=== PATIENT | male | born 1955 | race Caucasian/White ===

== ENCOUNTER 2019-10-15 12:07 | Outpatient (CLI) | payer MEDICARE, SELFPAY ==
--- NOTE | 2019-10-15 12:59 | ECG_ITS ---
Measurements Intervals [place] Rate: 64 P: -3 [place]: 177 QRS: -20 QRSD: 90 T: -11 QT: 385 QTc: 400 Interpretive Statements SINUS RHYTHM BORDERLINE T WAVE ABNORMALITY- INFERIOR LEADS BASELINE ARTIFACT- I, III, AVR, AVL, AVF, V6 BORDERLINE ECG Electronically Signed On 10-15-2019 13:17:00 WOOD REPATCHER by Lizandro Jenkins D.O.
[2019-10-15 13:29] LABS: Urine Cotinine NEGATIVE
[2019-10-15 13:31] LABS: Albumin Level 4.6 g/dL (3.5-5.1); Estimated Glomerular Filt Rate > 60; Glucose 112 mg/dL (75-110)
[2019-10-15 14:27] LABS: Basophils Absolute Auto 0.1 K/mm3 (0.0-0.1); Basophils Percent Auto 1.2 % (0.2-1.2); Eosinophils Absolute Auto 0.1 K/mm3 (0-0.3); Eosinophils Percent Auto 1.3 % (0-4.4); Hematocrit 46.2 % (42.0-52.0); Hemoglobin 15.3 g/dL (14.0-18.0); Immature Granulocyte Absolute 0.04 K/mm3 (0.00-0.031); Immature Granulocyte Percent A 0.6 % (0-0.5); Lymphocytes Absolute Auto 1.71 K/mm3 (0.9-3.2); Lymphocytes Percent Auto 25.6 % (18.3-44.2); Mean Corpuscular HGB Conc 33.1 g/dl (32-36); Mean Corpuscular Hemoglobin 32.8 pg (26-34); Mean Corpuscular Volume 98.9 fl (80-100); Monocytes Absolute Auto 0.7 K/mm3 (0.1-0.6); Monocytes Percent Auto 10.5 % (2.6-8.5); Neutrophils Absolute Auto 4.1 K/mm3 (1.3-6.7); Neutrophils Percent Auto 60.8 % (45.5-73.1); Platelet Count Result 281 k/mm3 (150-375); Red Blood Count 4.67 M/mm3 (4.6-6.20); Red Cell Distribution Width 12.2 % (11.5-14.5); White Blood Count 6.7 K/mm3 (4.5-10.0)
== END 2019-10-15 12:08 | disposition home or self-care (01) ==
LOC: ANHSURGERY 12:14
PROVIDERS: PCP Chiropractor; Visit Provider Orthopaedic Surgery
DX: Z01.818 Encounter for other preprocedural examination (principal); M17.0 Bilateral primary osteoarthritis of knee; Z41.9 Encounter for procedure for purposes other than remedying health state, unspecified
CPT/HCPCS: 36415; 80307; 82040; 82565; 82947; 83036; 85025; 87081; 93005

== ENCOUNTER 2019-12-28 08:01 | Outpatient (CLI) | payer MEDICARE, SELFPAY ==
[2019-12-28 09:23] LABS: Basophils Absolute Auto 0.1 K/mm3 (0.0-0.1); Eosinophils Absolute Auto 0.1 K/mm3 (0-0.3); Eosinophils Percent Auto 2.2 % (0-4.4); Hematocrit 45.9 % (42.0-52.0); Hemoglobin 15.4 g/dL (14.0-18.0); Immature Granulocyte Absolute 0.02 K/mm3 (0.00-0.031); Immature Granulocyte Percent A 0.3 % (0-0.5); Lymphocytes Absolute Auto 1.64 K/mm3 (0.9-3.2); Lymphocytes Percent Auto 27.7 % (18.3-44.2); Mean Corpuscular HGB Conc 33.6 g/dl (32-36); Mean Corpuscular Hemoglobin 33.2 pg (26-34); Mean Corpuscular Volume 98.9 fl (80-100); Monocytes Absolute Auto 0.7 K/mm3 (0.1-0.6); Neutrophils Absolute Auto 3.4 K/mm3 (1.3-6.7); Neutrophils Percent Auto 57.8 % (45.5-73.1); Platelet Count Result 259 k/mm3 (150-375); Red Blood Count 4.64 M/mm3 (4.6-6.20); Red Cell Distribution Width 12.3 % (11.5-14.5); White Blood Count 5.9 K/mm3 (4.5-10.0)
[2019-12-28 09:33] LABS: Hemoglobin A1C 5.3 % (<5.7); Urine Cotinine NEGATIVE
[2019-12-28 09:35] LABS: Albumin Level 4.6 g/dL (3.5-5.1); Estimated Glomerular Filt Rate > 60; Glucose 101 mg/dL (75-110)
== END 2019-12-28 08:02 | disposition home or self-care (01) ==
PROVIDERS: PCP Family Medicine; Visit Provider Orthopaedic Surgery
DX: Z01.818 Encounter for other preprocedural examination (principal); M17.0 Bilateral primary osteoarthritis of knee
CPT/HCPCS: 36415; 80307; 82040; 82565; 82947; 83036; 85025; 87081

== ENCOUNTER 2020-01-12 | Outpatient (CLI) | payer MEDICARE, SELFPAY ==
[2020-01-12 17:31] LABS: SARS-CoV-2 RNA PCR Negative
== END 2020-01-12 00:01 | disposition home or self-care (01) ==
LOC: ANHCOVIDDT
PROVIDERS: PCP Family Medicine; Visit Provider Orthopaedic Surgery
DX: Z01.818 Encounter for other preprocedural examination (principal); M17.0 Bilateral primary osteoarthritis of knee; Z11.59 Encounter for screening for other viral diseases
CPT/HCPCS: 87635; C9803; U0003

== ENCOUNTER 2020-01-14 00:51 | Day surgery (SDC) | payer MEDICARE, SELFPAY ==
[2019-10-15 12:23] VITALS: BP 182/100; PULSE 80; RESP 20; TEMP 36.8; O2SAT 99; BMI 26.7
[2019-12-28 08:21] VITALS: BMI 26.9
[2019-12-28 08:46] VITALS: BP 164/90; PULSE 80; RESP 20; TEMP 37; O2SAT 98
[2020-01-14] VITALS (14 sets, daily range): BP systolic 128–162; BP diastolic 72–95; PULSE 79–90; RESP 10–19; TEMP 36.4–37.2; O2SAT 96–100; BMI 26.9; BMI 28.5
--- NOTE | ~2020-01-14 | XR_ITS ---
EXAMINATION: XR knee LT 2V DATE: 01/14/2020 10:33 INDICATION: Left knee arthroplasty. Postop. TECHNIQUE: 2 views of left knee were obtained. COMPARISON: Left knee radiographs 08/20/2019 FINDINGS: There is a total left knee arthroplasty with patellar resurfacing in near-anatomic alignmen t. No fracture. There is gas in the knee joint and soft tissues, consistent with recent surgery. IMPRESSION: 1. Total left knee arthroplasty in near-anatomic alignment. Reviewed, dictated and finalized at location A.
--- NOTE | 2020-01-14 07:14 | WPDHPUPDATE1 ---
History and Physical Update Update Date/Time: 01/14/20 07:14 History and Physical has been reviewed, including an updated exam of the patient. There are NO changes in the patient's condition. Risks, benefits, and alternatives have been discussed and questions answered. Patient agrees to proceed with procedure.
[2020-01-14] MEDS: LACTATED RINGERS 1,000 ML 30 ML IV CONT ×2 (07:15→10:22)
[2020-01-14] MEDS: TRANEXAMIC ACID 1,000MG/ISO100 1,000 MG/100 ML BAG 200 MG IVPB (07:17)
--- NOTE | 2020-01-14 07:20 | WPDANESEPPF ---
Anes - Initial Pre Proc Eval Procedure: Operation Date: 01/14/20 07:30 Proposed Procedures p Left Total Knee Arthroplasty - Eris Jacobs MD Date/Time: 01/14/20 07:20 Surgeon: Eris Jacobs MD Pre Op Diagnosis: Left Knee OA Patient Data Age: 64 Gender: M Height: 1.88 m Weight: 95.3 kg Last Vital Signs Temp 36.8 C 01/14/20 06:30 Pulse 80 01/14/20 06:30 Resp 19 01/14/20 06:30 BP 133/72 01/14/20 06:30 Pulse Ox 100 01/14/20 06:30 Allergies Allergy/AdvReac Type Severity Reaction Status Date / Time No Known Allergies Allergy Unverified 12/28/19 08:15 Home Medications Medication Instructions Recorded Confirmed Type acetaminophen [Tylenol Extra 1,000 mg PO BID PRN 10/15/19 01/08/20 History Strength] acetaminophen-codeine 1 tablet PO DAILY 10/15/19 01/08/20 History [Tylenol-Codeine #3] multivitamin 1 tablet PO DAILY 10/15/19 01/08/20 History carvedilol [Coreg] 3.125 mg PO BID 12/28/19 01/08/20 History meloxicam [Mobic] 15 mg PO DAILY 12/28/19 01/08/20 History ECG: Date of Service: 10/15/19 Procedure(s): CA 12 lead EKG Accession Number(s): [id number] cc: ~ Measurements Intervals [place] Rate: 64 P: -3 [place]: 177 QRS: -20 QRSD: 90 T: -11 QT: 385 QTc: 400 Interpretive Statements SINUS RHYTHM BORDERLINE T WAVE ABNORMALITY- INFERIOR LEADS BASELINE ARTIFACT- I, III, AVR, AVL, AVF, V6 BORDERLINE ECG Electronically Signed On 10-15-2019 13:17:00 PERINATAL SPECIALIST by Lizandro Jenkins D.O. Dictated By: Lizandro Jenkins DO 10/15/19 1325 Patient hx anesthesia problems: none Family hx anesthesia problems: none PMFSH Past Medical History Medical History (Updated 01/14/20 @ 07:22 by Doe Del Valle MD) Colon cancer COLON RESECTION 2008 HTN (hypertension) Osteoarthritis of both knees Anes - Eval Final PreProcedure Day of Procedure 01/14/20 07:20 Patient weight: overweight Heart: regular rate and rhythm Lungs: clear to auscultation and normal air movement Airway: Mallampati scale class II Neurological: alert and oriented Last oral intake: >/= 8 hours ASA classification: III Emergent: no Anesthetic plan: proceed Anesthesia type and monitoring: general LMA Informed Consent: The patient's anesthetic plan and its attendant risks and benefits were discussed with the patient/family/POA. Questions were solicited and answers provided to the satisfaction of the patient/family/POA.
--- NOTE | 2020-01-14 07:22 | WPDANESPNB ---
Anes - Peripheral Nerve Block Date/Time: 01/14/20 07:22 I have discussed with the patient/family/POA the placement of a peripheral nerve block for post-operative pain management, including associated risks, benefits, complications, and side effects. Alternative methods of post-operative analgesia were detailed. Questions were solicited and answers provided to the satisfaction of the patient/family/POA. Time-Out: A pre-procedural Time-Out was completed immediately before starting the procedure and confirmed: Patient Identification, Site, Procedure, Patient Position and the Availability of Requisite Equipment. Clinical Indications: Acute post-operative pain management requested by the operative surgeon. Nerve Block Insertion Note Anes-nerve block: adductor canal left Patient position: supine Skin prep: chlorhexidine Needle: 22 gauge, stimulating, insulated echogenic needle. Needle length: 80 mm Technique: ultrasound Technique comment: in plane Injectate: bupivacaine 0.5% with epi 5 mcg/ml (30cc) Observations: tolerated well Complications: none Procedure start time:: 730 Procedure end time:: 735
[2020-01-14] MEDS: ceFAZolin 2 GM/D5W 50 ML 2 GM/50 ML BAG IVPB ×2 (07:41→15:50)
[2020-01-14] MEDS: GENTAMICIN BONE CEMENT REFOBACIN 1 EACH TOPICAL (08:28)
--- NOTE | 2020-01-14 10:59 | SUR.PHASEI ---
1100 UPDATED SPOUSE ON PT CONDITION
--- NOTE | 2020-01-14 11:13 | SUR.PHASEI ---
111 sbar faxed floor notified
--- NOTE | 2020-01-14 11:50 | PC.NURSE ---
This patient, Robert Naylor, was admitted to 2 Medical Room 259-01. Patient/family oriented to hospital policies and general routines including ID bracelet, bed and alarms, visiting hours, pain management, procedures, bathroom and other care routines, personal items, smoking policy, room service/diet, and visiting hours. Valuables list has been completed. Information on how to activate the Rapid Response Team has been discussed. Patient/Family are encouraged to report perceived risks to care and to ask questions if they do not understand what they are told or what they should do.
[2020-01-14] MEDS: SODIUM CHLORIDE 0.9% IV 1,000 ML 125 ML IV CONT (12:39)
[2020-01-14] MEDS: DOCUSATE SODIUM 100 MG CAPSULE PO (17:36)
[2020-01-14] MEDS: ASPIRIN 81 MG ENTERIC TABLET PO (17:36)
[2020-01-14] MEDS: carvediloL 3.125 MG TABLET PO (17:37)
[2020-01-14] MEDS: FAMOTIDINE 20 MG TABLET PO (20:31)
[2020-01-15] MEDS: ceFAZolin 2 GM/D5W 50 ML 2 GM/50 ML BAG IVPB ×2 (00:07→08:18)
[2020-01-15 01:29] VITALS: BP 139/79; PULSE 95; RESP 20; TEMP 36.2; O2SAT 99
[2020-01-15 05:01] LABS: Basophils Percent Auto 0.1 % (0.2-1.2); Eosinophils Percent Auto 0.1 % (0-4.4); Hemoglobin 12.5 g/dL (14.0-18.0); Immature Granulocyte Percent A 0.7 % (0-0.5); Lymphocytes Absolute Auto 1.59 K/mm3 (0.9-3.2); Lymphocytes Percent Auto 10.7 % (18.3-44.2); Mean Corpuscular HGB Conc 33.8 g/dl (32-36); Mean Corpuscular Hemoglobin 33.1 pg (26-34); Mean Corpuscular Volume 97.9 fl (80-100); Mean Platelet Volume 8.8 fl (7.4-10.4); Monocytes Absolute Auto 1.1 K/mm3 (0.1-0.6); Monocytes Percent Auto 7.3 % (2.6-8.5); Neutrophils Absolute Auto 12.1 K/mm3 (1.3-6.7); Neutrophils Percent Auto 81.1 % (45.5-73.1); Platelet Count Result 224 k/mm3 (150-375); Red Blood Count 3.78 M/mm3 (4.6-6.20); Red Cell Distribution Width 12.4 % (11.5-14.5); White Blood Count 14.9 K/mm3 (4.5-10.0)
[2020-01-15 05:12] LABS: Blood Urea Nitrogen 10 mg/dL (9-20); Calcium 8.6 mg/dL (8.4-10.2); Carbon Dioxide 26 mmol/L (22-30); Chloride 99 mmol/L (98-107); Estimated CRCL calculation 133 ml/min; Estimated Glomerular Filt Rate > 60; Glucose 113 mg/dL (75-110); Potassium 4.1 mmol/L (3.4-5.0); Sodium 131 mmol/L (137-145)
[2020-01-15 05:29] VITALS: BP 126/72; PULSE 78; RESP 18; TEMP 35.9; O2SAT 98
[2020-01-15] MEDS: MELOXICAM 7.5 MG TABLET 15 MG PO (08:16)
[2020-01-15] MEDS: FAMOTIDINE 20 MG TABLET PO (08:16)
[2020-01-15] MEDS: DOCUSATE SODIUM 100 MG CAPSULE PO (08:16)
[2020-01-15 08:17] VITALS: PULSE 82
[2020-01-15] MEDS: MULTIVITAMINS THERAPEUTIC TAB (*BKC) 1 TABLET PO (08:17)
[2020-01-15] MEDS: ASPIRIN 81 MG ENTERIC TABLET PO (08:17)
[2020-01-15] MEDS: carvediloL 3.125 MG TABLET PO (08:17)
[2020-01-15 14:00] VITALS: BP 121/67; PULSE 78; RESP 19; TEMP 36.4; O2SAT 100
--- NOTE | 2020-01-15 16:13 | PM.PROC ---
Procedure Note - Detailed Date of procedure: 01/14/20 Pre-op diagnosis: Left Knee OA Post-op diagnosis: same Procedure performed: Total knee arthroplasty Description of procedure: Complex knee arthroplasty. Preoperative posterior cruciate insufficiency. Severe varus thrust, with global laxity. Hyperextension gait preoperatively. Required posterior stabilized knee and polyethylene tibial buildup, despite modest bony resection. Moderate medial release only due to medial pseudolaxity. Bone quality was excellent. Short tibial stem was used due to concern about the patient's gait disturbance and additional stress on the tibial component due to preoperative bone loss and ligament dysfunction. Implants: [employer] knee system, [employer] base plate cemented tibia size 6, Posterior cruciate stabilized cemented femoral component size 5 ,and an 19 mm posterior stabilized polyethylene insert. 38mm polyethylene patella component. Anesthesia: GETA and regional (subsartorial nerve block) Surgeon: Eris Jacobs MD Estimated blood loss (mL): 200 Tourniquet time (min): 90 Drains: No Complications: None Condition: stable Findings: OPERATIVE DETAILS: The patient was given a nerve block preoperatively, and then brought to the operating room. A general anesthetic was administered. The leg was prepped and draped in the usual sterile fashion. The limb was elevated and the tourniquet inflated to 300 mmHg during the procedure. A longitudinal incision was created along the medial border of the patella and patellar tendon, and a high mid-vastus approach to the knee was performed. A moderate medial release was taken. The knee was then flexed. The osteophytes were carefully removed. The intramedullary guide was placed in the femoral canal. The distal femoral resection was then taken with the oscillating saw, at 8mm. The collateral ligaments were carefully protected. The tibia was carefully exposed. The jig was applied, and the proximal tibia was resected according to the preoperative plan, with 2mm medial resection. The knee was balanced in extension, with slight increased medial release needed. Extension gap measured a 16 mm medially and 19 mm laterally. Later after assessment of the posterior gap it was clear that the 19 mm polyethylene would be appropriate for the flexion gap and lateral gap. Thus, slight increased medial release was taken to accommodate the 19 mm polyethylene. The anterior cruciate ligament and meniscal remnants were removed. The posterior cruciate ligament was sacrificed. The patella was measured. Patellar resection was carried out with the oscillating saw. The 38 mm asymmetric button fit essentially lines aligned. Less than 1 mm overhang proximally was observed after final cementation. The femur was sized and rotation assessed using a combination of gap balancing, posterior referencing, and the AP axis. External rotation was increased to 4?. The 4 in 1 cutting block, and the box cut guide were used to finish the femoral cuts after equal gaps were assured. The osteophytes were carefully removed from the back of the knee. The knee was copiously irrigated with antibiotic solution periodically throughout the procedure. The meniscal remnants were removed. The spacer block was used to confirm equal flexion and extension gaps. The tibia was sized and broached. Central drilling for the short stem was performed. The bony surfaces were prepared for cementing with pulsatile lavage. The real tibia,femur, and patella were cemented. Excess cement was carefully removed. Patellar tracking was carefully assessed. No additional releases were required. The real polyethylene insert was finally placed. Range of motion was from 0-135 degrees easily easily. Excellent overall balance. 1 mm medial gap in extension and 2 mm extension lateral gap. Flexion was 2 mm and 3 mm. It was observed that the hyperextension moment could be reproduced with the 16 mm polyethyl
--- NOTE | 2020-01-15 16:25 | P.DS_ITS ---
DS: Admitting Diagnosis Admitting Diagnosis Admitting Diagnosis: Degenerative arthritis, knee. DS: Discharge Diagnosis Discharge Diagnosis (1) History of arthroplasty of left knee: Code(s): Z96.652 - Presence of left artificial knee joint Status: Acute DS: Summary Hospital Course Reason for hospitalization: Total knee arthroplasty. Hospital Course: Tolerated surgery well. Progressed appropriately with therapy. Status at Discharge Functional status at discharge: uses cane/walker Time Spent with Patient Time attestation: Total time spent providing and/or coordinating discharge services: Exam Const: General: no acute distress Resp: Effort & Inspection: normal respiratory effort Skin: Other: Wound healing well. Mepilex dressing intact. No hematoma or drainage. Neuro: Motor exam (neuro): 5/5 motor strength present throughout Sensory Exam: normal sensation Psych: Mental Status: mental status grossly normal Speech and movement: Normal speech and movement present DS: Data Data Completed and Pending Labs on day of discharge: Labs from last 24 hours 01/15/20 01/15/20 04:47 04:47 WBC 14.9 H RBC 3.78 L Hgb 12.5 L Hct 37.0 L MCV 97.9 MCH 33.1 MCHC 33.8 RDW 12.4 Plt Count 224 MPV 8.8 Immature Gran % (Auto) 0.7 H Neut % (Auto) 81.1 H Lymph % (Auto) 10.7 L [place] % (Auto) 7.3 Eos % (Auto) 0.1 Baso % (Auto) 0.1 L Lymph # (Auto) 1.59 [place] # (Auto) 1.1 H Eos # (Auto) 0.0 Baso # (Auto) 0.0 Abs Immat Gran (auto) 0.10 H Absolute Neuts (auto) 12.1 H Absolute Nucleated RBC 0.0 Nucleated RBC % 0.0 Sodium 131 L Potassium 4.1 Chloride 99 Carbon Dioxide 26 BUN 10 Creatinine 0.50 L Estim Creat Clear Calc 133 Estimated GFR > 60 Glucose 113 H Calcium 8.6 Discharge Plan Discharge Patient Disposition: Home, Self-Care Discharge Instructions: See instruction sheet. Patient Instructions: Antibiotic Form, Pain Management (DC), Fall Prevention (DC), Knee Replacement (DC), Knee Arthroscopy (DC) Follow-up/Referrals: Eris Jacobs MD [Physician] - Discharge Medications: New oxycodone-acetaminophen 5-325 mg tablet 1 - 2 tablet PO Q4-6H MDD 6 tablets PRN (Reason: pain (scale score 7-10)) Qty: 40 RF: 0 Continued multivitamin Tablet 1 tablet PO DAILY RF: 0 acetaminophen [Tylenol Extra Strength] 500 mg Tablet 1,000 mg PO BID PRN (Reason: PAIN) RF: 0 meloxicam [Mobic] 15 mg Tablet 15 mg PO DAILY RF: 0 carvedilol [Coreg] 3.125 mg Tablet 3.125 mg PO BID RF: 0 lisinopril 20 mg tablet 20 mg PO DAILY RF: 0 No Action acetaminophen-codeine [Tylenol-Codeine #3] 300-30 mg Tablet 1 tablet PO DAILY RF: 0 Discharge Date/Time: 01/15/20 15:52 Quality VTE Prophylaxis VTE prophylaxis: mechanical ordered (CHINYERE guardado and Agustin)
== END 2020-01-15 15:52 | disposition home or self-care (01) ==
LOC: ANHSURGERY 06:19 → ANH2MED 11:46
PROVIDERS: PCP Chiropractor; Visit Provider Orthopaedic Surgery
PROC: (CPT 27447; principal; 2020-01-14 07:30)
DX: M17.12 Unilateral primary osteoarthritis, left knee (principal); G89.18 Other acute postprocedural pain; I10 Essential (primary) hypertension; Z85.038 Personal history of other malignant neoplasm of large intestine; Z90.49 Acquired absence of other specified parts of digestive tract
CPT/HCPCS: 27447; 64447; 36415; 73560; 80048; 85025; 86850; 86900; 86901; 97110; 97116; 97161; 97165; A9270; C1713; C1776; J0131; J0171; J0690; J1100; J1170; J1885; J2250; J2270; J2405; J2704; J2795; J3010; J7030; J7120

== ENCOUNTER 2020-10-28 13:46 | Outpatient (CLI) | payer MEDICARE, SELFPAY ==
[2020-10-28 14:31] LABS: Hematocrit 48.3 % (42.0-52.0); Hemoglobin 16.7 g/dL (14.0-18.0)
--- NOTE | 2020-10-28 14:31 | ECG_ITS ---
Measurements Intervals [place] Rate: 62 P: [place]: 0 QRS: -18 QRSD: 93 T: 0 QT: 400 QTc: 406 Interpretive Statements SINUS OR ECTOPIC ATRIAL RHYTHM DELAYED PRECORDIAL R/S TRANSITION BORDERLINE T WAVE ABNORMALITY- INFERIOR LEADS BASELINE ARTIFACT- I, II, III, AVR, AVL, AVF, V4-V6 BORDERLINE ECG Electronically Signed On 10-28-2020 15:09:55 PORTFOLIO CONSULTANT by Lizandro Jenkins D.O.
[2020-10-28 14:42] LABS: Albumin Level 4.9 g/dL (3.5-5.1); Estimated Glomerular Filt Rate > 60; Glucose 109 mg/dL (75-110)
[2020-10-28 14:51] LABS: Urine Cotinine NEGATIVE
[2020-10-28 23:17] LABS: Hemoglobin A1C 5.1 % (<5.7)
== END 2020-10-28 13:47 | disposition home or self-care (01) ==
PROVIDERS: PCP Chiropractor; Visit Provider Orthopaedic Surgery
DX: M17.11 Unilateral primary osteoarthritis, right knee (principal); Z01.818 Encounter for other preprocedural examination; R94.31 Abnormal electrocardiogram [ECG] [EKG]
CPT/HCPCS: 80307; 82040; 82565; 82947; 83036; 85014; 85018; 93005

== ENCOUNTER 2020-12-05 13:57 | Outpatient (CLI) | payer MEDICARE, SELFPAY ==
[2020-12-05 15:42] LABS: Basophils Percent Auto 0.6 % (0.2-1.2); Eosinophils Absolute Auto 0.1 K/mm3 (0-0.3); Eosinophils Percent Auto 1.1 % (0-4.4); Hematocrit 46.9 % (42.0-52.0); Hemoglobin 15.6 g/dL (14.0-18.0); Immature Granulocyte Absolute 0.02 K/mm3 (0.00-0.031); Immature Granulocyte Percent A 0.3 % (0-0.5); Lymphocytes Absolute Auto 1.53 K/mm3 (0.9-3.2); Lymphocytes Percent Auto 23.2 % (18.3-44.2); Mean Corpuscular HGB Conc 33.3 g/dl (32-36); Mean Corpuscular Hemoglobin 33.5 pg (26-34); Mean Corpuscular Volume 100.6 fl (80-100); Mean Platelet Volume 8.6 fl (7.4-10.4); Monocytes Absolute Auto 0.7 K/mm3 (0.1-0.6); Monocytes Percent Auto 11.1 % (2.6-8.5); Neutrophils Absolute Auto 4.2 K/mm3 (1.3-6.7); Neutrophils Percent Auto 63.7 % (45.5-73.1); Platelet Count Result 273 k/mm3 (150-375); Red Blood Count 4.66 M/mm3 (4.6-6.20); Red Cell Distribution Width 12.3 % (11.5-14.5); White Blood Count 6.6 K/mm3 (4.5-10.0)
== END 2020-12-05 13:58 | disposition home or self-care (01) ==
LOC: ANHSURGERY 14:00
PROVIDERS: PCP Chiropractor; Visit Provider Orthopaedic Surgery
DX: M17.11 Unilateral primary osteoarthritis, right knee (principal); Z01.818 Encounter for other preprocedural examination
CPT/HCPCS: 36415; 85025; 86850; 86900; 86901; 87081

== ENCOUNTER → 2020-12-12 04:09 | Outpatient (CLI) | payer MEDICARE, SELFPAY ==
[2020-12-12 19:58] LABS: SARS-CoV-2 RNA PCR Negative
== END ==
PROVIDERS: PCP Chiropractor; Visit Provider Orthopaedic Surgery
DX: Z01.812 Encounter for preprocedural laboratory examination (principal); Z20.822 Contact with and (suspected) exposure to COVID-19
CPT/HCPCS: C9803; U0003; U0005

== ENCOUNTER 2020-12-15 01:04 | Day surgery (SDC) | payer MEDICARE, SELFPAY ==
[2020-12-05 14:29] VITALS: BP 182/97; PULSE 58; RESP 18; TEMP 36.9; O2SAT 97; BMI 28.8
--- NOTE | 2020-12-14 09:58 | WPDANESEPPF ---
Anes - Initial Pre Proc Eval Procedure: Operation Date: 12/15/20 07:30 Proposed Procedures p Right Total Knee Arthroplasty - Eris Jacobs MD Date/Time: 12/14/20 09:58 Surgeon: Eris Jacobs MD Pre Op Diagnosis: primary OA right knee Patient Data Age: 65 Gender: M Height: 1.83 m Weight: 96.2 kg Last Vital Signs Temp 36.9 C 12/05/20 14:29 Pulse 58 L 12/05/20 14:29 Resp 18 12/05/20 14:29 BP 182/97 H 12/05/20 14:29 Pulse Ox 97 12/05/20 14:29 Allergies Allergy/AdvReac Type Severity Reaction Status Date / Time No Known Allergies Allergy Verified 12/15/20 06:10 Home Medications Medication Instructions Recorded Confirmed Type acetaminophen-codeine 1 tablet PO BID PRN 10/15/19 12/15/20 History [Tylenol-Codeine #3] multivitamin 1 tablet PO DAILY 10/15/19 12/15/20 History meloxicam [Mobic] 15 mg PO DAILY 12/28/19 12/15/20 History lisinopril 20 mg PO DAILY 01/14/20 12/15/20 History acetaminophen [Tylenol Extra 1,000 mg PO QID PRN 12/05/20 12/15/20 History Strength] carvedilol 12.5 mg PO BID 12/05/20 12/15/20 History Patient hx anesthesia problems: none Family hx anesthesia problems: none PMFSH Past Medical History Medical History (Updated 12/14/20 @ 09:59 by Doe Del Valle MD) Anxiety Colon cancer COLON RESECTION 2008 HTN (hypertension) Osteoarthritis of both knees Surgical History Surgical History History of arthroplasty of left knee (~01/11/20) Family History Family History Other Colon cancer Mother Hypertension Social History Social History Smoking status: Never smoker Alcohol intake: current Drinks per week: 84 Alcohol use details: BEER Substance use: never Substance use type: prescription drug Other substance usage details: Tylenol 3 Last use: 01/13/2020 Living arrangements: with family Additional living arrangements comments: Gender identity (if verbalized by the patient): Male Spiritual care concerns: No Anes - Eval Final PreProcedure Day of Procedure 12/14/20 09:58 Patient weight: overweight Heart: regular rate and rhythm Lungs: clear to auscultation and normal air movement Airway: Mallampati scale class II Neurological: alert and oriented Last oral intake: >/= 8 hours ASA classification: II Emergent: no Anesthetic plan: proceed Anesthesia type and monitoring: general LMA Informed Consent: The patient's anesthetic plan and its attendant risks and benefits were discussed with the patient/family/POA. Questions were solicited and answers provided to the satisfaction of the patient/family/POA.
--- NOTE | 2020-12-14 10:00 | WPDANESPNB ---
Anes - Peripheral Nerve Block Date/Time: 12/14/20 10:00 I have discussed with the patient/family/POA the placement of a peripheral nerve block for post-operative pain management, including associated risks, benefits, complications, and side effects. Alternative methods of post-operative analgesia were detailed. Questions were solicited and answers provided to the satisfaction of the patient/family/POA. Time-Out: A pre-procedural Time-Out was completed immediately before starting the procedure and confirmed: Patient Identification, Site, Procedure, Patient Position and the Availability of Requisite Equipment. Clinical Indications: Acute post-operative pain management requested by the operative surgeon. Nerve Block Insertion Note Anes-nerve block: adductor canal right Patient position: supine Skin prep: chlorhexidine Needle: 22 gauge, stimulating, insulated echogenic needle. Needle length: 80 mm Technique: ultrasound Technique comment: in plane Injectate: bupivacaine 0.5% with epi 5 mcg/ml (30cc) Observations: tolerated well Complications: none Procedure start time:: 720 Procedure end time:: 725
[2020-12-15] VITALS (14 sets, daily range): BP systolic 138–189; BP diastolic 68–113; PULSE 65–98; RESP 10–20; TEMP 35.9–37.2; O2SAT 98–100
--- NOTE | ~2020-12-15 | XR_ITS ---
EXAMINATION: XR knee RT 2V DATE: 12/15/2020 10:27 CDT INDICATION: Right total knee arthroplasty TECHNIQUE: 2 views right knee FINDINGS: There is a right total knee arthroplasty in expected position. Subcutaneous gas with fluid and air in the joint are consistent with recent surgery. No evidence of periprosthetic fracture. IMPRESSION: 1. Recent right total knee arthroplasty. Reviewed, dictated and finalized at location B.
[2020-12-15] MEDS: ACETAMINOPHEN 500 MG TABLET 1000 MG PO (06:33)
[2020-12-15] MEDS: LACTATED RINGERS 1,000 ML 30 ML IV CONT ×2 (06:40→10:11)
[2020-12-15] MEDS: TRANEXAMIC ACID 1,000MG/ISO100 1,000 MG/100 ML BAG 200 MG IVPB (06:44)
--- NOTE | 2020-12-15 07:03 | WPDHPUPDATE1 ---
History and Physical Update Update Date/Time: 12/15/20 07:03 History and Physical has been reviewed, including an updated exam of the patient. There are NO changes in the patient's condition. Risks, benefits, and alternatives have been discussed and questions answered. Patient agrees to proceed with procedure.
[2020-12-15] MEDS: ceFAZolin 2 GM/D5W 50 ML 2 GM/50 ML BAG IVPB (07:26)
--- NOTE | 2020-12-15 10:28 | P.OP_ITS ---
Procedure Note - Detailed Date of procedure: 12/15/20 Pre-op diagnosis: primary OA right knee Post-op diagnosis: same Procedure performed: Total knee arthroplasty, right. Description of procedure: Excellent bone quality. Severe medial pseudolaxity. Moderate medial release. Posterior stabilized balanced very well. Anterior patella prominence noted pre-op was unchanged post-op. Slight blend on the anterolateral femur with the size 5. The 6 appeared oversized. Implants: [employer] size 5 press-fit femur, size 6 cemented low-profile tibia, 14mm polyethylene insert (posterior stabilized), 38mm asymmetric metal backed patellar component. Anesthesia: GETA and regional (subsartorial nerve block) Surgeon: Eris Jacobs MD Estimated blood loss (mL): 200 Drains: No Complications: None Condition: stable Disposition: PACU Findings: OPERATIVE DETAILS: The patient was given a nerve block preoperatively, and then brought to the operating room. A general anesthetic was administered. The leg was prepped and draped in the usual sterile fashion. The limb was elevated and the tourniquet inflated to 300 mmHg during initial exposure, and cementation. A longitudinal incision was created along the medial border of the patella and patellar tendon, and a Trivector approach to the knee was performed. A moderate medial release was taken. The knee was then flexed. The osteophytes were carefully removed. The intramedullary guide was placed in the femoral canal. The distal femoral resection was then taken with the oscillating saw. The collateral ligaments were carefully protected. The tibia was carefully exposed. The jig was applied, and the proximal tibia was resected according to preoperative plan. The knee was balanced in extension. Appropriate releases were taken where needed. The anterior cruciate ligament and meniscal remnants were removed. The posterior cruciate ligament was preserved. The patella was measured. Patellar resection was carried out with the oscillating saw. The lug holes drilled. The femur was sized and rotation assessed using a combination of gap balancing, posterior referencing, and the AP axis. The 4 in 1 cutting block was used to finish the femoral cuts after equal gaps were assured. The box cut was taken, and the trial femur placed. The lug holes were drilled. The osteophytes were carefully removed from the back of the knee. The knee was copiously irrigated with antibiotic solution periodically throughout the procedure. The meniscal remnants were removed. The spacer block was used to con firm equal flexion and extension gaps. Slight increase medial release performed. The tibia was sized and broached. The bony surfaces were prepared for cementing with pulsatile lavage. The real tibial component was cemented into position followed by press fitting the femoral component. Excess cement was carefully removed. The patella component was press-fit. Patellar tracking was carefully assessed. No additional releases were required. The wound was closed with #1 Vycril suture, #2 Quill suture, 0-Quill suture, and 2-0 Quill suture followed by Steri-Strips. A sterile bulky dressing was applied. Meticulous hemostasis was maintained throughout the procedure. There were no complications. The patient was extubated and brought to the recovery room in stable condition after the application of sterile dressing with Azar bandage.
[2020-12-15] MEDS: fentaNYL CITRATE INJ (*CRX) 100 MCG/2 ML VIAL 25 MCG IV PUSH ×5 (10:32→11:07)
[2020-12-15] MEDS: hydrALAZINE HCL 20 MG/ML VIAL 10 MG IV PUSH (11:02)
[2020-12-15] MEDS: oxyCODONE HCL (*CRX) 5 MG TAB IR 10 MG PO ×2 (12:52→21:35)
[2020-12-15] MEDS: SODIUM CHLORIDE 0.9% IV 1,000 ML 125 ML IV CONT (12:53)
[2020-12-15] MEDS: ASPIRIN 81 MG ENTERIC TABLET PO (16:45)
[2020-12-15] MEDS: carvediloL 12.5 MG TABLET PO (16:45)
[2020-12-15] MEDS: DOCUSATE SODIUM 100 MG CAPSULE PO (16:45)
[2020-12-15] MEDS: oxyCODONE HCL (*CRX) 5 MG TAB IR PO (18:28)
[2020-12-15] MEDS: SENNOSIDES 8.6 MG TABLET 17.2 MG PO (20:01)
[2020-12-16] MEDS: oxyCODONE HCL (*CRX) 5 MG TAB IR PO ×2 (01:00→14:41)
[2020-12-16 04:20] VITALS: BP 142/81; PULSE 70; RESP 16; TEMP 36.3; O2SAT 96
[2020-12-16 05:37] LABS: Basophils Percent Auto 0.2 % (0.2-1.2); Hematocrit 39.8 % (42.0-52.0); Hemoglobin 13.3 g/dL (14.0-18.0); Immature Granulocyte Absolute 0.05 K/mm3 (0.00-0.031); Immature Granulocyte Percent A 0.4 % (0-0.5); Lymphocytes Absolute Auto 1.15 K/mm3 (0.9-3.2); Lymphocytes Percent Auto 9.6 % (18.3-44.2); Mean Corpuscular HGB Conc 33.4 g/dl (32-36); Mean Corpuscular Hemoglobin 32.9 pg (26-34); Mean Corpuscular Volume 98.5 fl (80-100); Mean Platelet Volume 8.5 fl (7.4-10.4); Monocytes Absolute Auto 1.1 K/mm3 (0.1-0.6); Monocytes Percent Auto 8.9 % (2.6-8.5); Neutrophils Absolute Auto 9.7 K/mm3 (1.3-6.7); Neutrophils Percent Auto 80.9 % (45.5-73.1); Platelet Count Result 258 k/mm3 (150-375); Red Blood Count 4.04 M/mm3 (4.6-6.20); Red Cell Distribution Width 12.1 % (11.5-14.5); White Blood Count 11.9 K/mm3 (4.5-10.0)
[2020-12-16 05:48] LABS: Anion Gap 6 mmol/L (8-16); Blood Urea Nitrogen 9 mg/dL (9-20); Calcium 8.5 mg/dL (8.4-10.2); Carbon Dioxide 25 mmol/L (22-30); Chloride 102 mmol/L (98-107); Estimated CRCL calculation 111 ml/min; Estimated Glomerular Filt Rate > 60; Glucose 122 mg/dL (75-110); Sodium 133 mmol/L (137-145)
[2020-12-16] MEDS: oxyCODONE HCL (*CRX) 5 MG TAB IR 10 MG PO ×2 (06:07→10:13)
[2020-12-16] MEDS: MULTIVITAMINS THERAPEUTIC TAB (*BKC) 1 TABLET PO (08:42)
[2020-12-16] MEDS: DOCUSATE SODIUM 100 MG CAPSULE PO (08:42)
[2020-12-16] MEDS: MELOXICAM 7.5 MG TABLET 15 MG PO (08:42)
[2020-12-16 08:43] VITALS: PULSE 70
[2020-12-16] MEDS: carvediloL 12.5 MG TABLET PO (08:43)
[2020-12-16] MEDS: ASPIRIN 81 MG ENTERIC TABLET PO (08:43)
[2020-12-16] MEDS: lisinopriL 20 MG TABLET PO (08:43)
--- NOTE | 2020-12-16 08:53 | P.PNAN_ITS ---
Anes - Prog Note Post-Op Date/Time: 12/16/20 08:53 Cardiovascular status: normal Respiratory status: normal Airway patency: baseline Mental status: baseline Post-Op hydration status: normal Vital Signs: Last Vital Signs Temp 36.3 C L 12/16/20 04:20 Pulse 70 12/16/20 08:43 Resp 16 12/16/20 04:20 BP 142/81 H 12/16/20 04:20 Pulse Ox 96 12/16/20 04:20 Pain Score (VAS): 0 I/O: Intake & Output 12/15/20 12/16/20 12/16/20 23:59 07:59 15:59 Intake Total 1250 250 Balance 1250 250 Laboratory Tests 12/16/20 05:21 12/16/20 05:21 12/16/20 12/16/20 05:21 05:21 WBC 11.9 H RBC 4.04 L Hgb 13.3 L Hct 39.8 L MCV 98.5 MCH 32.9 MCHC 33.4 RDW 12.1 Plt Count 258 MPV 8.5 Immature Gran % (Auto) 0.4 Neut % (Auto) 80.9 H Lymph % (Auto) 9.6 L [place] % (Auto) 8.9 H Eos % (Auto) 0.0 Baso % (Auto) 0.2 Lymph # (Auto) 1.15 [place] # (Auto) 1.1 H Eos # (Auto) 0.0 Baso # (Auto) 0.0 Abs Immat Gran (auto) 0.05 H Absolute Neuts (auto) 9.7 H Absolute Nucleated RBC 0.0 Nucleated RBC % 0.0 Sodium 133 L Potassium 4.0 Chloride 102 Carbon Dioxide 25 Anion Gap 6 L BUN 9 Creatinine 0.60 L Estim Creat Clear Calc 111 Estimated GFR > 60 Glucose 122 H Calcium 8.5 Post-procedural complaints: none Patient Feedback: Patient satisfied with anesthetic care.
[2020-12-16 09:35] VITALS: BP 128/71; PULSE 62; RESP 18; TEMP 35.9; O2SAT 100
[2020-12-16 13:35] VITALS: BP 149/79; PULSE 58; RESP 18; TEMP 35.9; O2SAT 100
--- NOTE | 2020-12-16 14:57 | P.DS_ITS ---
DS: Admitting Diagnosis Admitting Diagnosis Admitting Diagnosis: Djd knee, right. DS: Discharge Diagnosis Discharge Diagnosis (1) Osteoarthritis of right knee: Qualifiers: Osteoarthritis type: primary Qualified Code(s): M17.11 - Unilateral primary osteoarthritis, right knee Code(s): M17.11 - Unilateral primary osteoarthritis, right knee Status: Acute (2) Status post total knee replacement, right: Code(s): Z96.651 - Presence of right artificial knee joint Status: Acute DS: Summary Hospital Course Reason for hospitalization: Total knee arthroplasty. Hospital Course: Tolerated surgery well. Progressed appropriately with therapy. Status at Discharge Functional status at discharge: uses cane/walker Overall status at discharge: patient is progressing back to baseline Time Spent with Patient Time attestation: Total time spent providing and/or coordinating discharge services: Exam Const: General: no acute distress Resp: Effort & Inspection: normal respiratory effort Skin: Other: Wound healing well. Mepilex dressing intact. No hematoma or drainage. Neuro: Motor exam (neuro): 5/5 motor strength present throughout Sensory Exam: normal sensation Psych: Mental Status: mental status grossly normal Speech and movement: Normal speech and movement present DS: Data Data Completed and Pending Labs on day of discharge: Labs from last 24 hours 12/16/20 12/16/20 05:21 05:21 WBC 11.9 H RBC 4.04 L Hgb 13.3 L Hct 39.8 L MCV 98.5 MCH 32.9 MCHC 33.4 RDW 12.1 Plt Count 258 MPV 8.5 Immature Gran % (Auto) 0.4 Neut % (Auto) 80.9 H Lymph % (Auto) 9.[address] [place] % (Auto) 8.9 H Eos % (Auto) 0.0 Baso % (Auto) 0.2 Lymph # (Auto) 1.15 [place] # (Auto) 1.1 H Eos # (Auto) 0.0 Baso # (Auto) 0.0 Abs Immat Gran (auto) 0.05 H Absolute Neuts (auto) 9.7 H Absolute Nucleated RBC 0.0 Nucleated RBC % 0.0 Sodium 133 L Potassium 4.0 Chloride 102 Carbon Dioxide 25 Anion Gap 6 L BUN 9 Creatinine 0.60 L Estim Creat Clear Calc 111 Estimated GFR > 60 Glucose 122 H Calcium 8.5 Discharge Plan Discharge Patient Disposition: Home, Self-Care Discharge Instructions: See instruction sheet. Patient Instructions: Knee Replacement (DC) Follow-up/Referrals: Eris Jacobs MD [Physician] - Discharge Medications: New oxycodone-acetaminophen 5-325 mg tablet 1 - 2 tablet PO Q4-6H MDD 8 tablets PRN (Reason: pain) Qty: 40 RF: 0 Continued multivitamin Tablet 1 tablet PO DAILY RF: 0 meloxicam [Mobic] 15 mg Tablet 15 mg PO DAILY RF: 0 lisinopril 20 mg tablet 20 mg PO DAILY RF: 0 carvedilol 12.5 mg tablet 12.5 mg PO BID RF: 0 Discontinued acetaminophen-codeine [Tylenol-Codeine #3] 300-30 mg Tablet 1 tablet PO BID PRN (Reason: Pain) RF: 0 acetaminophen [Tylenol Extra Strength] 500 mg tablet 1,000 mg PO QID PRN (Reason: Pain) RF: 0 Quality VTE Prophylaxis VTE prophylaxis: mechanical ordered (CHINYERE guardado and Agustin)
== END 2020-12-16 16:00 | disposition home or self-care (01) ==
LOC: ANHSURGERY 05:57 → ANH2MED 12:09
PROVIDERS: PCP Chiropractor; Visit Provider Orthopaedic Surgery
PROC: (CPT 27447; principal; 2020-12-15 07:30)
DX: M17.11 Unilateral primary osteoarthritis, right knee (principal); G89.18 Other acute postprocedural pain; I10 Essential (primary) hypertension; F41.9 Anxiety disorder, unspecified; E66.3 Overweight; Z68.28 Body mass index [BMI] 28.0-28.9, adult; Z85.038 Personal history of other malignant neoplasm of large intestine; Z90.49 Acquired absence of other specified parts of digestive tract
CPT/HCPCS: 27447; 64415; 36415; 73560; 80048; 85025; 97110; 97116; 97161; 97165; 97530; 97535; A9270; C1776; J0131; J0171; J0360; J0690; J1100; J1885; J2250; J2270; J2405; J2704; J2795; J3010; J7030; J7120

== ENCOUNTER 2022-10-03 14:34 | Outpatient (CLI) | payer MEDICARE, SELFPAY ==
--- NOTE | ~2022-10-03 | XR_ITS ---
EXAM: XR lumbar spine 2-3V DATE: 10/03/2022 15:23 HISTORY: flex/ex/neutral per order, pain right hip, right leg numbnes . COMPARISON: 07/10/2021, images only. FINDINGS: 5 nonrib-bearing lumbar-type vertebral bodies. Pedicles intact. 3 mm retrolisthesis at L3- 4. 2 mm retrolisthesis at L1-2 and L2-3. There is very limited range of motion, which limits ability to detect dynamic listhesis. Vertebral body heights preserved. Multilevel disc space narrowing throug hout the lumbar spine, severe at L3-4. Severe facet hypertrophy and sclerosis in the lower lumbar spi ne. No fracture or dislocation. Incidental note of flowing osteophytosis at the thoracic spine as can be seen with DISH. Upper abdominal suture material. Calcified aortic plaques without evident aneurys m. IMPRESSION: Limited range of motion, study is nondiagnostic with respect to diagnosing dynamic listhe ses. Multilevel grade 1 listheses, detailed above. Multilevel generative disc disease, severe at L3-4 . Multilevel severe facet arthropathy. Reviewed, dictated and finalized at location K. ATIC COACH IMPRESSION: Limited range of motion, study is nondiagnostic with respect to adam gnosing dynamic listheses. Multilevel grade 1 listheses, detailed above. Multil evel generative disc disease, severe at L3-4. Multilevel severe facet arthropat hy.
== END 2022-10-03 14:35 | disposition home or self-care (01) ==
PROVIDERS: Visit Provider Physical Medicine & Rehabilitation
DX: M43.06 Spondylolysis, lumbar region (principal); M51.36 Other intervertebral disc degeneration, lumbar region
CPT/HCPCS: 72100

== ENCOUNTER 2022-10-10 09:13 | Emergency (ER) | payer MEDICARE, SELFPAY ==
[2022-10-10] VITALS (20 sets, daily range): BP systolic 136–167; BP diastolic 80–89; PULSE 94–109; RESP 17–27; TEMP 36.6–38.8; O2SAT 91–97
--- NOTE | ~2022-10-10 | XR_ITS ---
XR chest 2V 10/10/2022 10:05 Indication: Shortness of breath Procedure: AP upright view of the chest Comparison: No prior studies for comparison. Findings: There are infiltrates of the left mid and lower lung. Borderline heart size. No significant effusion. No pneumothorax. No acute osseous abnormality. Impression: 1: Infiltrates of the left mid and lower lung, suspicious for pneumonia. Reviewed, dictated and finalized at location B. PING AND RECEIVING SPECIALIST Impression: 1: Infiltrates of the left mid and lower lung, suspicious for pneumonia.
--- NOTE | ~2022-10-10 | CT_ITS ---
EXAMINATION: CTA chest PE protocol DATE: 10/10/2022 12:20 INDICATION: COVID. Dyspnea. TECHNIQUE: Computed tomography (CT) pulmonary angiogram of the chest was performed with 100 mL Omnipa que-350 intravenous contrast. Additional 3D reconstructions utilizing coronal maximum intensity proje ction (MIP) were performed. Automated exposure control and iterative reconstruction technique were em ployed. The dose-length product was 833.12 mGy-cm. COMPARISON: None FINDINGS: Good but suboptimal contrast opacification of the pulmonary arteries. There is mild streak artifact f rom dense contrast in the superior vena cava and right atrium. Mild to moderate scattered respiratory motion artifact. Together this decreases sensitivity in many of the smaller subsegmental pulmonary a rteries. No pulmonary embolism identified. Centrilobular nodules and groundglass opacities throughout the left upper lobe and lingula and to lesser degree in primarily the basilar segments of the left l ower lobe with appearance most suspicious for a community-acquired pneumonia. There are dependent lazarus undglass opacities in the bilateral lower lobes with surrounding a few small more lucent regions of a ir trapping most consistent with passive atelectasis. No significant septal line thickening to sugges t pulmonary edema. Borderline heart size. Atherosclerotic coronary artery calcification. Thoracic aor ta is normal in caliber with no dissection. No pathologically enlarged thoracic lymphadenopathy. A fe w small metallic foreign bodies likely surgical clips situated between the gallbladder, right kidney and caudal tip of the right hepatic lobe There are bridging osteophytes at multiple levels in the spi ne, consistent with diffuse idiopathic skeletal hyperostosis (DISH). IMPRESSION: 1. No pulmonary embolism. Sensitivity decreased in many of the smaller subsegmental pulmonary arterie s due primarily to mild to moderate respiratory motion artifact. 2. Airspace opacities in the left upper lobe, lingula and to lesser degree left lower lobe consistent with pneumonia. The unilateral and centrilobular distribution would favor typical community-acquired pneumonia or less likely aspiration over COVID pneumonia. 2. Borderline heart size. Reviewed, dictated and finalized at location A. MBLY LINE DRIVER IMPRESSION: 1. No pulmonary embolism. Sensitivity decreased in many of the smaller subsegme ntal pulmonary arteries due primarily to mild to moderate respiratory motion ar tifact. 2. Airspace opacities in the left upper lobe, lingula and to lesser degree left lower lobe consistent with pneumonia. The unilateral and centrilobular distrib ution would favor typical community-acquired pneumonia or less likely aspiratio n over COVID pneumonia. 2. Borderline heart size.
--- NOTE | 2022-10-10 09:21 | ECG_ITS ---
Measurements Intervals [place] Rate: 106 P: -3 WI: 188 QRS: -28 QRSD: 90 T: 10 QT: 310 QTc: 412 Interpretive Statements SINUS TACHYCARDIA BORDERLINE LEFT AXIS DEVIATION [QRS AXIS < -20] MINIMAL ST DEPRESSION [0.025+ mV ST DEPRESSION] ABNORMAL RHYTHM ECG COMPARED TO ECG 10/28/2020 14:44:09 SINUS TACHYCARDIA NOW PRESENT Electronically Signed On 10-10-2022 15:01:38 TRAIN ATTENDANT by Ranjit Maldonado M.D.
[2022-10-10 10:04] LABS: Alanine Aminotransferase 24 U/L (6-50); Albumin Level 4.6 g/dL (3.5-5.1); Alkaline Phosphatase 67 U/L (38-126); Anion Gap 7 mmol/L (8-16); Aspartate Amino Transferase 34 U/L (17-59); Bilirubin,Total 0.8 mg/dL (0.2-1.3); Blood Urea Nitrogen 3 mg/dL (9-20); Calcium 8.5 mg/dL (8.4-10.2); Carbon Dioxide 27 mmol/L (22-30); Chloride 91 mmol/L (98-107); Estimated CRCL calculation 108 ml/min; Estimated Glomerular Filt Rate > 60; Glucose 103 mg/dL (65-110); Potassium 3.9 mmol/L (3.4-5.0); Sodium 125 mmol/L (137-145)
[2022-10-10 10:07] LABS: Basophils Percent Auto 0.5 % (0.2-1.2); Eosinophils Percent Auto 0.5 % (0-4.4); Hematocrit 40.9 % (42.0-52.0); Immature Granulocyte Absolute 0.09 K/mm3 (0.00-0.031); Immature Granulocyte Percent A 1.1 % (0-0.5); Lymphocytes Absolute Auto 0.43 K/mm3 (0.9-3.2); Lymphocytes Percent Auto 5.3 % (18.3-44.2); Mean Corpuscular HGB Conc 34.2 g/dl (32-36); Mean Corpuscular Hemoglobin 33.9 pg (26-34); Mean Platelet Volume 8.7 fl (7.4-10.4); Monocytes Absolute Auto 0.3 K/mm3 (0.1-0.6); Monocytes Percent Auto 3.7 % (2.6-8.5); Neutrophils Absolute Auto 7.2 K/mm3 (1.3-6.7); Neutrophils Percent Auto 88.9 % (45.5-73.1); Platelet Count Result 191 k/mm3 (150-375); Red Blood Count 4.13 M/mm3 (4.6-6.20); Red Cell Distribution Width 12.1 % (11.5-14.5); White Blood Count 8.1 K/mm3 (4.5-10.0)
[2022-10-10 10:31] LABS: Influenza A QL RT-PCR Negative (Negative); Influenza B QL RT-PCR Negative (Negative); SARS-CoV-2 RNA PCR Positive
--- NOTE | 2022-10-10 10:48 | ED.SOB ---
HPI - SOB/Dyspnea General Chief Complaint: Shortness of Breath/Dyspnea Stated Complaint: SOB Time Seen by Provider: 10/10/22 10:44 Source: patient Mode of arrival: EMS Limitations: no limitations History of Present Illness HPI Narrative: Patient is a 67-year-old male with a history of hypertension, history of colon cancer, presenting to the emergency department for evaluation of shortness of breath. Patient states that he awakened this morning and has had increasing shortness of breath throughout the morning. Patient denies cough, he does report fever. He denies myalgias. He denies chest pain or pleuritic pain. He denies hemoptysis. He denies abdominal pain. Patient states his tested positive for COVID over the weekend. He states that he has never tested positive before. He states that in 2019 he had 2 days of loss of sense of taste and smell that quickly resolved. He has never been hospitalized for COVID. He is vaccinated. He denies leg swelling or calf pain. He denies nausea, vomiting or diarrhea. Patient reports his dyspnea improved once he was in the ambulance and received a breathing treatment. He denies any wheezing or history of asthma. He does not smoke. Related Data Home Medications Medication Instructions Recorded Confirmed multivitamin 1 tablet PO DAILY 10/15/19 03/30/22 meloxicam 15 mg tablet (Mobic) 15 mg PO DAILY 12/28/19 03/30/22 lisinopril 20 mg tablet 20 mg PO DAILY 01/14/20 03/30/22 carvedilol 12.5 mg tablet 12.5 mg PO BID 12/05/20 03/30/22 acetaminophen 300 mg-codeine 30 mg 1 tablet PO Q8H PRN 03/29/22 03/30/22 tablet Allergies Allergy/AdvReac Type Severity Reaction Status Date / Time No Known Allergies Allergy Verified 03/29/22 14:25 Review of Systems Review of Systems: CONSTITUTIONAL: Denies fever, chills, or sweats. EYES: Denies visual changes, redness, or discharge. ENT: Denies rhinorrhea, congestion, sore throat, or otalgia. CARDIOVASCULAR: Denies chest pain, palpitations, or edema. RESPIRATORY: Denies cough, reports dyspnea GASTROINTESTINAL: Denies abdominal pain, nausea, vomiting, or diarrhea. GENITOURINARY: Denies dysuria or hematuria. SKIN: Denies rash or itching. MUSCULOSKELETAL: Denies back pain, joint pain, or myalgia. NEUROLOGIC: Denies headache, numbness, or weakness. . [facility] Past Medical History Medical History Anxiety Colon cancer COLON RESECTION 2008 HTN (hypertension) Osteoarthritis of both knees Surgical History Surgical History History of arthroplasty of left knee (~01/11/20) Family History Family History Other Colon cancer Mother Hypertension Social History Social History Smoking status: Never smoker Second hand tobacco smoke exposure: Yes (father) Alcohol intake: current Drinks per week: 84 Alcohol use details: BEER Substance use: never Other substance usage details: 12-14 beers every evening. Last use: 01/13/2020 Living arrangements: with family Additional living arrangements comments: Gender identity (if verbalized by the patient): Male Sexual Orientation (if Verbalized by the Patient): Straight or Heterosexual Spiritual care concerns: No Exam Narrative: GENERAL: Awake, alert, conversant HEAD: Normocephalic, atraumatic. EYES: PERRLA and EOMI. ENT: Nares clear, no rhinorrhea or epistaxis. Mucous membranes moist. NECK: Supple. CHEST: No respiratory distress, mildly coarse breath sounds bilaterally, breathing even and non labored HEART: Tachycardic rate, sinus rhythm ABDOMEN:Non distended, non tender EXTREMITIES: Normal range of motion. No edema. SKIN: Warm, dry, no rash. NEURO:No focal deficits. Alert and oriented x3 Course Vital Signs Vital signs: Vital Signs Temperature 38.8
--- NOTE | 2022-10-10 11:08 | PC.NURSE ---
Patient's updated on patient's condition after patient's approval.
[2022-10-10] MEDS: ACETAMINOPHEN 500 MG TABLET 1000 MG PO (11:43)
[2022-10-10] MEDS: SODIUM CHLORIDE 0.9% IV 500 ML 999 ML IV CONT (11:45)
[2022-10-10] MEDS: LORazepam INJ (*CRX) 2 MG/ML VIAL 0.5 MG IV PUSH (12:05)
[2022-10-10 12:29] LABS: Lactic Acid Reflex 1.5 mmol/L (0.7-2.0)
[2022-10-10 12:40] LABS: Troponin I < 0.012 ng/mL (0.000-0.034)
--- NOTE | 2022-10-10 14:45 | PC.NURSE ---
Patient ambulated with pulse ox and oxygen saturation remained at 95% or higher. Dr. Gamboa made aware.
--- NOTE | 2022-10-10 15:17 | PC.NURSE ---
Prescriptions called into [facility] as requested. aware.
== END 2022-10-10 15:21 | disposition home or self-care (01) ==
PROVIDERS: Emergency Provider Emergency Medicine
DX: U07.1 COVID-19 (principal); J18.9 Pneumonia, unspecified organism; E87.1 Hypo-osmolality and hyponatremia; R00.0 Tachycardia, unspecified; F41.9 Anxiety disorder, unspecified; I10 Essential (primary) hypertension; M19.90 Unspecified osteoarthritis, unspecified site; Z85.038 Personal history of other malignant neoplasm of large intestine
CPT/HCPCS: 36415; 71046; 71275; 80053; 83605; 84484; 85025; 87040; 87636; 93005; 96365; 96367; 96375; 99284; A9270; J0456; J0696; J2060; J7040; Q9967

== ENCOUNTER 2024-03-19 17:35 | Inpatient (IN) | payer MEDICARE, SELFPAY ==
[2024-03-19] VITALS (7 sets, daily range): BP systolic 165–186; BP diastolic 79–103; PULSE 84–108; RESP 15–19; TEMP 36.3; O2SAT 95–100
--- NOTE | ~2024-03-19 | XR_ITS ---
EXAMINATION: XR chest 2V DATE: 03/19/2024 21:59 INDICATION: Profuse vomiting TECHNIQUE: frontal and lateral views of the chest were obtained. COMPARISON: Chest radiograph dated 10/10/22 FINDINGS: The lungs are clear with no focal airspace opacities, pulmonary edema, pleural effusion or pneumothor ax. The cardiomediastinal silhouette is within normal limits for AP technique. Atherosclerotic aorta. There are bridging osteophytes at multiple levels consistent with diffuse idiopathic skeletal hypero stosis (DISH). IMPRESSION: 1. No acute cardiopulmonary disease. Reviewed, dictated and finalized at location A.
--- NOTE | ~2024-03-19 | CT_ITS ---
EXAMINATION: CT abdomen pelvis w con DATE: 03/19/2024 20:12 INDICATION: Intractable nausea and vomiting TECHNIQUE: Computed tomography (CT) of the abdomen and pelvis was performed with 100 mL Omnipaque-350 intravenous contrast. Automated exposure control and iterative reconstruction technique were employe d. The dose-length product was 818.48 mGy-cm. COMPARISON: None FINDINGS: Bibasilar atelectasis. Heart size is normal. Atherosclerotic coronary artery calcification. No perica rdial or pleural effusion. There is fluid in the distal esophagus. Gallbladder, liver, spleen, pancre as, bilateral adrenal glands and kidneys are normal. Bladder is normal. Prostatomegaly measuring 4.3 x 3.8 cm. Postoperative change of prior right hemicolectomy with ileocolic anastomosis in the right a bdomen. No bowel obstruction. Small fat-containing right inguinal hernia. No free intraperitoneal gas or fluid. No pathologically enlarged abdominal or pelvic lymphadenopathy. There is calcified atheros clerosis of the aorta and many of the other arteries. Mild lumbar levocurvature with severe spondylos is. IMPRESSION: 1. Fluid in the distal esophagus which could be due to reflux or reported vomiting. No other acute in tra-abdominal/pelvic process. 2. Small fat-containing right inguinal hernia. Reviewed, dictated and finalized at location A. IMPRESSION: 1. Fluid in the distal esophagus which could be due to reflux or reported vomit ing. No other acute intra-abdominal/pelvic process. 2. Small fat-containing right inguinal hernia.
--- NOTE | 2024-03-19 17:52 | ED.NAVMDI ---
HPI - Nausea/Vomiting/Diarrhea General Chief complaint: Nausea/Vomiting/Diarrhea <GO Sebastian Last Filed: 03/19/24 17:52> Stated complaint: VOMITING <GO Sebastian Last Filed: 03/19/24 17:52> Time Seen by Provider: 03/19/24 18:28 <GO Sebastian Last Filed: 03/19/24 17:52> Focused HPI: 68-year-old male presents to emergency department for nausea and vomiting that started last night after eating a pork sandwich at a restaurant. States he is concerned he has proved poisoning. He has been unable to keep down food or fluids today secondary to vomiting. He denies abdominal pain, fever, dysuria or hematuria. Denies recent sick contacts. GENERAL: Well-appearing, well-nourished, and in no acute distress. HEAD: Normocephalic, atraumatic. CHEST: Clear to auscultation. ?No respiratory distress. HEART: Regular rate and rhythm.? NEURO: ?Alert and oriented x3. Patient screened in triage and initial orders placed.? ?Additional care and disposition to be based upon?diagnostic testing and treatment. <GO Sebastian Last Filed: 03/19/24 17:52> Focused HPI: 68-year-old male presents to emergency department for nausea and vomiting that started last night after eating a pork sandwich at a restaurant. States he is concerned he has proved poisoning. He has been unable to keep down food or fluids today secondary to vomiting. He denies abdominal pain, fever, dysuria or hematuria. Denies recent sick contacts. GENERAL: Well-appearing, well-nourished, and in no acute distress. HEAD: Normocephalic, atraumatic. CHEST: Clear to auscultation. ?No respiratory distress. HEART: Regular rate and rhythm.? NEURO: ?Alert and oriented x3. Patient screened in triage and initial orders placed.? ?Additional care and disposition to be based upon?diagnostic testing and treatment. <GO Mata Last Filed: 03/20/24 03:08> Source: patient <GO Mata Last Filed: 03/20/24 03:08> Mode of arrival: ambulatory <GO Maat Last Filed: 03/20/24 03:08> Limitations: no limitations <GO Mata Last Filed: 03/20/24 03:08> History of Present Illness HPI Narrative: Agree with above HPI. Vomiting began around 1:00 a.m. Does still feel nauseous. Denies abdominal pain, diarrhea, constipation, cough or cold sx's. Last bowel movement was this morning. Denies fevers. No other family members with similar symptoms. Patient does also report having a wound to his left lateral ankle. States it has been there for several months, started as a small scab. Hx colon CA. Is a daily drinker. <GO Mata Last Filed: 03/20/24 03:08> Related Data Home medications: Home Medications Medication Instructions Recorded Confirmed multivitamin 1 tablet PO DAILY 10/15/19 03/20/24 lisinopril 20 mg tablet 20 mg PO DAILY 01/14/20 03/20/24 carvedilol 12.5 mg tablet 12.5 mg PO BID 12/05/20 03/20/24 <GO Sebastian Last Filed: 03/19/24 17:52> Allergies/Adverse reactions: Allergies Allergy/AdvReac Type Severity Reaction Status Date / Time No Known Allergies Allergy Verified 03/20/24 00:49 <GO Sebastian Last Filed: 03/19/24 17:52> Review of Systems Review of Systems: CONSTITUTIONAL: Denies fever, chills, or sweats. CARDIOVASCULAR: Denies chest pain, palpitations, or edema. RESPIRATORY: Denies cough or dyspnea. GASTROINTESTINAL: See HPI. GENITOURINARY: Denies dysuria or hematuria. SKIN: See HPI <GO Mata Last Filed: 03/20/24 03:08> All systems reviewed & are unremarkable except as noted in HPI and below <GO Mata Last Filed: 03/20/24 03:08> PMFSH Past Medical History Medical History: Medical History Anxiety Colon cancer (2008) Status post chemotherapy and s
[2024-03-19 18:09] LABS: Basophils Percent Auto 0.3 % (0.2-1.2); Eosinophils Absolute Auto 0.1 K/mm3 (0-0.3); Eosinophils Percent Auto 0.8 % (0-4.4); Hematocrit 46.3 % (42.0-52.0); Hemoglobin 15.9 g/dL (14.0-18.0); Immature Granulocyte Absolute 0.05 K/mm3 (0.00-0.031); Immature Granulocyte Percent A 0.5 % (0-0.5); Lymphocytes Absolute Auto 0.98 K/mm3 (0.9-3.2); Lymphocytes Percent Auto 9.7 % (18.3-44.2); Mean Corpuscular HGB Conc 34.3 g/dl (32-36); Mean Corpuscular Hemoglobin 33.4 pg (26-34); Mean Corpuscular Volume 97.3 fl (80-100); Mean Platelet Volume 8.6 fl (7.4-10.4); Monocytes Absolute Auto 0.6 K/mm3 (0.1-0.6); Monocytes Percent Auto 5.9 % (2.6-8.5); Neutrophils Absolute Auto 8.4 K/mm3 (1.3-6.7); Neutrophils Percent Auto 82.8 % (45.5-73.1); Platelet Count Result 234 k/mm3 (150-375); Red Blood Count 4.76 M/mm3 (4.6-6.20); Red Cell Distribution Width 12.9 % (11.5-14.5); White Blood Count 10.1 K/mm3 (4.5-10.0)
[2024-03-19 18:18] LABS: Alanine Aminotransferase 24 U/L (6-50); Albumin Level 4.8 g/dL (3.5-5.1); Alkaline Phosphatase 66 U/L (38-126); Anion Gap 11 mmol/L (4-12); Aspartate Amino Transferase 28 U/L (17-59); Bilirubin,Total 1.4 mg/dL (0.2-1.3); Blood Urea Nitrogen 7 mg/dL (9-20); Carbon Dioxide 28 mmol/L (22-30); Chloride 87 mmol/L (98-107); Estimated CRCL calculation 93 ml/min; Estimated Glomerular Filt Rate > 60; Glucose 90 mg/dL (65-110); Lipase 43 U/L (23-300); Potassium 4.1 mmol/L (3.4-5.0); Sodium 126 mmol/L (137-145)
[2024-03-19 18:42] LABS: Magnesium 1.8 mg/dL (1.6-2.3)
[2024-03-19 18:45] LABS: Influenza A QL RT-PCR Negative (Negative); Influenza B QL RT-PCR Negative (Negative); RSV RNA, RT-PCR Negative (Negative); SARS-CoV-2 RNA PCR Negative (Negative)
[2024-03-19] MEDS: SODIUM CHLORIDE 0.9% IV 1,000 ML 999 ML IV CONT ×2 (19:01→19:47)
[2024-03-19] MEDS: ONDANSETRON INJ 4 MG/2 ML VIAL IV PUSH ×2 (19:03→22:00)
[2024-03-19 19:14] LABS: Lactic Acid Reflex 1.6 mmol/L (0.7-2.0)
--- NOTE | 2024-03-19 19:30 | PC.NURSE ---
this rn assumed care of patient. this rn took patient report from CESAR Isaacs.
[2024-03-19] MEDS: diphenhydrAMINE HCl INJ 50 MG/ML VIAL 25 MG IV PUSH (20:28)
[2024-03-19] MEDS: METOCLOPRAMIDE HCL INJ 10 MG/2 ML VIAL IV PUSH (20:28)
[2024-03-19] MEDS: PANTOPRAZOLE SODIUM IV 40 MG VIAL IV PUSH (20:58)
[2024-03-19 21:06] LABS: Add Urine Microscopic? NO; Appearance Urine Clear (Clear); Bilirubin Urine Negative (Negative); Blood Urine Negative (Negative); Color Urine Yellow (Yellow); Glucose Urine UA Negative (Negative); Ketones Urine 1+ mg/dL (Negative); Leukocyte Esterase Ur Negative LEU/UL (Negative); Nitrate Urine Negative (Negative); Protein Urine Negative (Negative); Specific Grav Ur 1.014 (1.001-1.035); Urobilinogen Urine 0.2 mg/dL (<2.0)
--- NOTE | 2024-03-19 21:15 | PC.NURSE ---
pt family member was removing iv catheter upon this rn attempting to PO challenge.
[2024-03-19 21:20] LABS: Glucose Point of Care 73 mg/dl (65-105)
--- NOTE | 2024-03-19 21:21 | PC.NURSE ---
pt attempted po challenge. pt hit call light and stated, I threw up . GO lopez notified.
[2024-03-19] MEDS: DEXTROSE 50% 25 GM/50 ML SYRINGE IV PUSH (22:00)
[2024-03-19] MEDS: SODIUM CHLORIDE 0.9% IV 1,000 ML 125 ML IV CONT (22:01)
--- NOTE | 2024-03-19 22:50 | ECG_ITS ---
Test Date: 2024-03-19 23:19:04 Measurements Intervals [place] Rate: 101 P: 4 MA: 196 QRS: -10 QRSD: 86 T: 0 QT: 335 QTc: 436 Interpretive Statements SINUS TACHYCARDIA CONSIDER PREVIOUS ANTEROSEPTAL INFARCTION NONSPECIFIC T-WAVE ABNORMAL ECG No previous ECG available for comparison Electronically Signed On 03-20-2024 11:25:26 CDT by Jesse Jarrett M.D.
[2024-03-19] MEDS: THIAMINE HCL 200 MG/2 ML VIAL 100 MG IV PUSH (23:12)
[2024-03-19 23:17] LABS: Glucose Point of Care 121 mg/dl (65-105)
[2024-03-19 23:38] LABS: Ethanol < 10 mg/dL (<10)
[2024-03-19] MEDS: SODIUM CHLORIDE 0.9% IV 1,000 ML 100 ML IV CONT (23:41)
[2024-03-20] VITALS (9 sets, daily range): BP systolic 122–158; BP diastolic 64–88; PULSE 78–97; RESP 16–18; TEMP 36.4–37.2; O2SAT 96–98; BMI 29.2
--- NOTE | 2024-03-20 00:39 | ADMGEN ---
This patient, Robert Naylor, was admitted to 3 [facility] Surg Room 323-02. Patient/family oriented to hospital policies and general routines including ID bracelet, bed and alarms, visiting hours, pain management, procedures, bathroom and other care routines, personal items, smoking policy, room service/diet, and visiting hours. Information on how to activate the Rapid Response Team has been discussed. Patient/Family are encouraged to report perceived risks to care and to ask questions if they do not understand what they are told or what they should do.
--- NOTE | 2024-03-20 01:26 | PM.IMHP ---
H&P: HPI History of Present Illness Date/Time: 03/20/24 01:26 Chief Complaint: I think I have food poisoning Narrative: 68-year-old male with a past medical history of essential hypertension, distant history of colon cancer status post bowel resection, and nausea vomiting. Patient reports that his symptoms started when he was in the middle of eating a pulled pork sandwich. He assumed that any had food poisoning from the forks am which. He denies sensation of dysphagia but reports any time that he even takes sips of water he began having vomiting. Cine associated changes in bowel habits. He has not had any hematemesis, coffee-ground emesis hematochezia or melena. Was 2 days ago. He denies any abdominal distension or abdominal pain. He does drink about 6 beers a night and has done so re much daily since he was in his mid 20s. His last drink was just before his onset of vomiting on the . He has been having some coughing since onset of vomiting. He denies any fevers or chills. He has a history of hyponatremia thought to be due to his alcohol use. Sodium on his CMP was 126 which is comparable to prior. His urine demonstrated 1+ ketones. His alcohol level was less than 10. CT of the abdomen pelvis with contrast demonstrated fluid in the distal esophagus which could be due to reflux or reported vomiting no other acute intra-abdominal or pelvic process. Small fat containing right inguinal hernia. Review of Systems Review of Systems: 12 systems were reviewed with pertinent positives and negatives per HPI. Except as documented in the HPI, all other systems were reviewed and are negative. [facility] Past Medical History Medical History (Updated 03/20/24 @ 01:40 by Loretta Nelson DO) Anxiety Colon cancer (2008) Status post chemotherapy and surgical resection. Patient reports he has not had a screening colonoscopy since his colon cancer diagnosis Heavy alcohol consumption HTN (hypertension) Peripheral neuropathy Following lumbar surgery Surgical History Surgical History (Updated 03/20/24 @ 01:40 by Loretta Nelson DO) History of bilateral knee replacement Left December 2019; Right November [address] Eris Jacobs History of laminectomy L4-L5 History of tonsillectomy and adenoidectomy Status post cataract extraction of both eyes with insertion of intraocular lens Family History Family History (Updated 03/20/24 @ 01:41 by Loretta Nelson DO) Mother Hypertension Breast cancer Father , At age 49 COPD (chronic obstructive pulmonary disease) Sibling Drug overdose Social History Social History (Updated 03/20/24 @ 01:45 by Loretta Nelson DO) Social History: Patient lives with his of 46 years. He is retired from the [employer]. 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 He denies any history of tobacco use or illicit substance use. He does drink 6 beers night and has done so since his mid 20s. He and his raised 3 daughters and have 10 grandchildren in 2 great grandchildren. Code status: Full code Surrogate decision maker: Gila () Smoking status: Never smoker Second hand tobacco smoke exposure: Yes (father) Alcohol intake: current Drinks per week: 42 Alcohol use details: BEER Substance use: never Other substance usage details: 12-14 beers every evening. Last use: 01/13/2020 Do You Feel Safe in your Home?: Yes Lack of Transportation: No Lack of Food: Never True Current Housing: I Have Housing Concerned About Future Housing: No Difficulty Paying Gas/Electric Bills: No Difficulty Paying for Meds: No Currently Unemployed: No Education: High School Diploma/GED Difficulty w/ Childcare or Family Care: No Living arrangements: with family Additional living arrangements comments: Gender identity (if verbalized by the patient): Male Sexual Orientation (if Verbalized by the Patient): Straight or Heterose
[2024-03-20 02:25] LABS: Glucose Point of Care 120 mg/dl (65-105)
[2024-03-20 02:28] LABS: Anion Gap 11 mmol/L (4-12); Blood Urea Nitrogen 5 mg/dL (9-20); Calcium 8.2 mg/dL (8.4-10.2); Carbon Dioxide 22 mmol/L (22-30); Chloride 95 mmol/L (98-107); Estimated CRCL calculation 107 ml/min; Estimated Glomerular Filt Rate > 60; Glucose 103 mg/dL (65-110); Potassium 3.5 mmol/L (3.4-5.0); Sodium 128 mmol/L (137-145)
[2024-03-20 03:34] LABS: Hematocrit 43.4 % (42.0-52.0); Hemoglobin 14.9 g/dL (14.0-18.0); Mean Corpuscular HGB Conc 34.3 g/dl (32-36); Mean Corpuscular Hemoglobin 33.6 pg (26-34); Mean Platelet Volume 8.6 fl (7.4-10.4); Platelet Count Result 208 k/mm3 (150-375); Red Blood Count 4.43 M/mm3 (4.6-6.20); White Blood Count 10.5 K/mm3 (4.5-10.0)
[2024-03-20 03:45] LABS: Alanine Aminotransferase 20 U/L (6-50); Alkaline Phosphatase 54 U/L (38-126); Anion Gap 11 mmol/L (4-12); Aspartate Amino Transferase 25 U/L (17-59); Bilirubin,Total 1.2 mg/dL (0.2-1.3); Blood Urea Nitrogen 5 mg/dL (9-20); Calcium 8.3 mg/dL (8.4-10.2); Carbon Dioxide 22 mmol/L (22-30); Chloride 95 mmol/L (98-107); Estimated CRCL calculation 107 ml/min; Estimated Glomerular Filt Rate > 60; Glucose 99 mg/dL (65-110); Potassium 3.6 mmol/L (3.4-5.0); Sodium 128 mmol/L (137-145)
[2024-03-20] MEDS: ONDANSETRON INJ 4 MG/2 ML VIAL IV PUSH (05:20)
[2024-03-20 05:24] LABS: Glucose Point of Care 114 mg/dl (65-105)
[2024-03-20 08:24] LABS: Anion Gap 11 mmol/L (4-12); Blood Urea Nitrogen 4 mg/dL (9-20); Calcium 8.1 mg/dL (8.4-10.2); Carbon Dioxide 22 mmol/L (22-30); Chloride 95 mmol/L (98-107); Estimated CRCL calculation 107 ml/min; Estimated Glomerular Filt Rate > 60; Glucose 103 mg/dL (65-110); Potassium 3.7 mmol/L (3.4-5.0); Sodium 128 mmol/L (137-145)
[2024-03-20] MEDS: THIAMINE HCL 200 MG/2 ML VIAL 100 MG IV PUSH (09:06)
[2024-03-20] MEDS: PANTOPRAZOLE SODIUM IV 40 MG VIAL IV PUSH ×2 (09:10→20:06)
[2024-03-20] MEDS: SODIUM CHLORIDE 0.9% IV 1,000 ML 100 ML IV CONT (09:18)
[2024-03-20 12:00] LABS: Glucose Point of Care 113 mg/dl (65-105)
[2024-03-20] MEDS: LORazepam INJ (*CRX) 2 MG/ML VIAL IV PUSH (16:43)
[2024-03-20 17:50] LABS: Glucose Point of Care 148 mg/dl (65-105)
--- NOTE | 2024-03-20 18:38 | P.PNCROSS_ITS ---
Event Note Event Note Event Note: CIWA score 10. Patient's nausea and vomiting has resolved. 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 No abdominal pain no diarrhea. He wishes to eat. T will try him on a full liquid diet.
[2024-03-20 23:32] LABS: Glucose Point of Care 98 mg/dl (65-105)
[2024-03-21] VITALS: PULSE 83
[2024-03-21 04:00] VITALS: PULSE 78
[2024-03-21 05:01] LABS: Glucose Point of Care 93 mg/dl (65-105)
--- NOTE | 2024-03-21 05:29 | PC.NURSE ---
Pt refusing lab draws. Pt stating, I am going home today and I am done being stuck .
[2024-03-21 06:00] VITALS: BP 124/75; PULSE 92; RESP 20; TEMP 36; O2SAT 97
[2024-03-21 06:58] LABS: Amphetamine Screen Urine Negative (Negative); Barbiturate Screen Urine Negative (Negative); Benzodiazepines Screen Urine Positive (Negative); Cannabinoid Screen Urine Negative (Negative); Cocaine Screen Urine Negative (Negative); Methadone Screen Urine Negative (Negative); Opiate Screen Urine Negative (Negative); Phencyclidine Screen Urine Negative (Negative)
[2024-03-21 07:25] LABS: Alanine Aminotransferase 16 U/L (6-50); Albumin Level 3.5 g/dL (3.5-5.1); Alkaline Phosphatase 47 U/L (38-126); Anion Gap 11 mmol/L (4-12); Aspartate Amino Transferase 26 U/L (17-59); Bilirubin,Total 0.8 mg/dL (0.2-1.3); Blood Urea Nitrogen 6 mg/dL (9-20); Calcium 8.1 mg/dL (8.4-10.2); Carbon Dioxide 23 mmol/L (22-30); Chloride 97 mmol/L (98-107); Estimated CRCL calculation 93 ml/min; Estimated Glomerular Filt Rate > 60; Glucose 91 mg/dL (65-110); Magnesium 1.9 mg/dL (1.6-2.3); Potassium 3.6 mmol/L (3.4-5.0); Sodium 131 mmol/L (137-145)
[2024-03-21 07:41] LABS: Procalcitonin 0.1 ng/mL
[2024-03-21 07:42] LABS: Basophils Percent Auto 0.5 % (0.2-1.2); Eosinophils Absolute Auto 0.1 K/mm3 (0-0.3); Eosinophils Percent Auto 1.4 % (0-4.4); Hematocrit 42.2 % (42.0-52.0); Hemoglobin 13.9 g/dL (14.0-18.0); Immature Granulocyte Absolute 0.03 K/mm3 (0.00-0.031); Immature Granulocyte Percent A 0.5 % (0-0.5); Lymphocytes Percent Auto 12.4 % (18.3-44.2); Mean Corpuscular HGB Conc 32.9 g/dl (32-36); Mean Corpuscular Hemoglobin 33.4 pg (26-34); Mean Corpuscular Volume 101.4 fl (80-100); Mean Platelet Volume 8.8 fl (7.4-10.4); Monocytes Absolute Auto 0.6 K/mm3 (0.1-0.6); Monocytes Percent Auto 9.1 % (2.6-8.5); Neutrophils Absolute Auto 4.9 K/mm3 (1.3-6.7); Neutrophils Percent Auto 76.1 % (45.5-73.1); Platelet Count Result 196 k/mm3 (150-375); Red Blood Count 4.16 M/mm3 (4.6-6.20); Red Cell Distribution Width 13.4 % (11.5-14.5); White Blood Count 6.5 K/mm3 (4.5-10.0)
[2024-03-21 08:00] VITALS: PULSE 88
[2024-03-21] MEDS: THIAMINE HCL 200 MG/2 ML VIAL 100 MG IV PUSH (08:16)
[2024-03-21] MEDS: PANTOPRAZOLE SODIUM IV 40 MG VIAL IV PUSH (08:17)
[2024-03-21 11:46] LABS: Glucose Point of Care 122 mg/dl (65-105)
[2024-03-21 12:00] VITALS: PULSE 81
--- NOTE | 2024-03-21 13:22 | PM.DS ---
DS: Admitting Diagnosis Discharge Date March 21, 2024 Admitting Diagnosis Nausea vomiting DS: Discharge Diagnosis Discharge Diagnosis (1) Dehydration: Code(s): E86.0 - Dehydration Status: Acute (2) Heavy alcohol consumption: Code(s): F10.90 - Alcohol use, unspecified, uncomplicated Status: Acute (3) Hyponatremia: Code(s): E87.1 - Hypo-osmolality and hyponatremia Status: Acute (4) Anxiety: Code(s): F41.9 - Anxiety disorder, unspecified Status: Acute (5) Intractable nausea and vomiting: Code(s): R11.2 - Nausea with vomiting, unspecified Status: Acute DS: Summary Hospital Course Hospital Course: H&P via Loretta Nelson MD 68-year-old male with a past medical history of essential hypertension, distant history of colon cancer status post bowel resection, and nausea vomiting. Patient reports that his symptoms started when he was in the middle of eating a pulled pork sandwich. He assumed that any had food poisoning from the forks am which. He denies sensation of dysphagia but reports any time that he even takes sips of water he began having vomiting. Cine associated changes in bowel habits. He has not had any hematemesis, coffee-ground emesis hematochezia or melena. Was 2 days ago. He denies any abdominal distension or abdominal pain. He does drink about 6 beers a night and has done so re much daily since he was in his mid 20s. His last drink was just before his onset of vomiting on the . He has been having some coughing since onset of vomiting. He denies any fevers or chills. He has a history of hyponatremia thought to be due to his alcohol use. Sodium on his CMP was 126 which is comparable to prior. His urine demonstrated 1+ ketones. His alcohol level was less than 10. CT of the abdomen pelvis with contrast demonstrated fluid in the distal esophagus which could be due to reflux or reported vomiting no other acute intra-abdominal or pelvic process. Small fat containing right inguinal hernia. Plan: Patient has intractable nausea vomiting. Possibly due to food poisoning however would be unusual for food poisoning to have sudden onset with patient actively eating said meal. He could have had other food or exposures. Also I would expect some component of diarrheal illness with food poisoning as well. Will continue Protonix given patient's reported symptoms of intermittent heartburn even prior to onset of symptoms. There may be some component of fluid bolus but patient Tums do not seem to fit with this. Will make patient NPO given that he is still having intractable nausea vomiting at the time of my evaluation. Will Zofran as needed for nausea will provide Phenergan as needed for intractable nausea. Given the patient is NPO will check Accu-Cheks q.6 hours. Provide hypoglycemia protocol if needed. Patient does have tacky mucous membranes and 1+ ketones in his urine. He also has some associated hyponatremia. Patient does have history of heavy alcohol use and does have history of prior hyponatremia on prior labs. Will check repeat sodium level now and in the morning to ensure no rapid fluctuations sodium with fluid resuscitation efforts. Patient does have a history of alcoholism which is likely underlying cause for chronic hyponatremia. Patient has been started on thiamine supplementation which will be continued IV daily. Will provide Ativan 1 mg IV q.4 hours as needed for CIWA scores 8-15 and Ativan 2 mg q.2 hours as needed for CIWA scores greater than 15. Patient's current CIWA score was 5. Once patient is able to tolerate oral intake will add multivitamin and folic acid supplementation. The patient does have a shallow ulceration is left lower extremity he denies prior injury. The area does not appear to be acutely infected. Wound culture was sent from the ER again I am not concerned about acute infection the wound base appears consistent with granulation tissue with ove
== END 2024-03-21 14:00 | disposition home or self-care (01) | DRG 641 ==
LOC: ANHED 23:02 → ANH3MEDSUR 23:45
PROVIDERS: Physician Assistant; Admitting Provider Internal Medicine; Emergency Provider Physician Assistant; Visit Provider General Practice
DX: E87.1 Hypo-osmolality and hyponatremia (principal); L97.329 Non-pressure chronic ulcer of left ankle with unspecified severity; E86.0 Dehydration; F10.20 Alcohol dependence, uncomplicated; Y90.0 Blood alcohol level of less than 20 mg/100 ml; Z20.822 Contact with and (suspected) exposure to COVID-19; I10 Essential (primary) hypertension; G62.89 Other specified polyneuropathies; Z85.038 Personal history of other malignant neoplasm of large intestine; Z96.653 Presence of artificial knee joint, bilateral; Z96.1 Presence of intraocular lens; Z98.42 Cataract extraction status, left eye; Z98.41 Cataract extraction status, right eye
CPT/HCPCS: 36415; 71046; 74177; 80048; 80053; 80307; 81003; 82948; 83605; 83690; 83735; 84145; 85025; 85027; 87070; 87081; 87181; 87205; 87637; 93005; 96361; 96374; 96375; 96376; 99285; G0378; J1200; J2060; J2405; J2470; J2765; J3411; J7030; Q9967

== ENCOUNTER 2024-11-01 20:46 | Inpatient (IN) | payer MEDICARE, SELFPAY ==
--- NOTE | ~2024-11-01 | CT_ITS ---
Noncontrast CT scan of the cervical spine Technique: Multiple contiguous axial [address] images of the cervical spine were obtained and rec onstructed in 2D sagittal and coronal planes on the acquisition scanner. Dose reduction technique was used on this scan by utilizing automated exposure control, adjustment of the mA and/or kV according to patient size. The dose-length product (DLP) was 399.90 mGy-cm. Clinical History: Altered mental status, ptosis right eye Findings: No fractures or dislocations. There is straightening of the normal cervical lordosis. Ther e is advanced degenerative disc narrowing at C4-C5 and C6-C7. There is moderate degenerative distende d at C5-C6. There are scattered moderate to advanced facet joint degenerative changes of the cervical spine. There is bilateral neural foraminal narrowing at C4-C5 with probable mild canal stenosis and underlying disc bulge. There is bilateral neural foraminal narrowing at C5-C6 with mild canal stenosi s. There is bilateral neural foraminal narrowing at C6-C7 with probable moderate canal stenosis.. No prevertebral soft tissue swelling. Impression: No fracture or subluxation of the cervical spine. Extensive degenerative change, as above. Reviewed, dictated and finalized at location . Impression: No fracture or subluxation of the cervical spine. Extensive degenerative change, as above.
--- NOTE | ~2024-11-01 | MR_ITS ---
EXAMINATION: MR brain/brain stem wo con DATE: 11/03/2024 15:07 INDICATION: Right eye ptosis TECHNIQUE: Magnetic resonance imaging (MRI) of the brain and brainstem was performed without intraven ous contrast. Sequences included sagittal and axial T1-weighted SE, axial diffusion-weighted FS SE, a xial T2*-weighted GRE, axial 3D SWAN, axial T2-weighted FLAIR, and axial T2-weighted FSE. Apparent di ffusion coefficient (ADC) maps were created. COMPARISON: 11/01/2024 FINDINGS: There are no areas of restricted diffusion to suggest acute infarction. No intracranial hemorrhage or abnormal intracranial mass lesion. A few scattered tiny foci of nonspecific increased T2-weighted si gnal intensity in the cerebral white matter, predominantly involving the deep and periventricular whi te matter which is within normal limits for age and likely sequela of chronic small vessel ischemic d isease. There are no intraparenchymal signal abnormalities seen on the other pulse sequences. The king tricles are symmetric and normal in size. There are no abnormal extra-axial fluid collections. Flow v oids are seen in the cerebral arteries on the T2-weighted sequences consistent with their expected pa tency. The left vertebral artery is patent. There is mucosal thickening in the right maxillary sinus. Cavernous sinus is unremarkable. Changes of bilateral intraocular lens replacement. Visualized orbi ts and soft tissues are otherwise unremarkable. IMPRESSION: 1. Normal aging brain. No acute intracranial process. Reviewed, dictated and finalized at location A.
--- NOTE | ~2024-11-01 | XR_ITS ---
Portable chest x-ray Comparison: 03/19/2024 Clinical History: Altered mental status Findings: Lungs are clear, without focal consolidation or pleural effusion. Cardiomediastinal silho uette is stable. Bones and soft tissues are unremarkable. Impression: Clear lungs. Cardiomegaly. Reviewed, dictated and finalized at location M. Impression: Clear lungs. Cardiomegaly.
--- NOTE | ~2024-11-01 | CT_ITS ---
CT ANGIOGRAM NECK AND HEAD History: Altered mental status, right ptosis. Technique: Axial noncontrast imaging of the brain was performed. Serial spiral axial images through randy lui head and neck were then obtained during arterial phase IV injection of 100 cc of Omnipaque 350. 3- D postprocessing and MIP images were then reconstructed on the remote workstation. Dose reduction neelam hnique was used on this scan by utilizing automated exposure control and iterative reconstruction neelam hnique. The dose-length product (DLP) was 1954.83 mGy-cm. CTA neck findings: Bilateral vertebral arteries are patent. There is diffuse, marked hypoplasia of randy lui right vertebral artery. Bilateral common carotid, internal carotid, and external carotid arteries are patent. No significant stenosis or large vessel occlusion despite focal calcified plaques at the bifurcation regions. No aneurysm. The proximal right internal carotid artery demonstrates 0% stenosis relative to the normal distal artery lumen diameter. The proximal left internal carotid artery demon strates 0% stenosis relative to the normal distal artery lumen diameter. CTA head findings: Distal vertebral arteries, basilar artery, and posterior cerebral arteries are pat ent. Distal internal carotid arteries, middle cerebral arteries, and anterior cerebral arteries are p atent. No stenosis or large vessel occlusion. No aneurysm. Axial noncontrast imaging of the brain is unremarkable. No acute infarct, intracranial hemorrhage, ma ss lesion seen. No mass effect or midline shift. Segovia-white differentiation intact. Ventricles and sahu barachnoid spaces are unremarkable. Paranasal sinuses and mastoid air cells are essentially clear, as sepideh from mild mucosal thickening at the floor the right maxillary sinus. Calvarium intact. Impression: No significant abnormality. Reviewed, dictated and finalized at location . Impression: No significant abnormality.
--- NOTE | ~2024-11-01 | MR_ITS ---
EXAMINATION: MR orbits face neck wo/w con DATE: 11/04/2024 13:03 INDICATION: Right eye ptosis TECHNIQUE: Magnetic resonance imaging (MRI) of the brain and brainstem was performed without and with 20 mL ProHance intravenous contrast. Sequences included sagittal and axial T1-weighted SE, axial dif fusion-weighted FS EPI, axial 3D SWAN, axial T2-weighted FLAIR Propeller, and axial T2-weighted Prope ller. Small gihcr-cj-nkkp sequences of the orbits included coronal and axial T2-weighted FS FSE and T 1-weighted FSE. Postcontrast sequences included axial T1-weighted SE and small seqoh-va-tpznn axial a nd coronal T1-weighted FS FSE. Apparent diffusion coefficient (ADC) maps were created. COMPARISON: Brain MR dated 11/03/2024 FINDINGS: There are no areas of restricted diffusion to suggest acute infarction. No intracranial hemorrhage or abnormal intracranial mass lesion. There are a few small scattered foci of nonspecific increased T2- weighted signal intensity in the cerebral white matter, predominantly involving the deep and perivent ricular white matter which is within normal limits for age and likely sequela of chronic small vessel ischemic disease. There are no intraparenchymal signal abnormalities seen on the other pulse sequenc es. The ventricles are symmetric and normal in size. There are no abnormal extra-axial fluid collecti ons. Flow voids are seen in the cerebral arteries on the T2-weighted sequences consistent with their expected patency. Cavernous sinus is unremarkable. Left vertebral artery is dominant. Moderate mucosa l thickening right maxillary sinus and mild mucosal thickening the left maxillary and bilateral ethmo id sinuses. Changes of bilateral intraocular lens replacement. Visualized orbits and soft tissues ar e otherwise unremarkable. There are no areas of abnormal enhancement on the post contrast images. IMPRESSION: 1. Normal aging brain. No acute intracranial process or abnormally enhancing brain lesions. Reviewed, dictated and finalized at location A. IMPRESSION: 1. Normal aging brain. No acute intracranial process or abnormally enhancing br ain lesions.
[2024-11-01 20:48] VITALS: BP 164/80; PULSE 56; RESP 15; TEMP 37.2; O2SAT 100
--- NOTE | 2024-11-01 20:53 | ECG_ITS ---
Test Date: 2024-11-01 20:57:18 Measurements Intervals [place] Rate: 58 P: 50 KS: 236 QRS: -4 QRSD: 90 T: 2 QT: 409 QTc: 402 Interpretive Statements Uninterpretable atrial rhythm due to significant baseline. Electronically Signed On 11-02-2024 15:14:56 CDT by Karthik Church M.D.
--- NOTE | 2024-11-01 21:08 | ED.AMS ---
HPI - Altered Mental Status General Chief Complaint: Altered Mental Status Stated Complaint: weakness, ams Time Seen by Provider: 11/01/24 21:07 Source: patient and family Mode of arrival: EMS History of Present Illness HPI narrative: Patient presents with concern for altered mental status/confusion. The time course is initially unclear as it seems to have been initially presented as acute however patient's daughter later states that this has been ongoing for approximately 1 year. The acute change was that he developed right eyelid ptosis approximately 3 days ago and his confusion seems to be worsening since then as well as associated with generalized weakness and decreased appetite. Patient denies any nausea, vomiting, diarrhea, cough, fevers. Family notes that he states that he is always cold however he denies any chills . No constipation. No headaches or seizures. Point of care glucose 110 mg/dL. He has had difficulty walking due to paresthesias/neuropathy in bilateral feet. He attributes this to prior back surgery. Initially denied any medication changes although then learned that he has been taking an [id number] medication for mood and stress for the past year because he has been more anxious and with difficulty sleeping; unknown with this medication is exactly. Denies any IV recreational drug use. Does not smoke. Drinks approximately 2 beers per week. Alert and oriented x4 at baseline. His mild tremulousness is chronic. No slurred speech has been appreciated by family or patient. No history of diabetes mellitus. He denies any chest pain or shortness of breath. No injury or illness in general or to the eye. Related Data Home Medications ?Medication ?Instructions ?Recorded ?Confirmed ?Last Taken ?Type multivitamin 1 tablet PO DAILY 10/15/19 11/02/24 03/18/24 History lisinopril 20 mg tablet 20 mg PO DAILY 01/14/20 11/02/24 03/18/24 History carvedilol 12.5 mg tablet 12.5 mg PO BID 12/05/20 11/02/24 03/18/24 History diazepam 5 mg tablet 5 mg PO TID PRN anxiety 11/02/24 11/02/24 Unknown History diclofenac sodium 75 mg 75 mg PO Q12H 11/02/24 11/02/24 Unknown History tablet,delayed release tadalafil 20 mg tablet 20 mg PO DAILY 11/02/24 11/02/24 Unknown History Allergies Allergy/AdvReac Type Severity Reaction Status Date / Time No Known Allergies Allergy Verified 03/20/24 00:49 [facility] Past Medical History Medical History (Updated 11/02/24 @ 04:43 by Loretta Nelson DO) Chronic hyponatremia Heavy alcohol consumption Peripheral neuropathy Following lumbar surgery Anxiety Colon cancer (2008) Status post chemotherapy and surgical resection. Patient reports he has not had a screening colonoscopy since his colon cancer diagnosis HTN (hypertension) Surgical History Surgical History History of tonsillectomy and adenoidectomy Status post cataract extraction of both eyes with insertion of intraocular lens History of laminectomy L4-L5 History of bilateral knee replacement Left December 2019; Right November [address] Eris Jacobs Family History Family History Mother Hypertension Breast cancer Father , At age 49 COPD (chronic obstructive pulmonary disease) Sibling Drug overdose Social History Social History Social History: Patient lives with his of 46 years. He is retired from the [employer]. 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 He denies any history of tobacco use or illicit substance use. He does drink 6 beers night and has done so since his mid 20s. He and his raised 3 daughters and have 10 grandchildren in 2 great grandchildren. Code status: Full code Surrogate decision maker: Gila () Smoking status: Never smoker Second hand tobacco smoke exposure: Yes (father) Alcohol intake: current Drinks per week: 28 Alcohol use details: BEER Substance use: never Other substance usage details: 12-14 beers every evening. Last use: 01/13/2020 Do You Feel Safe in your Home?: Yes Lack of Transportation: No Lack of Food: Never True Current Housing: I Have Housing Concerned About Future Housing: No Difficulty Paying Gas/Electric Bills: No Difficulty Paying for Meds: No Currently Unemployed: No Education: High School Diploma/GED Difficulty w/ Childcare or Family Care: No Living arrangements: with family Additional living arrangements comments: Gender identity (if verbalized by the patient): Male Sexual Orientation (if Verbalized by the Patient): Straight or Heterosexual Spiritual care concerns: No Exam Narrative: GENERAL: Well-appearing, well-nourished, and in no acute distress. HEAD: Normocephalic, atraumatic. EYES: Non injected, non icteric. Right eyelid ptosis. Grossly symmetric without obvious malalignment (i.e. no down and out phenomenon or otherwise). Extraocular movements intact without palsy. No visual loss on visual field examination patient is able to forcibly elevate right eyelid. ENT: Nares clear, no rhinorrhea or epistaxis. Bilateral TMs visualized and pearly juarez. No vesicles. NECK: Supple. CHEST: Speaking in full sentences. No respiratory distress. HEART: Bradycardic rate and rhythm. . ABDOMEN: Soft, nondistended. EXTREMITIES: Normal range of motion. No lower extremity edema. SKIN: Warm, dry, no rash. NEURO: No focal deficits. Alert and oriented x3. Answering questions appropriately and following commands. Bilateral brow furrowing. Bilateral eyes close tightly. Normal symmetry of face without facial palsy/loss of nasolabial fold. No motor drift in extremities x4. Patient has a mild bilateral upper extremity tremor however without ataxia on [id number] bilaterally. Sensation intact throughout. Speaks clearly without aphasia or dysarthria. No extinction abnormality. PSYCH: Flat affect. Course Vital Signs Vital signs: Vital Signs Temperature 98.9 F 11/01/24 20:48 Pulse Rate 56 L 11/01/24 20:48 Respiratory Rate 15 11/01/24 20:48 Blood Pressure 164/80 H 11/01/24 20:48 Pulse Oximetry 100 11/01/24 20:48 Oxygen Delivery Room Air 11/01/24 20:48 Temperature 98.6 F 11/02/24 21:20 Pulse Rate 58 L 11/03/24 03:48 Respiratory Rate 18 11/02/24 21:20 Blood Pressure 154/90 H 11/02/24 21:20 Pulse Oximetry 98 11/02/24 21:20 Oxygen Delivery Room Air 11/02/24 09:46 MDM - Altered Mental Status MDM Narrative Medical decision making narrative: Patient presents with concern for altered mental status. It was initially described as acute however it appears that he has had some ongoing confusion for the past 1 year however seems to have been worsening for the past several days. In addition his last known well was 3 days ago and it was at this time that he developed right eyelid ptosis. He endorses decreased appetite and generalized weakness. In the emergency department he is afebrile vital signs notable for mild bradycardia as well as hypertension. NIHSS = 0 Patient is hyponatremic with a sodium of 129 although this does appear to be chronic and otherwise stable. Given no significant delta, less likely that this is primary etiology although might be contributing/exacerbating. Mild hypomagnesemia, will replete orally. Urinalysis with benzodiazepines; last fill of diazepam 5 mg, 45 tablets occurred in May of 2024. BNP mildly elevated but not to a degree to suggest heart failure based on the reference range of the assay for patient's age. Imaging unremarkable for acute process. Patient to be admitted for further workup to include MRI. Discussed with patient and family who are in agreement. Code status full code (though patient seems indifferent at first, do whatever you want to me. ) Patient does note he has hardware in bilateral knees due to replacement surgery however this appears to have been done in or prior to 2020 and he appears to have had an MRI performed in 2021 ordered by Reynaldo thus high suspicion that this is MRI compatable. Discussed with neurologist Dr Steinberg who concurs. Discussed with hospitalist Dr Nelson who accepts admission. Telemetery floor ok rather than IMU given 3 days duration and not progressing. Differential Diagnosis Differential diagnosis: Likely alcoholic intoxication, altered mental status, delirium, dementia, hypoglycemia, hyponatremia, subarachnoid hemorrhage, sepsis and other (SIADH; considered Alonso's palsy; UMN versus LMN disorders; considered myasthenia gravis; CVA/TIA; small lesions/masses/malignancy) Lab Data Attestation: I reviewed the patient's lab results. Lab results narrative: Mild normocytic anemia, stable from previous Normal troponin. TSH normal. 11/01/24 20:58 11/02/24 07:47 Labs: Lab Results 11/01/24 11/01/24 11/01/24 Range/Units 20:58 21:02 22:42 WBC 5.3 (4.5-10.0) K/mm3 RBC 4.51 L (4.6-6.20) M/mm3 Hgb 13.8 L (14.0-18.0) g/dL Hct 41.2 L (42.0-52.0) % MCV 91.4 (80-100) fl MCH 30.6 (26-34) pg MCHC 33.5 (32-36) g/dl RDW 12.4 (11.5-14.5) % Plt Count 268 (150-375) k/mm3 MPV 8.6 (7.4-10.4) fl Immature Gran % (Auto) 0.0 (0-0.5) % Neut % (Auto) 60.1 (45.5-73.1) % Lymph % (Auto) 21.6 (18.3-44.2) % Elliott % (Auto) 12.4 H (2.6-8.5) % Eos % (Auto) 5.3 H (0-4.4) % Baso % (Auto) 0.6 (0.2-1.2) % Lymph # (Auto) 1.15 (0.9-3.2) K/mm3 Elliott # (Auto) 0.7 H (0.1-0.6) K/mm3 Eos # (Auto) 0.3 (0-0.3) K/mm3 Baso # (Auto) 0.0 (0.0-0.1) K/mm3 Abs Immat Gran (auto) 0.00 (0.00-0.031) K/mm3 Absolute Neuts (auto) 3.2 (1.3-6.7) K/mm3 Absolute Nucleated RBC 0.000 (0.0-0.012) K/mm3 Nucleated RBC % 0.0 (0.0-0.2) % PT 14.5 (11.1-14.7) Seconds INR 1.1 APTT 27.6 (22.3-36.8) Seconds Sodium 129 L (137-145) mmol/L Potassium 4.7 (3.4-5.0) mmol/L Chloride 94 L (98-107) mmol/L Carbon Dioxide 25 (22-30) mmol/L Anion Gap 10 (4-12) mmol/L BUN 15 D (9-20) mg/dL Creatinine 0.97 (0.7-1.3) mg/dL Estim Creat Clear Calc 68 ml/min Estimated GFR > 60 (59 - ) Glucose 99 (65-110) mg/dL Lactic Acid 0.9 (0.7-2.0) mmol/L Calcium 9.0 (8.4-10.2) mg/dL Magnesium 1.5 L (1.6-2.3) mg/dL Total Bilirubin 0.6 (0.2-1.3) mg/dL AST 28 (17-59) U/L ALT 24 (6-50) U/L Alkaline Phosphatase 53 (38-126) U/L Ammonia < 9 L (9-30) umol/L Total Creatine Kinase 85 (55-170) U/L Troponin I < 0.012 (0.000-0.034) ng/mL NT-Pro-B Natriuret Pep 372 H (19.9-100) pg/mL Total Protein 6.0 L (6.3-8.2) g/dL Albumin 3.9 (3.5-5.1) g/dL TSH 2.400 (0.465-4.680) uIU/mL Urine Color Yellow (Yellow) Urine Appearance Clear (Clear) Urine pH 6.0 (5.0-9.0) Ur Specific Custer 1.021 (1.001-1.035) Urine Protein Negative (Negative) mg/dL Urine Glucose (UA) Negative (Negative) mg/dL Urine Ketones Trace H (Negative) mg/dL Ur Blood (Man) Negative (Negative) Urine Nitrate Negative (Negative) Urine Bilirubin Negative (Negative) Urine Urobilinogen 1.0 (<2.0) mg/dL Leukocyte Esterase Rfl Negative (Negative) JOHN/UL Salicylates < 1.0 L (2-20) mg/dL Urine Opiates Screen Negative (Negative) Urine Methadone Screen Negative (Negative) Acetaminophen < 10 L (10-30) ug/mL Ur Barbiturates Screen Negative (Negative) Ur Phencyclidine Scrn Negative (Negative) Ur Amphetamine Screen Negative (Negative) U Benzodiazepines Scrn Positive A (Negative) Urine Cocaine Screen Negative (Negative) U Cannabinoids Screen Negative (Negative) Ethyl Alcohol < 10 (<10) mg/dL Influenza A (RT-PCR) (Negative) Influenza B (RT-PCR) (Negative) RSV (RT-PCR) (Negative) SARS-CoV-2 RNA (RT-PCR) (Negative) 11/01/24 Range/Units 23:47 WBC (4.5-10.0) K/mm3 RBC (4.6-6.20) M/mm3 Hgb (14.0-18.0) g/dL Hct (42.0-52.0) % MCV (80-100) fl MCH (26-34) pg MCHC (32-36) g/dl RDW (11.5-14.5) % Plt Count (150-375) k/mm3 MPV (7.4-10.4) fl Immature Gran % (Auto) (0-0.5) % Neut % (Auto) (45.5-73.1) % Lymph % (Auto) (18.3-44.2) % Elliott % (Auto) (2.6-8.5) % Eos % (Auto) (0-4.4) % Baso % (Auto) (0.2-1.2) % Lymph # (Auto) (0.9-3.2) K/mm3 Elliott # (Auto) (0.1-0.6) K/mm3 Eos # (Auto) (0-0.3) K/mm3 Baso # (Auto) (0.0-0.1) K/mm3 Abs Immat Gran (auto) (0.00-0.031) K/mm3 Absolute Neuts (auto) (1.3-6.7) K/mm3 Absolute Nucleated RBC (0.0-0.012) K/mm3 Nucleated RBC % (0.0-0.2) % PT (11.1-14.7) Seconds INR APTT (22.3-36.8) Seconds Sodium (137-145) mmol/L Potassium (3.4-5.0) mmol/L Chloride (98-107) mmol/L Carbon Dioxide (22-30) mmol/L Anion Gap (4-12) mmol/L BUN (9-20) mg/dL Creatinine (0.7-1.3) mg/dL Estim Creat Clear Calc ml/min Estimated GFR (59 - ) Glucose (65-110) mg/dL Lactic Acid (0.7-2.0) mmol/L Calcium (8.4-10.2) mg/dL Magnesium (1.6-2.3) mg/dL Total Bilirubin (0.2-1.3) mg/dL AST (17-59) U/L ALT (6-50) U/L Alkaline Phosphatase (38-126) U/L Ammonia (9-30) umol/L Total Creatine Kinase (55-170) U/L Troponin I (0.000-0.034) ng/mL NT-Pro-B Natriuret Pep (19.9-100) pg/mL Total Protein (6.3-8.2) g/dL Albumin (3.5-5.1) g/dL TSH (0.465-4.680) uIU/mL Urine Color (Yellow) Urine Appearance (Clear) Urine pH (5.0-9.0) Ur Specific Custer (1.001-1.035) Urine Protein (Negative) mg/dL Urine Glucose (UA) (Negative) mg/dL Urine Ketones (Negative) mg/dL Ur Blood (Man) (Negative) Urine Nitrate (Negative) Urine Bilirubin (Negative) Urine Urobilinogen (<2.0) mg/dL Leukocyte Esterase Rfl (Negative) JOHN/UL Salicylates (2-20) mg/dL Urine Opiates Screen (Negative) Urine Methadone Screen (Negative) Acetaminophen (10-30) ug/mL Ur Barbiturates Screen (Negative) Ur Phencyclidine Scrn (Negative) Ur Amphetamine Screen (Negative) U Benzodiazepines Scrn (Negative) Urine Cocaine Screen (Negative) U Cannabinoids Screen (Negative) Ethyl Alcohol (<10) mg/dL Influenza A (RT-PCR) Negative (Negative) Influenza B (RT-PCR) Negative (Negative) RSV (RT-PCR) Negative (Negative) SARS-CoV-2 RNA (RT-PCR) Negative (Negative) Imaging Data Attestation: I personally reviewed and interpreted this imaging study as follows: My impression: Cardiomegaly and right-sided opacities Radiologist's impression: CT Head Stat Rad: Brain: No hemorrhage, hydrocephalus, mass effect, or herniation. CTA head stat rad: No acute occlusion, severe stenosis, or aneurysm. CTA neck: No significant stenosis or dissection. Chest x-ray one view stat rad: Cardiomegaly. No acute findings. CT C-spine impression: Bones: No acute fracture subluxation. Soft tissue: No prevertebral soft tissue swelling. ECG Data EKG #1: Attestation: I personally reviewed and interpreted this ECG as follows: ECG completion date: 11/01/24 ECG completion time: 20:57 Interpretation: Sinus bradycardia at a rate of 58 beats per minute. Full interpretation limited due to significant baseline artifact due to patient's tremor. Good R-wave progression across the precordial leads. No marnie T-wave inversions Discharge Plan Discharge Clinical Impression: Normocytic anemia, Altered mental status, Ptosis of eyelid, right, Chronic hyponatremia, Hypomagnesemia Patient Disposition: Still a Patient Condition: Stable
[2024-11-01 21:11] LABS: Basophils Percent Auto 0.6 % (0.2-1.2); Eosinophils Absolute Auto 0.3 K/mm3 (0-0.3); Eosinophils Percent Auto 5.3 % (0-4.4); Hematocrit 41.2 % (42.0-52.0); Hemoglobin 13.8 g/dL (14.0-18.0); Lymphocytes Absolute Auto 1.15 K/mm3 (0.9-3.2); Lymphocytes Percent Auto 21.6 % (18.3-44.2); Mean Corpuscular HGB Conc 33.5 g/dl (32-36); Mean Corpuscular Hemoglobin 30.6 pg (26-34); Mean Corpuscular Volume 91.4 fl (80-100); Mean Platelet Volume 8.6 fl (7.4-10.4); Monocytes Absolute Auto 0.7 K/mm3 (0.1-0.6); Monocytes Percent Auto 12.4 % (2.6-8.5); Neutrophils Absolute Auto 3.2 K/mm3 (1.3-6.7); Neutrophils Percent Auto 60.1 % (45.5-73.1); Platelet Count Result 268 k/mm3 (150-375); Red Blood Count 4.51 M/mm3 (4.6-6.20); Red Cell Distribution Width 12.4 % (11.5-14.5); White Blood Count 5.3 K/mm3 (4.5-10.0)
[2024-11-01 21:16] LABS: Add Urine Microscopic? NO; Appearance Urine Clear (Clear); Bilirubin Urine Negative (Negative); Blood Urine Negative (Negative); Color Urine Yellow (Yellow); Glucose Urine UA Negative (Negative); Ketones Urine Trace mg/dL (Negative); Leukocyte Esterase Ur Negative LEU/UL (Negative); Nitrate Urine Negative (Negative); Protein Urine Negative (Negative); Specific Grav Ur 1.021 (1.001-1.035)
--- OUTSIDE RECORDS SUMMARY | 2024-11-01 21:30 | XMS_ITS | CONTINUITY OF CARE DOCUMENT ---
Author Name bob rojas Address Unknown Organization [facility] Address [address] [place] [address] Phone [phone] Care Team Providers Care Chaperon Name Role Phone Monroe Harmon MD Unavailable Monroe Harmon MD Unavailable [phone] INSURANCE PROVIDERS Payer name Policy type / Coverage type [place] red democrat ID [place] MED[employer] Medicare [id number]
--- OUTSIDE RECORDS SUMMARY | 2024-11-01 21:30 | XMS_ITS ---
Author Organization [facility] Address [facility] [address] [facility] [address] [place] [address] Care Team Providers Care Promotion Specialist Name Role Phone Janette Hay Unavailable [phone] REASON FOR VISIT Transfer Of Care Social History Sex Assigned At : Social History Observation Description Sex Assigned At Male Encounters Encounter Location Date Provider Diagnosis [facility] [address] [address] 10/29/2024 Janette Hay Plan Of Treatment No Information Progress Notes * YUE GILDOB:1955 (69 yo M)Acc No.[id number]:10/29/2024 Patient: YUE BARNES :1955 A ge:69 Y S ex:Male Address:[address] [place] [address], [id number] * true * Date: Generated for Ney woodruff/Stuart/eTransmitting on: 0 11/01/2024 09:30 PM CDT
--- OUTSIDE RECORDS SUMMARY | 2024-11-01 21:31 | XMS_ITS ---
Author Organization [facility] Address [address] [place] [address] Care Team Providers Care Yeast Tender Name Role Phone Loretta Rooney Unavailable [phone] Allergies No Known Allergies REASON FOR VISIT follow up medication management Medications Medication SIG (Take, Route, Fr equency, Duration) Notes Start Date End Date Status Diclofenac Sodium 75 MG TAKE ONE TABLET BY MOUTH TWICE DAILY WITH FOOD Oral for 90 Days Active Carvedilol 12.5 MG TAKE ONE TABLET BY M OUTH TWICE DAILY Oral for 90 Days Act kenny diazePAM 5 MG 1/2 (one-half) tab Orally three times a day for 30 days As needed for severe anxiety/panic 06/01/2024 Active Lisinopril 40 MG TAKE ONE TABLET BY M OUTH DAILY Oral for 90 Days Active Sertraline HCl 50 MG 0.5 tab q am x 1 we ek, then 1 tab q am Orally Once a day for 30 days 06/01/2024 Active Social History Sex Assigned At : Social History Observation Description Sex Assigned At Male Problems Problem Type SNOMED Code ICD Code Onset Dates Problem Status W/U Status Risk Notes Problem Anxiety (98283982) Anxiety (F41.9) Active confirmed Vital Signs Height 72 in 06/01/2024 Height-cm 182.88 cm 06/01/2024 Encounters Encounter Location Date Provider Diagnosis [facility] [address] [place] [address] 06/01/2024 Loretta Rooney Panic attacks F41.0 and Anxiety F41.9 Assessments Encounter Date Diagnosis (ICD Code) Assessment Notes Treatment Notes Treatment Clinical Notes Section Notes 06/01/2024 Panic attacks (ICD-10 - F41.0) start sertraline 25mg qam x 1 wk, then 50mg qam; has pill cutter at home, can stay at 25mg longer if s/e cont diazepam 5mg, take 1/2 tab TID prn for severe anxiety/panic; qty 45 goal minimize use recommend decrease alcohol, do not combine Dx: panic attacks, anxiety diff: alcohol (denies problematic)-is decreasing PDMP: filled diazepam #45 on 03/26/24; no pain pills no significant improvement in panic/anxiety, regular occurence. discuss has been three months, not improving, agreed to short term trial bzo only as had worked in the past for brief, but has been 3 months, need to try other medication. Recommend SSRI, he consents, start sertraline review r/b/se and treatment couse, and can keep diazepam for now. then if improving, may be able to come off bzo. not interested in therapy f/u in 1 month, earlier if concerns -discussed transition to new provider as I am leaving the practice after this month note: have discussed medication options, recommended SSRI, cymbalta (may help chronic pain/neuropathy issues too), or buspar, over bzo (taking old scripts) as not recommended for long-term regular use and why, review r/b/se. He was opposed to trying other medication/side effects, etc. Agreed to 2-3 month trial diazepam (was already taking) without other medication to see if resolves. He feels it is r/t his current feet issues and that once he gets feeling back and can walk normal again it will resolve. I know I can get off the valium once I can walk Just need it for 2-3 months, the dr said feeling would come back in 2-3 months . agreed that he should be better and thinks he will get off again without issue. BUT if in 2-3 months, still issue, then change plan to SSRI/similar and/or counseling, they both verbalized understanding of risks, plan 06/01/2024 Anxiety (ICD-10 - F41.9) SSRI consider therapy Plan Of Treatment Medication Medication Name Sig Start Date Stop Date Notes diazePAM 5 MG 1/2 (one-half) tab O rally three times a day for 30 days 06/01/2024 Sertraline HCl 50 MG 0.5 tab q am x 1 we ek, then 1 tab q am Orally Once a day for 30 days 06/01/2024 Treatment Notes Assessment Notes Panic attacks start sertraline 25mg qam x 1 wk, then 50mg qam; has pill cutter at home, can stay at 25mg longer if s/e cont diazepam 5mg, take 1/2 tab TID prn for severe anxiety/panic; qty 45 goal minimize use recommend decrease alcohol, do not combine Anxiety SSRI consider therapy Next Appt Details Follow Up: 3 Months, Reason: Progress Notes * YUE GILDOB:1955 (69 yo M)Acc No.[id number]:06/01/2024 Patient: YUE BARNES Provider: CRISS SPICER :1955 A ge:69 Y S ex:Male Date:06/01/2024 Address:[address] [place] [address] Check In:02:37 PM CSTCheck O ut:02:49 PM 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 Follow up medication management. 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 things are going good right now, they are going to put something in my back, a stimulator, I'm not happy about that. Walking a little better but not much. Anxiety a little better. 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 It's not all the time, just once in awhile. have panic attacks almost every day. If I could walk I'd be alright. Still have anxiety physical feelings often without panic attacks. Not worrying. Denies depression/sad/down/helpless/hopeless. Denies SI. Sleeping good. Denies corazon, psychosis. Denies opiate pain meds. Medical: as above. HTN, past colon cancer. Surgical: knee surgery x 2 in , back surgery x 2 in 2022, colon (cancer) 2008. c hronic health issues/pain: cancer treatment ruined his skin-delicate, back surgery 2022 gave numb feet, less mobile. G eneral Follow Up: ongoing notes: past meds: diazepam, no SSRI INITIAL SUBSTANCE USE HX: Caffeine: 1 can Cigarette/vape: nonsmoker ETOH: 6 beers a night, one an hour; every day x 10 yrs; denies any concerns not even enough at that rate to get drunk ; Denies past problems Cannabis: Denied Other drug use or tx hx: Denied Intake hx: r/t anxiety. started years ago, but then kicked back in after knee surgery 2019 and I had to get off the pain pills because they wouldn't give me the valium with it. I still have anxiety once in a while. no one treating since then for years. and then Dr Cowan gave some diazepam and said to see pain management or psych. I went to pain management but she wouldn't give it to me and set me up with you. Then says still has some found old prescription, and takes 1/2 tab. Counseling hx: none Trauma/abuse hx: denied Anxiety hx: denied overall being a worrier, says he is too laid back . Denied generalized anxiety. Panic attack hx: he says started 2019, she thinks maybe before that. He says they come and go. Went away for 9-12 months and now they are back again. after the back surgeries in 2022 and the numb feet and less able to walk around. came back a couple months ago. feeling multiple times a day. Does not change plans etc, I carry on. Denied hx of psychiatric hospitalizations, suicide attempts or self-injury. Denied current or past depression. * ROS: P sychiatric: Comments S [facility] for details. * Medical History: P ast Psychiatric History: Anxiety Disorder,Panic Disorder, atrial fibrillation: No, chronic fatigue syndrome: No, essential tremor: No, hypertension: Yes, Parkinson's disease: No, restless leg syndrome: No, stroke: No, subdural hematoma: No, type 1 diabetes mellitus: No, type 2 diabetes mellitus: No, vitamin B12 deficiency: No, vitamin D deficiency: No. * Medications: T aking Diclofenac Sodium 75 MG Tablet Delayed Release TAKE ONE TABLET BY MOUTH TWICE DAILY WITH FOOD Oral , Taking Carvedilol 12.5 MG Tablet TAKE ONE TABLET BY MOUTH TWICE DAILY Oral , Taking Lisinopril 40 MG Tablet TAKE ONE TABLET BY MOUTH DAILY Oral , Taking diazePAM 5 MG Tablet 1/2 (one-half) tab Orally three times a day As needed for severe anxiety/panic * Allergies: N .K.D.A. Objective: * Vitals: H t: 72 in, Ht-cm: 182.88 cm. * Examination: P sychiatry: Appearance: V IDEO VISIT Constitutional: Appearance alert, well-groomed, clean, appears well rested. No acute physical distress. Behavior: eye contact good, cooperative, pleasant. Abnormal body movements: n one. Affect / mood: a nxious. Attention: n ormal in conversation. Attitude: c ooperative. Suicidal ideation: n one. Memory status: n o impairment noted. Degree of awareness of surroundings: w ithin normal limits.? Delusions: n o. Hallucinations: n o. Insight: a irene of psychiatric problems. Intellectual functioning: n o impairment noted. Judgement: i ntact. Orientation: a wake, alert and oriented x 3. Perceptual disorders: n o perceptual disorder noted. Psychomotor activity: w ithin normal range. Speech / language: a ppropriate pitch/modulation, clear and coherent, normal rate, volume, and articulation (RVR), proper grammar used. Thought content: a ppropriate. Thought process: i ntact. Assessment: * Assessment: 1. P anic attacks - F41.0 (Primary) 2 . A nxiety - F41.9 Plan: * Treatment: 2. A nxiety Notes: SSRI consider therapy * Procedure Codes: G 9903 Pt scrn tbco id as non user * Follow Up: 3 Months * Billing Information: * Visit Code: 31746 OFFICE OUTPATIENT VISIT 15 MINUTES EXPANDED HISTORY AND EXAM/LOW MEDICAL DECISION MAKING. * Procedure Codes: G9903 Pt scrn tbco id as non user. * Sign off status: Completed true * Provider: CRISS SPICER Date: Generated for Ney woodruff/Stuart/Johnathan on: 0 11/01/2024 09:31 PM CDT History and Physical Notes * Examination Category Sub-Category Detail Notes Category Not es Psychiatry Appearance: VIDEO VISIT Cons titutional: Appearance alert, well-groomed, clean, appears well rested. No acute physical distress. Behavior: eye contact good, cooperative, pleasant Attitude: cooperative Psychomotor activity: within normal rang e Abnormal body movements: none Attention: normal in conversati on Degree of awareness of surroundings: wit hin normal limits Orientation: awake, alert and katherine ented x 3 Affect / mood: anxious Speech / language: appropriate pitch/mo dulation, clear and coherent, normal rate, volume, and articulation (RVR), proper grammar used Insight: aware of psychiatric problems Judgement: intact Thought process: intact Thought content: appropriate Perceptual disorders: no perceptual diso rder noted Suicidal ideation: none Intellectual functioning: no impairment noted Memory status: no impairment noted Delusions: no Hallucinations: no
--- OUTSIDE RECORDS SUMMARY | 2024-11-01 21:31 | XMS_ITS ---
Author Organization [facility] Address [facility] [address] [address] Care Team Providers Care Boiler Service Technician Name Role Phone Janette Hay Unavailable [phone] REASON FOR VISIT no calls, messages, or voicemail Social History Sex Assigned At : Social History Observation Description Sex Assigned At Male Encounters Encounter Location Date Provider Diagnosis [facility] [employer] [facility] [address] [address] 10/30/2024 Janette Hay Plan Of Treatment No Information Progress Notes * JEFFERYYUEDOB:1955 (69 yo M)Acc No.[id number]:10/30/2024 Patient: YUE BARNES Provider: CRISS WALLACE :1955 A ge:69 Y S ex:Male Date:10/30/2024 Address:[address] [place], [place] [id number] Subjective: * Chief Complaints: * 1 . No calls, messages, or voicemail. * Medical History: Objective: * Vitals: Assessment: Plan: * Treatment: * Procedure Codes: N S NO SHOW * Billing Information: * Visit Code: * Procedure Codes: NS NO SHOW. * Sign off status: Completed true * Provider: CRISS WALLACE Date: 10/30/2024 Generated for Ney woodruff/Stuart/Johnathan on: 0 11/01/2024 09:31 PM CDT
--- OUTSIDE RECORDS SUMMARY | 2024-11-01 21:31 | XMS_ITS | Patient Health Record ---
Author Organization [facility] Address [address] [place] [address] Care Team Providers Care Applied Behavior Specialist Name Role Phone Levi Carver Unavailable [phone] Chandrika Hayfer Unavailable [phone] Loretta Rooney Unavailable [phone] Migration, Provider Unavailable Unavailable Allergies No Known Allergies Results Component Value Reference Range Notes UDT Reviewed date:02/29/2024 08:47:23 AM Interpretation: Performing Lab: Notes/Report: THC neg 0 - 50 ng/ml Cocaine neg 0 - 300 ng/ml Amphetamine neg 0 - 1000 ng/ml Buprenorphine (BUP) neg 0 - 10 ng/ml Secobarbital (Bar) neg 0 - 300 ng/ml Oxazepam (BZO) pos 0 - 300 ng/ml 6-ygmwhufxmd-5,6-rumtauer-3,3-diphenylpyrrolidine (LORI P) neg 0 - 300 ng/ml Methamphetamine (MET) neg 0 - 1000 ng/ml Methylenedioxymethamphetamine (MDMA) neg 0 - 500 ng/ml Morphine (MOP 300/DLZ8247) neg 0 - 300 ng/ml Methadone (MTD) neg 0 - 300 ng/ml Phencyclidine (PCP) neg 0 - 25 ng/ml Nortriptyline (TCA) neg 0 - 1000 ng/ml Oxycodone neg 0 - 300 ng/ml x neg 0 - 300 ng/ml Reason For Referral No Information Medications Medication SIG (Take, Route, Fr equency, [...] for 30 days 06/01/2024 Active Social History Tobacco Use: Social History Observation Description Date Details (start date - stop date) Never Smoker NA - NA Sex Assigned At : Social History Observation Description Sex Assigned At Male Tobacco Control (Standard) Question Answer Notes Tobacco use: Nonsmoker AUDIT-C (Standard) Question Answer Notes Did you have a drink contain ing alcohol in the past year? Yes How often did you have a dri nk containing alcohol in the past year? Declined to specify (0 point) Section Notes: Lives in [place] with w love of 44 yrs, 3 grown kids. 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 Problems Problem Type SNOMED Code ICD Code Onset Dates Problem Status W/U Status Risk Notes Problem Panic disorder (095250229) Panic attacks (F41.0) Active confirmed Problem Anxiety (28310683) Anxiety (F41.9) Active confirmed Vital Signs Heart Rate 78 /min 02/27/2024 Height-cm 182.88 cm 06/01/2024 Blood pressure diastolic 88 mm Hg 02/27/2024 Weight-kg 96.16 kg 02/27/2024 Height 72 in 06/01/2024 Blood pressure systolic 144 mm Hg 02/27/2024 Weight 212 lbs 02/27/2024 BMI 28.75 kg/m2 02/27/2024 Encounters Encounter Location Date Provider Diagnosis [facility] [employer] [place] [address] [facility] [address] [address] 02/27/2024 Loretta Rooney Panic attacks F41.0 [facility] [employer] [place] [address] [facility] [address] [address] 04/09/2024 Loretta Rooney Panic attacks F41.0 [facility] [employer] [place] [address] [facility] [address] [address] 05/22/2024 Levi Carver [facility] [place] [address] [address] 06/01/2024 Loretta Mohrynek Panic attacks F41.0 and Anxiety F41.9 [place] [address] [facility] [address] [address] 10/30/2024 Janette Hay [address] [address] 01/04/2024 Provider Migration [address] [address] 01/05/2024 Provider Migration [address] [address] 04/09/2024 Levi Wen [address] [address] 05/25/2024 Loretta Mindyoszjonathan Panic attacks F41.[address] [address] 05/28/2024 Loretta Rooney [address] [address] 10/29/2024 Janette Hay Assessments Encounter Date Diagnosis (ICD Code) Assessment Notes Treatment Notes Treatment Clinical Notes Section Notes 02/27/2024 Panic attacks (ICD-10 - F41.0) diazepam 5mg, take 1/2 tab TID prn for severe anxiety/panic; qty 45 goal minimize use recommend decrease alcohol, do not combine Dx: panic attacks diff: anxiety, alcohol (denies problematic) [place] BZO; only tylenol #3 from March to August -[place], [place] 3 years, can see Dr Cowan sent 10 monthly scripts for diazepam 10mg qty 30, from 01/08/22 to 10/12/22 alcohol 6 beers/day, denies concerns UDS: +BZO discuss dx and tx considerations. intermittent hx panic attacks, that have come back recently, they feel r/t current health issues. discuss medication options, recommend SSRI, cymbalta (may help chronic pain/neuropathy issues too), or buspar, over bzo (taking old scripts) as not recommended for long-term regular use and why. lengthy discussion of options, r/b/se. He does not want to try any other medication, risk not feeling himself. Only wants diazepam-taking 1/2 tab (so 5mg) generally, sometimes more. Feels it is r/t his current feet issues and that once he gets feeling back and can walk normal again it will resolve. I know I can get off the valium once I can walk Just need it for 2-3 months, the dr said feeling would come back in 2-3 months . agrees that he should be better and thinks he will get off again without issue. recommend counseling; declines agree to short term, extensive education on r/b/se, cognition, falls, worsening anxiety sx [place], dependence/tolera nce, addiction, respiratory sedation, do not combine with opiate pain pills or alcohol (minimize this), etc. Given [place] BZO risks handout. BUT if in 2-3 months, still issue, then change plan to SSRI/similar and/or counseling, they both verbalize understanding of risks, plan f/u in 6 wks, earlier if concerns 04/09/2024 Panic attacks (ICD-10 - F41.0) cont diazepam 5mg, take 1/2 tab TID prn for severe anxiety/panic; qty 45 goal minimize use recommend decrease alcohol, do not combine Dx: panic attacks diff: anxiety d/o, alcohol (denies problematic)-is decreasing PDMP: filled diazepam #45 on 03/26/24; no pain pills no significant improvement in panic, though managing with medication, having some improvement with his feet, though hip still issue so not walking much (why he feels having panic attacks). will keep same, but if next appt not improved/resolved will need to look at other meds as discussed at new pt appt (see below), pt v/u not interested in therapy f/u 6 wks, earlier if concerns note: have discussed medication options, recommended SSRI, [...] they both verbalized understanding of risks, plan 05/25/2024 Panic attacks (ICD-10 - F41.0) 06/01/2024 Panic attacks (ICD-10 - F41.0) start [...] F41.9) SSRI consider therapy Plan Of Treatment No Information Insurance Providers Payer Name Payer Address Payer Phone Subscriber Number Group Number Insured Name Patient Relationship to Insured Coverage Start Date Coverage End Date Medicare-I l Medicare [address] [place] [phone] [id number] YUE GIL Self - patient is the insured [facility] [address] [place] [address] [id number] YUE GIL Self - patient is the insured Medical (General) History Medical History History ICD Code Past Psychiatric History: Anxiety Disord er,Panic Disorder atrial fibrillation: No chronic fatigue syndrome: No essential tremor: No hypertension: Yes Parkinson's disease: No restless leg syndrome: No stroke: No subdural hematoma: No type 1 diabetes mellitus: No type 2 diabetes mellitus: No vitamin B12 deficiency: No vitamin D deficiency: No Surgical History Surgery Date(Month/Year) knee surgeery back surgery 2022 colon 2009
--- OUTSIDE RECORDS SUMMARY | 2024-11-01 21:31 | XMS_ITS | Clinical Summary ---
Author Organization [facility] Address [address] [place] [address] Phone Care Team Providers Care Coordinator Hotels Name Role Phone Can Melendez APRN, JAVA XML DEVELOPER Primary Care Provider Social History Tobacco Use Types Packs/Day Years Used Date Smoking Tobacco: Never Assessed Sex and Gender Information Value Date Recorded Sex Assigned at Not on file Legal Sex Male 1:45 PM CDT Gender Identity Not on file Sexual Orientation Not on file Plan of Treatment Health Maintenance Due Date Last Done Comments Hepatitis C Virus (HCV) Screening 1955 TdaP Immunization 1955 Colonoscopy 1998 Colorectal Cancer Screening 1998 Cologuard 2003 Immunochemical Fecal Occult Blood 2003 Pneumococcal Immunization (5 0+ years) (1 of 1 - PCV) 2003 Zoster Immunization (1 of 2) 2003 Influenza Immunization (#1) 2024 SARS-COV-2 Immunization (3 - 2023- season) 2024 11/07/2020, 09/29/2020 Respiratory Syncytial Virus (RSV) Immunization (Adult) (1 - 1-dose 75+ series) 2028 Hepatitis B Immunization Aged Out No longer eligible based on patient's age to complete this topic Meningococcal Immunization (ACWY) Aged Out No longer eligible b ased on patient's age to complete this topic Rotavirus Immunization Aged Out No lo nger eligible based on patient's age to complete this topic Insurance MEDICARE COMMERCIAL GENERIC Care Teams Coordinator Hotels Relationship Specialty Start Date End Date Can Melendez, TEACHER'S ASSISTANT, JAVA XML DEVELOPER [address] [place] [address] PCP - General Advanced Practice Nurse 03/26/24
--- OUTSIDE RECORDS SUMMARY | 2024-11-01 21:31 | XMS_ITS | Data Portability ---
Author Organization [place] [employer], Main Office Address [address] [place] [address] Assessment Encounter Date Assessment Date Assessment LastModified by Organization Details LastModified Time 11/06/2023 11/06/2023 The patient gave verbal consent using TelePhonic services and the consent is documented in the medical record prior to using the service. The patient has been informed of what a TeleMedicine visit is. Patient is located at home. Provider is located at office. Names and roles of persons in addition to the patient and provider participating in telemedicine services include none. The patient had a 5 minute TeleMedicine consultation via [employer] to discuss the following: [email or web address] Not available 11/06/2023 17:17:43 Plan of Treatment Reminders Order Date Submit Date Provider Last Modified By Organization Details Last Modified Time Details Appointments None recorded. Lab PSA, total, serum or plasma 2024 025 [facility] (Lab), [address] [place], [address], 5 03:50:28 CBC w/ auto diff 2024 025 [facility] (Lab), [address] [place], [address], 5 03:50:28 CMP, serum or plasma 2024 025 [facility] (Lab), [address] [place], [address], 5 03:50:27 glycohemog lobin, total, blood 2024 025 [facility] (Lab), [address] [place], [address], 5 10:34:58 lipid panel, serum 2024 025 NABIL [facility] (Lab), [address] [place], [address], 5 03:50:27 TSH, serum or plasma 2024 025 llalor [facility] (Lab), [address] [place], [address], 5 10:34:58 PSA, serum or plasma [address] (Lab), [address] [place], [address], 4 09:45:15 TSH, serum or plasma [address] (Lab), [address] [place], [address], 4 09:44:34 glycohemog lobin, total, blood [address] (Lab), [address] [place], [address], 4 09:44:53 CMP, serum or plasma [address] (Lab), [address] [place], [address], 4 09:45:06 testostero ne, free + total, serum [address] (Lab), [address] [place], [address], 4 09:44:44 CBC [address] (Lab), [address] [place], [address], 4 09:44:22 PSA, serum or plasma [address] (Lab), [address] [place], [address], 4 08:15:33 BMP, serum or plasma [address] (Lab), [address] [place], [address], 4 08:15:33 lipid panel, serum [address] (Lab), [address] [place], [address], 4 08:15:33 hepatic function panel, serum [address] (Lab), [address] [place], [address], 4 08:15:33 TSH, serum or plasma [address] (Lab), [address] [place], [address], 4 08:15:33 CBC [address] (Lab), [address] [place], [address], 4 08:15:34 glycohemog lobin, total, blood [address] (Lab), [address] [place], [address], 4 08:15:34 Referral neurologis t referral - Please call patient to schedule an appointmen t. Thank you. 2024 025 JOSUÉ Burt MD, [address], [place], [address], 5 17:10:44 Procedures nerve conduction study/EMG, lower extremity (PROC) - *Please call pt to schedule* 2023 024 NABIL [facility] Nerve Condution Scheduling, [address], [place], [address], 15:14:24 Surgeries None recorded. Imaging None recorded. Medication Orders amoxicilli n 875 mg-potassi um clavulanat e 125 mg tablet 2023 024 77 [facility], [address] [place] [address], [id number], 5 14:44:41 Patient TargetsNo targets recorded. Patient Instructions Encounter Date Encounter Id Patient Instructions Last Modified By Organization Details Last Modified Time 11/06/2023 [id number] Due to the COVID-19 (Novel Coronavirus) pandemic, it is within this context (and with the understanding that this method of patient encounter is in the patient s best interest as well as the health and safety of other patients and the public) that t [facility] is being provided for this patient encounter rather than a sdxs-cx-zyry visit. This patient encounter is appropriate at this time. This patient has been advised of the potential risks and limitations of this mode of treatment (including, but not limited to, the absence of in-person examination) and has agreed to be treated in a remote fashion despite these risks. Any and all of the patient s /patient s family s questions on this issue have been answered, and I have made no promises or guarantees to the patient. The patient has also been advised to contact this office for worsening conditions or problems, and seek emergency medical treatment and/or call 911 if the patient deems either necessary. HPI and/or vitals, if listed, were provided by the patient. [email or web address] Not available 11/06/2023 16:55:49 Reason for Referral Neurologist Referral for Par esthesia of lower extremity Please call patient to schedule an appointment. Thank you. Referring Physician: Enriqueta Corrales, Family Medicine, Encounter Date: 10/21/2024 Results Created Date Observation Date Name Description Value Unit Range Abnormal Flag Note LastModifiedBy Organization Detail LastModifiedTime 12/04/19 24 12/04/2023 nerve condu ction study /EMG, lower extre mity (PROC ) No observ ation record ed. [email or web address] _[facility] , [place], [address], 01/20/2024 09:12:45 12/04/19 24 12/04/2023 nerve condu ction study /EMG, lower extre mity (PROC ) No observ ation record ed. [email or web address] _[facility]_[address] , [place], [address], 01/20/2024 09:12:33 04/15/20 24 04/14/2024 CT, angio gram, abdom en + pelvi s, w/ contr ast No observ ation record ed. [email or web address] [facility] [address] [place], [address], 04/29/2024 09:59:02 Result Notes None recorded. Problems Name Problem SNOMED Code Status Onset Date Resolution Date Notes Provider Name and Address Organization Details Recorded Time Osteoarthr itis 571674838 Active Not Available [employer] 3 18:39:02 Malignant tumor of colon 233021147 Active 2022 Chelsi Carrasco MD [address] [facility] [address], [place], [address] , [place] [facility] [employer] [facility] 3 16:45:26 Degenerati on of lumbar interverte bral disc 73598124 Active 2022 Chelsi Carrasco MD [address], [place], [address] , [employer] 3 16:52:21 Prostate specific antigen above reference range 059726277 Active 2022 DAVID GunterP-C [address], [address], [place], [address] , [employer] 3 15:52:59 Erectile dysfunctio n 607452476 Active 2022 PAM Gunter-C [address], [address], [place], [address] , [employer] 3 15:53:34 Essential hypertensi on 11160400 Active 2022 DAVID GunterP-C [address], [address], [place], [address] , [employer] 3 15:52:30 Toothache 52933803 Active 2023 PAM Gunter-C [address], [address], [place], [address] , [employer] 4 16:59:57 Paresthesi a of lower extremity 800403243 Active 2023 Can Melendez RESPIRATORY CARE PROGRAM DIRECTOR-C [address], [address], [place], [address] , [employer] 4 16:55:16 Generalize d anxiety disorder 92711491 Active 2023 ISATU Hanna [address], [address], [place], [address] , [facility] 4 10:14:16 Mixed anxiety and depressive disorder 707876462 Active 2023 ISATU Hanna [address], [address], [place], [address] , [facility] 4 10:14:45 Testostero ne level below reference range 434359229 Active 2023 Can Chandrajoanne RESPIRATORY CARE PROGRAM DIRECTOR-C [address], [place] [address], [place], [address] , [facility] [employer] [facility] [employer] [facility] 4 08:40:08 Open wound of left lower leg 0110866973806 9106 Active 2023 Can Chandrajoanne RESPIRATORY CARE PROGRAM DIRECTOR-C [address] [facility], [place] [address], [place], [address] , [facility] [employer] [facility] [employer] [facility] 4 14:30:49 Hyponatrem ia 54790867 Active 2024 DAVID HannaP-C [address] [facility], [place] [address], [place], [address] , [facility] [employer] [facility] [employer] [facility] 5 08:41:56 Problem Notes None recorded. Procedures Surgical History Date Name Laterality Status Provider Name and Address Organization Details Recorded Time Colon Surgery completed Chelsi Carrasco MD [address] [facility] [address], [place] [address], [place], [address], [facility] [employer] [facility] [employer] [facility] 11/20/2022 16:43:59 total knee replacement completed Luiza Gatica MA [facility] [employer] [facility] 11/20/2022 16:28:52 total knee replacement completed Luiza Gatica MA [facility] [employer] [facility] 11/20/2022 16:29:13 Imaging Results Imaging Date Name Status LastModified by [email or web address] Details LastModified Time 12/04/2023 nerve conduction study/EMG, lower extremity (PROC) completed [id number] [facility] , [place], [address], 01/20/2024 09:12:45 12/04/2023 nerve conduction study/EMG, lower extremity (PROC) completed [id number] [facility] , [place], [address], 01/20/2024 09:12:33 04/14/2024 CT, angiogram, abdomen + pelvis, w/ contrast completed [email or web address] [facility] [address], [place], [address], 04/29/2024 09:59:02 Procedure Notes None recorded. Medical Equipment None Reported. Allergies No known drug allergies Medications Name Sig Start Date Stop Date Status Note LastModified by Organization Details LastModified Time cyclobenzap rine 10 mg tablet TAKE ONE TABLET BY MOUTH THREE TIMES DAILY 10/21 completed Not Available Not Available Not Available doxycycline hyclate 100 mg capsule TAKE ONE CAPSULE BY MOUTH EVERY TWELVE HOURS FOR 10 DAYS 11/20 completed Not Available Not Available Not Available carvedilol 12.5 mg tablet TAKE ONE TABLET BY MOUTH TWICE DAILY EVERY MORNING & EVENING FOR BLOOD PRESSURE & HEART active Not Available Not Available No t Available enalapril maleate 10 mg tablet 06/20 completed Not Available Not Available Not Available azithromyci n 250 mg tablet TAKE 2 TABLETS BY MOUTH ON DAY 1, THEN TAKE 1 TABLET DAILY ON DAYS 2-5 11/20 completed Not Available Not Available Not Available hydrocodone 5 mg-acetamin ophen 325 mg tablet TAKE ONE TABLET BY MOUTH FOUR TIMES DAILY NEEDED FOR SEVEN DAYS 10/21 completed Not Available Not Available Not Available meloxicam 15 mg tablet TAKE ONE TABLET BY MOUTH EVERY DAY WITH FOOD FOR PAIN 10/21 completed Not Available Not Available Not Available lisinopril 20 mg tablet TAKE ONE TABLET BY MOUTH EVERY DAY 10/21 completed Not Available Not Available Not Available acetaminoph en 300 mg-codeine 30 mg tablet TAKE ONE TABLET THREE TIMES DAILY NEEDED FOR PAIN 10/21 completed Not Available Not Available Not Available doxycycline monohydrate 100 mg tablet TAKE ONE TABLET BY MOUTH TWICE DAILY IN THE MORNING & EVERY NIGHT AT BEDTIME FOR INFECTION FOR SEVEN DAYS 10/21 completed Not Available Not Available Not Available tramadol 50 mg tablet Take 1 tablet twice a day by oral route. 11/29 completed Not Available Not Available Not Available acetaminoph en 500 mg tablet TAKE ONE TABLET BY MOUTH EVERY 6 HOURS NEEDED FOR PAIN 11/20 completed Not Available Not Available Not Available cephalexin 500 mg capsule TAKE ONE CAPSULE BY MOUTH TWICE DAILY 11/20 completed Not Available Not Available Not Available diclofenac sodium 75 mg tablet,harleen yed release TAKE ONE TABLET BY MOUTH TWICE DAILY EVERY MORNING & EVERY EVENING WITH MEALS FOR PAIN active Not Available Not Available No t Available diazepam 10 mg tablet TAKE ONE TABLET BY MOUTH EVERY DAY NEEDED FOR ANXIETY 11/20 completed Not Available Not Available Not Available methylpredn isolone 4 mg tablets in a dose pack Use as directed on package 10/21 completed Not Available Not Available Not Available albuterol sulfate HFA 90 mcg/actuati on aerosol inhaler INHALE TWO PUFFS BY MOUTH EVERY 4 TO 6 HOURS NEEDED FOR BREATHING 10/21 completed Not Available Not Available Not Available lisinopril 40 mg tablet TAKE ONE TABLET BY MOUTH EVERY MORNING FOR BLOOD PRESSURE active Not Available Not Available No t Available diazepam 5 mg tablet TAKE 1/2 TABLET THREE TIMES DAILY NEEDED SEVERE ANXIETY OR PANIC active Not Available Not Available No t Available amoxicillin 875 mg-potassiu m clavulanate 125 mg tablet TAKE ONE TABLET BY MOUTH EVERY TWELVE HOURS FOR 7 DAYS 10/21 completed Not Available Not Available Not Available tadalafil 20 mg tablet TAKE ONE TABLET BY MOUTH EVERY DAY 2023 active Not Available Not Available Not Avai lable Cialis 5 mg tablet 06/20 completed Not Available Not Available Not Available Prostate Max Plus active Not Available Not Available Not Available Vitals Date Recorded Body height Body mass index (BMI) Body weight Body temperature Heart rate Oxygen saturation Oxygen saturation in Arterial blood by Pulse oximetry Systolic blood pressure Diastolic blood pressure Provider Name and Address Organization Details Last Updated DateTime 4 182.88 cm 28.5 kg/m2 88611.4 g 99.8 [degF] 73 /min 92 % 92 % 122 mm[Hg] 80 mm[Hg] Uzma Floyd RN [facility] [employer] 4 14:24:56 Date Recorded Body height Body mass index (BMI) Body weight Provider Name and Address Organization Details Last Updated DateTime 11/06/2023 182.88 cm 28.8 kg/m2 96201.58 g CESAR Vazquez [facility] [employer] 11/06/2023 16:56:04 Date Recorded Body height Body mass index (BMI) Body weight Body temperature Heart rate Systolic blood pressure Diastolic blood pressure Provider Name and Address Organization Details Last Updated DateTime 4 182.88 cm 28.5 kg/m2 19730.4 g 97.3 [degF] 80 /min 144 mm[Hg] 90 mm[Hg] Uzma Floyd RN [facility] [employer] 4 16:46:48 Date Recorded Body height Body mass index (BMI) Body weight Body temperature Heart rate Oxygen saturation Oxygen saturation in Arterial blood by Pulse oximetry Systolic blood pressure Diastolic blood pressure Provider Name and Address Organization Details Last Updated DateTime 4 182.88 cm 29.2 kg/m2 46777.3 6 g 98.4 [degF] 68 /min 98 % 98 % 142 mm[Hg] 88 mm[Hg] Uzma Floyd RN [facility] [employer] 4 08:37:23 Date Recorded Body height Body mass index (BMI) Body weight Body temperature Heart rate Systolic blood pressure Diastolic blood pressure Provider Name and Address Organization Details Last Updated DateTime 5 182.88 cm 31.6 kg/m2 830490. 02 g 97.3 [degF] 86 /min 142 mm[Hg] 80 mm[Hg] Marbin Tillman RN [facility] [employer] 5 14:43:52 Social History Question Answer Notes LastModified by Organizat ion Details LastModified Time Tobacco Smoking Status Never Smoker Chelsi Carrasco MD [address] [place] [address], [address], [facility] [employer] 11/20/2022 16:49:00 What Is Your Level Of Alcohol Consumption? Occasional Information not available 02/20/2023 What Is Your Level Of Caffeine Consumption? Moderate Information not available 02/20/2023 Do You Use Insect Repellent Routinely? Yes Information not available 02/20/2023 Where Do You Live? [facility] Information not available 02/20/2023 What Was The Date Of Your Most Recent Tobacco Screening? 11/20/2022 [email or web address] Information not available 11/20/2022 Do You Have Any Pets? No Information not available 02/20/2023 Do You Use Your Seat Belt Or Car Seat Routinely? Yes Information not available 02/20/2023 Do You Have Smoke And Carbon Monoxide Detectors In Your Home? Yes Information not available 02/20/2023 Are You Passively Exposed To Smoke? No Information not available 02/20/2023 Are There Any Smokers In Your House? No Information not available 02/20/2023 Do You Participate In Social Media? No Information not available 02/20/2023 Do You Feel Stressed (tense, Restless, Nervous, Or Anxious, Or Unable To Sleep At Night)? [id number] Information not available 02/20/2023 Do You Use Any Illicit Or Recreational Drugs? No Information not available 02/20/2023 Do You Use Sunscreen Routinely? Yes Information not available 02/20/2023 Sex: Unknown Functional Status None recorded. Mental Status None recorded. Family History Relationship Description Onset Age of this Age Resolved Age Notes LastModified by Organization Details LastModified Time Father Malignant tumor of lung [email or web address] Not available 2022 16:48:30 Mother Malignant tumor of breast [email or web address] Not available 2022 16:48:45 Medical History No medical history recorded. Past Encounters Encounter ID Performer Location Encounter Start Date Encounter Closed Date Diagnosis/Indication Diagnosis SNOMED-CT Code Diagnosis ICD10 Code Diagnosis Note [id number] Chelsi Carrasco MD [facility] [address] [place] [address] 11/20/2022 16:13:13 11/20/2022 17:01:34 Degeneration of lumbar intervertebral disc 08080867 M51.36 discussed that he will need to continue to f/u with pain mgmt for terminal worker caretramad ol 50 mg po bid prnPt understand s this medication has risk for abuse/depe ndence and agrees to take it only as prescribed and to guard from loss/theft [place] prescript[place] monitoring website reviewed [id number] ISATU Gunter [facility] [address] [place] [address] 02/20/2023 15:01:08 02/20/2023 16:12:26 Prostate specific antigen above reference range 397956844 R97.20 Pt would like to hold off on PSA at this time. Encouraged to complete with next visit Erectile dysfunction 860 739588 F52.21 stable with this dosage [id number] [facility] [address] [place] [address] 03/27/2023 15:29:00 03/27/2023 16:04:25 Essential hypertension 11628696 I10 Bp noted to be 140/88 per myselfEduc ated on the need for taking bp med dailyWill continue lisinopril dailyDaily bp checks, Pt opts to get a new bp machine-Ed ucated on monitoring salt intake [id number] ISATU Gunter [facility] [address] [place] [address] 09/13/2023 14:11:57 09/13/2023 16:12:29 Adult health examination 760528284 Z00.00 Encouraged fresh fruits and veggies-lo w intakeIncr ease daily water intake-no water intake, only teaEncoura ge 30 mins of daily exercise-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 orderedDEX A-no hx of fracturesL DCT-not a smoker-dri nks occ-declin es flu and pneumonia shot [id number] ISATU Gunter [facility] [address] [place] [address] 11/06/2023 16:48:20 11/06/2023 17:25:32 Toothache 58361283 K08.89 -has been an issue for approx 6 days-appt with dental has not been scheduled yet-pain can be rated at 7-8/10 at times, uses oral numbing topical solution-e ncouraged to use tylenol/di clofenac combo for pain, ice as needed-tri al generic augmentin [id number] ISATU Gunter [facility] [address] [place] [address] 11/21/2023 16:35:44 11/21/2023 17:15:53 Paresthesia of lower extremity 391309671 R20.2 -noted to socorro legs-has been an issue for the last couple years-no hx of diabetes, declines A1c at this time-has never had an EMG, ordered [id number] ISATU Gunter [facility] Primary Care [facility] [address] [facility] [address] [place] [address] 03/10/2024 08:32:12 03/10/2024 09:38:34 Anemia screening 676646938 Z13.0 Thyroid di sorder screening 302298378 Z13.29 Testostero ne level below reference range 285628052 R89.1 Diabetes m ellitus screening 157143147 Z13.1 Screening for malignant neoplasm of prostate 129499741 Z12.5 [id number] ISATU Hanna [facility] Primary Care [facility] [address] [facility] [address] [place] [address] 10/21/2024 14:38:35 10/21/2024 15:11:25 Adult health examination 998075006 Z00.00 Essential hypertension 22316791 I10 Mixed anxi ety and depressive disorder 724707265 F41.8 Paresthesi a of lower extremity 956084884 R20.2 Patient requesting Pregabalin Prostate s pecific antigen above reference range 683188422 R97.20 Health Concerns Section Related Observation LastModified by Organization Detai ls LastModified Time None Recorded Concern Status LastModified by Organization Details LastModified Time None Recorded Advance Directives Directive None Recorded Payers Encounter Date Sequence Insurance Name Policy Number Policy Ch Covered Member ID Ch Member ID Guarantor Name 09/13/2023 1 [place] Robert Naylor [id number] Robert Naylor 09/13/2023 2 [employer] (MEDICARE SUPPLEMENT) Robert Naylor [id number] Robert Naylor 11/06/2023 1 [place] Naylor [id number] Robert Naylor 11/06/2023 2 [employer] (MEDICARE SUPPLEMENT) Robert Naylor [id number] Robert Naylor 11/21/2023 1 [place] Robert Whipple Dayday [id number] Robert Whipple Dayday 11/21/2023 2 [employer] (MEDICARE SUPPLEMENT) Robert Whipple Dayday [id number] Robert Whipple Dayday 03/10/2024 1 [place] Robert Whipple Dayday [id number] Robert Whipple Dayday 03/10/2024 2 [employer] (MEDICARE SUPPLEMENT) Robert Whipple Dayday [id number] Robert Whipple Dayday 10/21/2024 1 [place] Robert Whipple Dayday [id number] Robert Whipple Dayday 10/21/2024 2 [employer] (MEDICARE SUPPLEMENT) Robert Whipple Dayday [id number] Robert Whipple Dayday Notes Date Note Type Note Provider Name and Address Organization Details Recorded Time 09/13/2023 text/html Pt is here to complete annual physical DAVID GunterP-C [address], [place], [address], [employer] 09/13/2023 15:49:50 11/06/2023 text/html pt is a phone visit for toothache DAVID GunterP-C [address], [address], [place], [address], [employer] 11/06/2023 17:17:56 11/21/2023 text/html pt is here for paresthesia to lower extremities Can Melendez RESPIRATORY CARE PROGRAM DIRECTOR-C [address], [address], [place], [address], [employer] 11/21/2023 17:23:08 03/10/2024 text/html pt is here for f/u Can cartagena RESPIRATORY CARE PROGRAM DIRECTOR-C [address], [address], [place], [address], [employer] 03/10/2024 09:29:19 10/21/2024 text/html Patient is a 69 year old male that presents to the office for annual wellness. Patient refusing [facility] appointment. Patient states I am only here for that stuff my brother takes . Patient showed a text message from his brother to him stating to ask for Pregabalin. Discussed with patient that he does not have a diagnosis that warrants Pregabalin and I do not start patients on Pregabalin. Patient states so I am just sitting here wasting my time this is ridiculous . I informed patient that I would place a referral for neurology for further evaluation, diagnosis and treatment. Patient requesting address of neurology office so he can go there today because he has to have the stuff my brother is on . Discussed with patient that is not how referrals worked however I would send a referral to the referrals department and they would start working on it. Patient states then why the hell did I give her my stuff when I got here if you're not going to do anything . Patient states my brother gets the stuff so why can't I . I again discussed with patient that I do not start patient's on Pregabalin as it is a controlled medication however I would place a referral to neurology. Patient then states I am done here and exited exam room 2 . labs- orderedPSA- ordered PAM Hanna-Lona [address] [facility], [facility] [address], [place], [address], [place] [employer] Response 10/21/2024 15:08:58
--- OUTSIDE RECORDS SUMMARY | 2024-11-01 21:31 | XMS_ITS | Clinical Summary ---
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 Gender Identity Not on file Sexual Orientation Not on file Plan of Treatment Health Maintenance Due Date Last Done Comments Colorectal Cancer Screening Colonoscopy (10 Years) 1953 Hepatitis C 1971 DTaP, Tdap and Td Vaccines ( 1 - Tdap) 1972 Zoster Vaccines (1 of 2) 2003 Annual Medicare Wellness Visit 2018 Pneumococcal Vaccine: 65+ Years (1 of 1 - PCV) 2018 COVID-19 Vaccine (3 - 2023-2 5 season) 2024 11/07/2020, 09/29/2020 Influenza Adult (#1) 2024 RSV Immunization or 60+ Years (1 - 1-dose 75+ series) 2028 Meningococcal B Vaccine Aged Out No l onger eligible based on patient's age to complete this topic Meningococcal Vaccine Aged Out No tonya victoriano eligible based on patient's age to complete this topic RSV Immunizations Under 20 Months Aged Out No longer eligible b ased on patient's age to complete this topic Insurance MEDICARE Care Teams Director Of Content And Programming Relationship Specialty Start Date End Date Can Melendez NP [address] [place] [address] [place] [id number] PCP - General Nurse Practitioner Family 10/11/23
[2024-11-01 22:06] LABS: INR 1.1; Partial Thromboplastin Time 27.6 Seconds (22.3-36.8); Prothrombin Time 14.5 Seconds (11.1-14.7)
[2024-11-01 22:55] LABS: Alanine Aminotransferase 24 U/L (6-50); Albumin Level 3.9 g/dL (3.5-5.1); Alkaline Phosphatase 53 U/L (38-126); Anion Gap 10 mmol/L (4-12); Aspartate Amino Transferase 28 U/L (17-59); Bilirubin,Total 0.6 mg/dL (0.2-1.3); Blood Urea Nitrogen 15 mg/dL (9-20); Carbon Dioxide 25 mmol/L (22-30); Chloride 94 mmol/L (98-107); Estimated CRCL calculation 68 ml/min; Estimated Glomerular Filt Rate > 60; Glucose 99 mg/dL (65-110); Magnesium 1.5 mg/dL (1.6-2.3); Potassium 4.7 mmol/L (3.4-5.0); Sodium 129 mmol/L (137-145)
[2024-11-01 23:06] LABS: Amphetamine Screen Urine Negative (Negative); Barbiturate Screen Urine Negative (Negative); Benzodiazepines Screen Urine Positive (Negative); Cannabinoid Screen Urine Negative (Negative); Cocaine Screen Urine Negative (Negative); Methadone Screen Urine Negative (Negative); Opiate Screen Urine Negative (Negative); Phencyclidine Screen Urine Negative (Negative)
[2024-11-01 23:16] LABS: Creatine Kinase 85 U/L (55-170); Troponin I < 0.012 ng/mL (0.000-0.034)
[2024-11-01 23:26] LABS: Acetaminophen < 10 ug/mL (10-30); Ammonia < 9 umol/L (9-30); Ethanol < 10 mg/dL (<10); Lactic Acid Reflex 0.9 mmol/L (0.7-2.0); Salicylate < 1.0 mg/dL (2-20)
[2024-11-01] MEDS: MAGNESIUM OXIDE 400 MG TABLET PO (23:48)
[2024-11-01 23:52] VITALS: BP 170/68; PULSE 57; RESP 15; O2SAT 97
[2024-11-01 23:59] LABS: NT Pro B Type Natriuretic Pept 372 pg/mL (19.9-100)
[2024-11-02] VITALS (7 sets, daily range): BP systolic 115–156; BP diastolic 58–90; PULSE 51–57; RESP 15–18; TEMP 36–37; O2SAT 97–100; BMI 29.9
[2024-11-02 00:30] LABS: Influenza A QL RT-PCR Negative (Negative); Influenza B QL RT-PCR Negative (Negative); RSV RNA, RT-PCR Negative (Negative); SARS-CoV-2 RNA PCR Negative (Negative)
--- NOTE | 2024-11-02 02:41 | ADMGEN ---
This patient, Robert Naylor, was admitted to 3 [facility] Surg Room 304-02. Patient/family oriented to hospital policies and general routines including ID bracelet, bed and alarms, visiting hours, pain management, procedures, bathroom and other care routines, personal items, smoking policy, room service/diet, and visiting hours. Information on how to activate the Rapid Response Team has been discussed. Patient/Family are encouraged to report perceived risks to care and to ask questions if they do not understand what they are told or what they should do.
--- NOTE | 2024-11-02 04:16 | P.HP_ITS ---
H&P: HPI History of Present Illness Date/Time: 11/02/24 04:16 Chief Complaint: Increased confusion, drooping right eye Narrative: 69-year-old male with a past medical history of essential hypertension, distant history of colon cancer status post bowel resection, heavy alcohol use and peripheral neuropathy of lower extremities who presented to the ER from home in the company of his family due to drooping of the right eye and increased confusion. The patient denied any memory issues. His reports that the patient's memory has been slipping for the last year. The patient is alert orient x3 but does not give me any history of why he has come to the hospital. He tells me to ask his here. His is at bedside and provides history. She states that the patient has been having memory issues for the last year. That the issues become worsen is usually worse at night. The patient noted drooping of the patient's right eyelid for the last 3 days and increasingly unsteady gait. The patient can get the eye partially open if he really strains. He still has normal for awaiting of his eyebrows. The patient denies any difficulty with his vision but he was having difficulty manipulating the remote to turn on and off the light in the room despite both I and his telling him which button to push. The patient did not seem to be able to either see her understand the print on the remote. He has been having intermittent headaches for a couple of months. He is having headaches about twice a day. His states that his headache usually gets better when he takes Tylenol. He is not able to give me much in the way of details about his headaches. He has not went to an eye doctor for an eye exam. The patient's feels patient has peripheral neuropathy. The patient states that he has not been able to feel his feet since he had back surgery several years ago. However his notes that his gait has been significantly worse over the last 3 days in the patient is actually started breaking down in using a walker that they have at home for her use. reports that she has been trying to get the patient in to see a neurologist for his neuropathy and for evaluation of his memory issues. The patient is adamant that he does not have memory issues but clearly has difficulty perform providing much history. At the time my evaluation when the patient stuck his tongue when asked the patient's did admit that she thinks is tongue is going to the right somewhat. Patient did not have difficulty with finger-nose testing but again had difficulty reaching for the TB remote and manipulating the remote. He was quite tremulous which he had been tremulous during my prior evaluation in at that time it was attributed to alcohol use or withdrawal. The patient reports that the patient has cut back on his alcohol use somewhat in is only drinking 2-3 beers a day instead of his prior 6. Patient has been taking thiamin and folic acid since his last hospitalization in March. In the ER, CT scan of the brain and CT of the brain and neck were negative for acute process. The patient's does report that the patient snores but she thinks that his snoring has improved in recent months. The patient and his state that they desperately needs the diazepam. They state that his anxiety is gotten markedly worse over recent months and he needs to volume to sleep. However when I arrived in the patient's room the patient was sleeping soundly. The patient's states that the patient will sit in hold his hands or arms over his face to try to block out the environment because he is so anxious. They state that he has been taking the diazepam at home but it has not been refilled since May 2024. They state that they are not getting the diazepam from any other source. FOR[facility]LY [facility], [facility] Past Medical History Medical History (Updated 11/02/24 @ 04:43 by Loretta Nelson DO) Chronic hyponatremia Heavy alcohol consumption Peripheral neuropathy Following lumbar surgery Anxiety Colon cancer (2008) Status post chemotherapy and surgical resection. Patient reports he has not had a screening colonoscopy since his colon cancer diagnosis HTN (hypertension) Surgical History Surgical History History of tonsillectomy and adenoidectomy Status post cataract extraction of both eyes with insertion of intraocular lens History of laminectomy L4-L5 History of bilateral knee replacement Left December 2019; Right November [address] Eris Jacobs Family History Family History Mother Hypertension Breast cancer Father , At age 49 COPD (chronic obstructive pulmonary disease) Sibling Drug overdose Social History Social History Social History: Patient lives with his of 46 years. 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 He denies any history of tobacco use or illicit substance use. He does drink 6 beers night and has done so since his mid 20s. He and his raised 3 daughters and have 10 grandchildren in 2 great grandchildren. Code status: Full code Surrogate decision maker: Gila () Smoking status: Never smoker Second hand tobacco smoke exposure: Yes (father) Alcohol intake: current Drinks per week: 28 Alcohol use details: BEER Substance use: never Other substance usage details: 12-14 beers every evening. Last use: 01/13/2020 Do You Feel Safe in your Home?: Yes Lack of Transportation: No Lack of Food: Never True Current Housing: I Have Housing Concerned About Future Housing: No Difficulty Paying Gas/Electric Bills: No Difficulty Paying for Meds: No Currently Unemployed: No Education: High School Diploma/GED Difficulty w/ Childcare or Family Care: No Living arrangements: with family Additional living arrangements comments: Gender identity (if verbalized by the patient): Male Sexual Orientation (if Verbalized by the Patient): Straight or Heterosexual Spiritual care concerns: No Meds Home Medications and Allergies Home Medications ?Medication ?Instructions ?Recorded ?Confirmed ?Type multivitamin 1 tablet PO DAILY 10/15/19 11/02/24 History lisinopril 20 mg tablet 20 mg PO DAILY 01/14/20 11/02/24 History carvedilol 12.5 mg tablet 12.5 mg PO BID 12/05/20 11/02/24 History folic acid 1 mg tablet 1 mg PO DAILY #30 tabs 03/21/24 11/02/24 Rx thiamine HCl (vitamin B1) 100 mg 100 mg PO DAILY #30 tabs 03/21/24 11/02/24 Rx tablet diazepam 5 mg tablet 5 mg PO TID PRN anxiety 11/02/24 11/02/24 History diclofenac sodium 75 mg 75 mg PO Q12H 11/02/24 11/02/24 History tablet,delayed release tadalafil 20 mg tablet 20 mg PO DAILY 11/02/24 11/02/24 History Allergies Allergy/AdvReac Type Severity Reaction Status Date / Time No Known Allergies Allergy Verified 03/20/24 00:49 Vital Signs Vital Signs - 24 hr 11/01/24 20:48 11/01/24 23:52 11/02/24 01:28 Temperature 98.9 F Pulse Rate 56 L 57 L 55 L Respiratory Rate 15 15 15 Blood Pressure 164/80 H 170/68 H 142/58 H Pulse Oximetry 100 97 98 Oxygen Delivery Room Air Exam 2 Narrative: Weight 100 kg BMI 29.9 Const: Other: No acute distress, well-developed well-nourished HENMT: Other: Mucous membranes are moist slight deviation of tongue to the right Eyes: Other: Pupils are equal and reactive with evidence of lens replacements bilaterally Neck: Other: No lymphadenopathy, trachea midline Resp: Other: Clear to auscultation bilaterally, no increased work of breathing Cardio: Other: Sinus bradycardia, 2+ bilateral radial pedal pulses, no murmur GI: Other: Soft, nontender, nondistended, positive bowel sounds Skin: Other: Normal temperature to touch, tanned, non jaundice Neuro: Other: Alert orient x3, speech is clear and slow, patient has a right eyelid droop, he has sparing of the brow, no facial asymmetry, tongue seems to deviate slightly to the right, no fasciculations, no pronator drift, the patient had no dysmetria with [id number] but had difficulty understanding the testing and had to be demonstrated multiple times before he was able to complete the activity he had no dysmetria on [id number], he did have a fine tremor with arms extended, she has a somewhat flat affect and or masked faces, he has normal muscle tone Extrem: Other: Patient has 4/5 strength bilateral compliance monitor, has 5/5 plantar and dorsiflexion strength, has no cyanosis, no edema Psych: Other: Flat affect, resistance answering questions, poor judgment and insight H&P: Results Labs Labs: Laboratory Tests 11/01/24 20:58 11/01/24 20:58 11/01/24 11/01/24 11/01/24 20:58 21:02 22:42 WBC 5.3 RBC 4.51 L Hgb 13.8 L Hct 41.2 L MCV 91.4 MCH 30.6 MCHC 33.5 RDW 12.4 Plt Count 268 MPV 8.6 Immature Gran % (Auto) 0.0 Neut % (Auto) 60.1 Lymph % (Auto) 21.6 [place] % (Auto) 12.4 H Eos % (Auto) 5.3 H Baso % (Auto) 0.6 Lymph # (Auto) 1.15 [place] # (Auto) 0.7 H Eos # (Auto) 0.3 Baso # (Auto) 0.0 Abs Immat Gran (auto) 0.00 Absolute Neuts (auto) 3.2 Absolute Nucleated RBC 0.000 Nucleated RBC % 0.0 PT 14.5 INR 1.1 APTT 27.6 Sodium 129 L Potassium 4.7 Chloride 94 L Carbon Dioxide 25 Anion Gap 10 BUN 15 D Creatinine 0.97 Estim Creat Clear Calc 68 Estimated GFR > 60 Glucose 99 Lactic Acid 0.9 Calcium 9.0 Magnesium 1.5 L Total Bilirubin 0.6 AST 28 ALT 24 Alkaline Phosphatase 53 Ammonia < 9 L Total Creatine Kinase 85 Troponin I < 0.012 NT-Pro-B Natriuret Pep 372 H Total Protein 6.0 L Albumin 3.9 TSH 2.400 Urine Color Yellow Urine Appearance Clear Urine pH 6.0 Ur Specific [place] 1.021 Urine Protein Negative Urine Glucose (UA) Negative Urine Ketones Trace H Ur Blood (Man) Negative Urine Nitrate Negative Urine Bilirubin Negative Urine Urobilinogen 1.0 Leukocyte Esterase Rfl Negative Salicylates < 1.0 L Urine Opiates Screen Negative Urine Methadone Screen Negative Acetaminophen < 10 L Ur Barbiturates Screen Negative Ur Phencyclidine Scrn Negative Ur Amphetamine Screen Negative U Benzodiazepines Scrn Positive A Urine Cocaine Screen Negative U Cannabinoids Screen Negative Ethyl Alcohol < 10 Influenza A (RT-PCR) Influenza B (RT-PCR) RSV (RT-PCR) SARS-CoV-2 RNA (RT-PCR) 11/01/24 23:47 WBC RBC Hgb Hct MCV MCH MCHC RDW Plt Count MPV Immature Gran % (Auto) Neut % (Auto) Lymph % (Auto) [place] % (Auto) Eos % (Auto) Baso % (Auto) Lymph # (Auto) [place] # (Auto) Eos # (Auto) Baso # (Auto) Abs Immat Gran (auto) Absolute Neuts (auto) Absolute Nucleated RBC Nucleated RBC % PT INR APTT Sodium Potassium Chloride Carbon Dioxide Anion Gap BUN Creatinine Estim Creat Clear Calc Estimated GFR Glucose Lactic Acid Calcium Magnesium Total Bilirubin AST ALT Alkaline Phosphatase Ammonia Total Creatine Kinase Troponin I NT-Pro-B Natriuret Pep Total Protein Albumin TSH Urine Color Urine Appearance Urine pH Ur Specific [place] Urine Protein Urine Glucose (UA) Urine Ketones Ur Blood (Man) Urine Nitrate Urine Bilirubin Urine Urobilinogen Leukocyte Esterase Rfl Salicylates Urine Opiates Screen Urine Methadone Screen Acetaminophen Ur Barbiturates Screen Ur Phencyclidine Scrn Ur Amphetamine Screen U Benzodiazepines Scrn Urine Cocaine Screen U Cannabinoids Screen Ethyl Alcohol Influenza A (RT-PCR) Negative Influenza B (RT-PCR) Negative RSV (RT-PCR) Negative SARS-CoV-2 RNA (RT-PCR) Negative Assessment and Plan Assessment and plan (1) Ptosis of eyelid, right: Code(s): H02.401 - Unspecified ptosis of right eyelid Status: Acute (2) Memory changes: Code(s): R41.3 - Other amnesia Status: Acute (3) Heavy alcohol consumption: Code(s): F10.90 - Alcohol use, unspecified, uncomplicated Status: Acute (4) Hypomagnesemia: Code(s): E83.42 - Hypomagnesemia Status: Acute (5) Anxiety: Code(s): F41.9 - Anxiety disorder, unspecified Status: Acute (6) Chronic hyponatremia: Code(s): E87.1 - Hypo-osmolality and hyponatremia Status: Acute Plan Patient has ptosis of the right eye, unsteady gait worsening from baseline, and possible deviation of the tongue to the right all findings are concerning for possible CVA. CT of the brain and CT of the brain and carotids were negative for acute process. MRI the brain with and without contrast has been ordered. Echocardiogram will with bubble study has been ordered. Will monitor patient on telemetry. Neurology has been consulted. Will continue to monitor neuro checks. Will check B12 and folic acid levels to rule out some component of vitamin deficiency causing neuropathy or gait disturbance. Patient does likely have peripheral neuropathy but I suspect it is more for multifactorial due to chronic alcohol use, prior back surgery and or idiopathic. Patient has had low magnesium levels during prior hospitalizations in is low again. Magnesium sulfate 4 g has been ordered. Patient may benefit from oral supplementation on discharge. Patient is report that they want the patient to have diazepam back for his anxiety. I suspect that his anxiety may have increased recently due to his memory difficulties and or the fact that he has cut back on alcohol. States that he has cut back on alcohol since his last hospitalization. However given his concern for acute neurologic changes I would like to avoid giving him assess of amounts of benzodiazepines. I will cut the benzodiazepines back to b.i.d. dosing. The patient would benefit from neuropsych evaluation and more appropriate treatment of his anxiety with SSRI or other such medication. Will place PT and OT consult. Patient has been admitted as observation status. Quality VTE Prophylaxis VTE prophylaxis: mechanical ordered (SCDs) Hospitalist MIPS Advance Care Plan I have confirmed that the patient's Advanced Care Plan is present, code status is documented, or surrogate decision maker is listed in patient medical record.: Yes Medication Reconciliation I have utilized all available resources to obtain, update and review the patients current medications (includes all prescriptions, OTC, herbals, cannabis, and nutritional supplements).: Yes
[2024-11-02] MEDS: MAGNESIUM SULF 4 GM/WATER100ML 4 GM/100 ML BAG IVPB (04:55)
[2024-11-02 08:17] LABS: Magnesium 2.6 mg/dL (1.6-2.3)
[2024-11-02 09:25] LABS: Folic Acid 5.5 ng/mL (2.76->20)
[2024-11-02] MEDS: carvediloL 12.5 MG TABLET PO ×2 (09:56→21:24)
[2024-11-02] MEDS: FOLIC ACID 1 MG TABLET PO (09:56)
[2024-11-02] MEDS: MULTIVITAMINS THERAPEUTIC TAB (*BKC) 1 TABLET PO (09:56)
[2024-11-02] MEDS: THIAMINE HCL 100 MG TABLET PO (09:56)
[2024-11-02] MEDS: DICLOFENAC SOD 75 MG TABLET.EC PO ×2 (09:56→21:24)
[2024-11-02] MEDS: lisinopriL 20 MG TABLET PO (09:56)
[2024-11-02 09:59] LABS: Anion Gap 11 mmol/L (4-12); Blood Urea Nitrogen 13 mg/dL (9-20); Calcium 9.1 mg/dL (8.4-10.2); Carbon Dioxide 22 mmol/L (22-30); Chloride 93 mmol/L (98-107); Estimated CRCL calculation 92 ml/min; Estimated Glomerular Filt Rate > 60; Glucose 98 mg/dL (65-110); Potassium 4.4 mmol/L (3.4-5.0); Sodium 126 mmol/L (137-145)
[2024-11-02] MEDS: diazePAM (*CRX) 5 MG TABLET PO ×2 (10:00→16:41)
--- NOTE | 2024-11-02 12:33 | P.CONNEU_ITS ---
Assessment and Plan Assessment and plan (1) Altered mental status: Code(s): R41.82 - Altered mental status, unspecified Status: Acute (2) Heavy alcohol consumption: Code(s): F10.90 - Alcohol use, unspecified, uncomplicated Status: Acute Plan Since the patient unable to cooperate it is difficult to draw any definitive conclusions regarding the mental status and this will require some further follow-up. MRI of the brain is pending. CT angiogram of the head and neck also included CT scan of brain did not show any significant abnormalities. Magnesium level was 2.6 and is normal. I shall check his serum B1 and vitamin-D levels. Clinical follow-up is recommended and we should follow the results of MRI and EEG. depending upon his progress further decisions can be made with regards to investigations and management. Consult date: 11/02/24 HPI: Robert Naylor is a 69 year old male With history of changes in mental status was seen for initial neurological evaluation. Patient is uncooperative and does not respond to verbal commands although is sitting in a chair. He appears drowsy. According to the nursing staff he normally does not talk very much. There is history of alcohol drinking and peripheral neuropathy and his memory has declined over the past year please been complaining of headache in the on and off. His the blood test has shown serum sodium was low at 129 and viral screen was negative. The patient has asked for Valium. Her urine was already positive for benzodiazepine. CT angiogram of the head and neck did not show any significant abnormalities. An MRI of the brain has been requested. A CT scan of the cervical spin shows arthritic changes but no fracture or subluxation. History is obtained means knee from the review of the records the patient himself does not seem to be very cooperative at this timee Review of Systems 2 Review of Systems: ROS unobtainable: Yes unobtainable due to mental status [facility] Past Medical History Medical History (Updated 11/02/24 @ 04:43 by Loretta Nelson DO) Chronic hyponatremia Heavy alcohol consumption Peripheral neuropathy Following lumbar surgery Anxiety Colon cancer (2008) Status post chemotherapy and surgical resection. Patient reports he has not had a screening colonoscopy since his colon cancer diagnosis HTN (hypertension) Surgical History Surgical History History of tonsillectomy and adenoidectomy Status post cataract extraction of both eyes with insertion of intraocular lens History of laminectomy L4-L5 History of bilateral knee replacement Left December 2019; Right November [address] Eris Jacobs Family History Family History Mother Hypertension Breast cancer Father , At age 49 COPD (chronic obstructive pulmonary disease) Sibling Drug overdose Social History Social History Social History: Patient lives with his of 46 years. He is retired from the [employer]. 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 He denies any history of tobacco use or illicit substance use. He does drink 6 beers night and has done so since his mid 20s. He and his raised 3 daughters and have 10 grandchildren in 2 great grandchildren. Code status: Full code Surrogate decision maker: Gila () Smoking status: Never smoker Second hand tobacco smoke exposure: Yes (father) Alcohol intake: current Drinks per week: 28 Alcohol use details: BEER Substance use: never Other substance usage details: 12-14 beers every evening. Last use: 01/13/2020 Do You Feel Safe in your Home?: Yes Lack of Transportation: No Lack of Food: Never True Current Housing: I Have Housing Concerned About Future Housing: No Difficulty Paying Gas/Electric Bills: No Difficulty Paying for Meds: No Currently Unemployed: No Education: High School Diploma/GED Difficulty w/ Childcare or Family Care: No Living arrangements: with family Additional living arrangements comments: Gender identity (if verbalized by the patient): Male Sexual Orientation (if Verbalized by the Patient): Straight or Heterosexual Spiritual care concerns: No Meds Home Medications and Allergies Home Medications ?Medication ?Instructions ?Recorded ?Confirmed ?Type multivitamin 1 tablet PO DAILY 10/15/19 11/02/24 History lisinopril 20 mg tablet 20 mg PO DAILY 01/14/20 11/02/24 History carvedilol 12.5 mg tablet 12.5 mg PO BID 12/05/20 11/02/24 History folic acid 1 mg tablet 1 mg PO DAILY #30 tabs 03/21/24 11/02/24 Rx thiamine HCl (vitamin B1) 100 mg 100 mg PO DAILY #30 tabs 03/21/24 11/02/24 Rx tablet diazepam 5 mg tablet 5 mg PO TID PRN anxiety 11/02/24 11/02/24 History diclofenac sodium 75 mg 75 mg PO Q12H 11/02/24 11/02/24 History tablet,delayed release tadalafil 20 mg tablet 20 mg PO DAILY 11/02/24 11/02/24 History Allergies Allergy/AdvReac Type Severity Reaction Status Date / Time No Known Allergies Allergy Verified 03/20/24 00:49 Vital Signs Vital Signs - 24 hr 11/01/24 20:48 11/01/24 23:52 11/02/24 01:28 Temperature 98.9 F Pulse Rate 56 L 57 L 55 L Respiratory Rate 15 15 15 Blood Pressure 164/80 H 170/68 H 142/58 H Pulse Oximetry 100 97 98 Oxygen Delivery Room Air 11/02/24 05:12 11/02/24 09:46 Temperature 96.8 F L Pulse Rate 52 L Respiratory Rate 18 Blood Pressure 156/69 H Pulse Oximetry 100 Oxygen Delivery Room Air Exam 2 Narrative: patient is drowsy and does not respond to most of the questions has to and hence I am unable to determine his mental status reliably. Examination of cranial nerves motor and sensory systems also limited since he is unable to cooperate. I am unable to determine if he has any droopy eyes since he would not cooperate. He is however she did in a chair appears somewhat drowsy. Results Labs 11/01/24 20:58 11/02/24 07:47 Labs: Short CBC 11/01/24 Range/Units 20:58 WBC 5.3 (4.5-10.0) K/mm3 Hgb 13.8 L (14.0-18.0) g/dL Hct 41.2 L (42.0-52.0) % Plt Count 268 (150-375) k/mm3 BMP 11/01/24 11/02/24 20:58 07:47 Sodium 129 L 126 L Potassium 4.7 4.4 Chloride 94 L 93 L Carbon Dioxide 25 22 BUN 15 D 13 Creatinine 0.97 0.70 Glucose 99 98 Calcium 9.0 9.1 Cardiac Enzymes 11/01/24 Range/Units 20:58 Total Creatine Kinase 85 (55-170) U/L Troponin I < 0.012 (0.000-0.034) ng/mL Liver Function 11/01/24 Range/Units 20:58 Total Bilirubin 0.6 (0.2-1.3) mg/dL AST 28 (17-59) U/L ALT 24 (6-50) U/L Alkaline Phosphatase 53 (38-126) U/L Albumin 3.9 (3.5-5.1) g/dL Urine 11/01/24 Range/Units 21:02 Urine Color Yellow (Yellow) Urine Appearance Clear (Clear) Urine pH 6.0 (5.0-9.0) Ur Specific [place] 1.021 (1.001-1.035) Urine Protein Negative (Negative) mg/dL Urine Glucose (UA) Negative (Negative) mg/dL Imaging Attestation: I personally reviewed and interpreted this imaging study as follows: ( CT angiogram of the head and neck) My impression: no significant abnormalities
[2024-11-02] MEDS: chlordiazePOXIDE (*CRX) 25 MG CAPSULE PO ×2 (13:43→18:37)
[2024-11-02 13:46] LABS: Vitamin D 25 Hydroxy 81.1 ng/mL
--- NOTE | 2024-11-02 15:29 | PM.IMPN ---
Progress Note: A&P Assessment and Plan (1) Ptosis of eyelid, right: Code(s): H02.401 - Unspecified ptosis of right eyelid Status: Acute (2) Memory changes: Code(s): R41.3 - Other amnesia Status: Acute (3) Heavy alcohol consumption: Code(s): F10.90 - Alcohol use, unspecified, uncomplicated Status: Acute (4) Hypomagnesemia: Code(s): E83.42 - Hypomagnesemia Status: Acute (5) Anxiety: Code(s): F41.9 - Anxiety disorder, unspecified Status: Acute (6) Chronic hyponatremia: Code(s): E87.1 - Hypo-osmolality and hyponatremia Status: Acute Plan Patient has ptosis of the right eye, unsteady gait worsening from baseline, and possible deviation of the tongue to the right all findings are concerning for possible CVA. CT of the brain and CT of the brain and carotids were negative for acute process. MRI the brain with and without contrast has been ordered. Echocardiogram will with bubble study has been ordered. Will monitor patient on telemetry. Neurology has been consulted. Will continue to monitor neuro checks. Will check B12 and folic acid levels to rule out some component of vitamin deficiency causing neuropathy or gait disturbance. Patient does likely have peripheral neuropathy but I suspect it is more for multifactorial due to chronic alcohol use, prior back surgery and or idiopathic. Patient has had low magnesium levels during prior hospitalizations in is low again. Magnesium sulfate 4 g has been ordered. Patient may benefit from oral supplementation on discharge. Patient is report that they want the patient to have diazepam back for his anxiety. I suspect that his anxiety may have increased recently due to his memory difficulties and or the fact that he has cut back on alcohol. States that he has cut back on alcohol since his last hospitalization. However given his concern for acute neurologic changes I would like to avoid giving him assess of amounts of benzodiazepines. I will cut the benzodiazepines back to b.i.d. dosing. The patient would benefit from neuropsych evaluation and more appropriate treatment of his anxiety with SSRI or other such medication. patient presented drooping right high difficulty with ambulation, patient does have chronic back pain, knee and leg pain, concern patient may have CVA, CTA of the brain and neck are negative for any acute injury Cspine x-ray shows extensive OA, to further evaluate patient will have MRI of brain and orbits, patient will be seen by neurologist and further recommendations to follow, patient has history alcohol, he drinks daily for a longtime, concern for withdrawal will monitor with [facility] protocol. Will place PT and OT consult. Patient has been admitted as observation status. Subjective Date/time seen: 11/02/24 15:29 Interval history: Increased confusion, drooping right eye H&P-Narrative: 69-year-old male with a past medical history of essential hypertension, distant history of colon cancer status post bowel resection, heavy alcohol use and peripheral neuropathy of lower extremities who presented to the ER from home in the company of his family due to drooping of the right eye and increased confusion. The patient denied any memory issues. His reports that the patient's memory has been slipping for the last year. The patient is alert orient x3 but does not give me any history of why he has come to the hospital. He tells me to ask his here. His is at bedside and provides history. She states that the patient has been having memory issues for the last year. That the issues become worsen is usually worse at night. The patient noted drooping of the patient's right eyelid for the last 3 days and increasingly unsteady gait. The patient can get the eye partially open if he really strains. He still has normal for awaiting of his eyebrows. The patient denies any difficulty with his vision but he was having difficulty manipulating the remote to turn on and off the light in the room despite both I and his telling him which button to push. The patient did not seem to be able to either see her understand the print on the remote. He has been having intermittent headaches for a couple of months. He is having headaches about twice a day. His states that his headache usually gets better when he takes Tylenol. He is not able to give me much in the way of details about his headaches. He has not went to an eye doctor for an eye exam. The patient's feels patient has peripheral neuropathy. The patient states that he has not been able to feel his feet since he had back surgery several years ago. However his notes that his gait has been significantly worse over the last 3 days in the patient is actually started breaking down in using a walker that they have at home for her use. reports that she has been trying to get the patient in to see a neurologist for his neuropathy and for evaluation of his memory issues. The patient is adamant that he does not have memory issues but clearly has difficulty perform providing much history. At the time my evaluation when the patient stuck his tongue when asked the patient's did admit that she thinks is tongue is going to the right somewhat. Patient did not have difficulty with finger-nose testing but again had difficulty reaching for the TB remote and manipulating the remote. He was quite tremulous which he had been tremulous during my prior evaluation in at that time it was attributed to alcohol use or withdrawal. The patient reports that the patient has cut back on his alcohol use somewhat in is only drinking 2-3 beers a day instead of his prior 6. Patient has been taking thiamin and folic acid since his last hospitalization in March. In the ER, CT scan of the brain and CT of the brain and neck were negative for acute process. The patient's does report that the patient snores but she thinks that his snoring has improved in recent months. The patient and his state that they desperately needs the diazepam. They state that his anxiety is gotten markedly worse over recent months and he needs to volume to sleep. However when I arrived in the patient's room the patient was sleeping soundly. The patient's states that the patient will sit in hold his hands or arms over his face to try to block out the environment because he is so anxious. They state that he has been taking the diazepam at home but it has not been refilled since May 2024. They state that they are not getting the diazepam from any other source. patient presented drooping right high difficulty with ambulation, patient does have chronic back pain, knee and leg pain, concern patient may have CVA, CTA of the brain and neck are negative for any acute injury Cspine x-ray shows extensive OA, to further evaluate patient will have MRI of brain and orbits, patient will be seen by neurologist and further recommendations to follow, patient has history alcohol, he drinks daily for a longtime, concern for withdrawal will monitor with [facility] protocol. Exam Narrative: Patient is comfortable, NAD HEENT: Right eyelids are closed, left eyes is clear and none icteric LUNGS:CTA HEART: RR S1S2 ABD: BS+, Soft and nontender Lower extremities: no edema SKIN: nonjaundiced Neuro: grossly intact. Objective Data Vital Signs Vital Signs: Vital Signs - 24 hr 11/01/24 20:48 11/01/24 23:52 11/02/24 01:28 Temperature 37.2 C Pulse Rate 56 L 57 L 55 L Respiratory Rate 15 15 15 Blood Pressure 164/80 H 170/68 H 142/58 H Pulse Oximetry 100 97 98 Oxygen Delivery Room Air 11/02/24 05:12 11/02/24 09:46 11/02/24 14:00 Temperature 36.0 C L 36.6 C Pulse Rate 52 L 55 L Respiratory Rate 18 16 Blood Pressure 156/69 H 115/74 Pulse Oximetry 100 97 Oxygen Delivery Room Air Intake/Output Intake/Output: Intake & Output 10/30/24 10/31/24 11/01/24 11/02/24 23:59 23:59 23:59 23:59 Intake Total 580 Balance 580 Meds/Results Medications: Active Medications Generic Name Dose Route Start Last Admin Trade Name Freq PRN Reason Stop Dose Admin Acetaminophen 650 mg 11/02/24 00:58 Acetaminophen 325 Mg Tablet PO Q4H PRN Mild Pain (1-3) or Fever Carvedilol 12.5 mg 11/02/24 09:00 11/02/24 09:56 Carvedilol 12.5 Mg Tablet PO 12.5 mg Q12HR FRANCY Administration Chlordiazepoxide HCl 25 mg 11/02/24 12:00 Chlordiazepoxide (*Crx) 25 Mg Capsule PO Q6HR FRANCY Diazepam 5 mg 11/02/24 08:06 11/02/24 10:00 Diazepam (*Crx) 5 Mg Tablet PO 5 mg BID PRN Administration anxiety Diclofenac Sodium 75 mg 11/02/24 09:00 11/02/24 09:56 Diclofenac Sod 75 Mg Tablet.Ec PO 75 mg Q12HR FRANCY Administration Folic Acid 1 mg 11/02/24 09:00 11/02/24 09:56 Folic Acid 1 Mg Tablet PO 1 mg DAILY FRANCY Administration Lisinopril 20 mg 11/02/24 09:00 11/02/24 09:56 Lisinopril 20 Mg Tablet PO 20 mg DAILY FRANCY Administration Multivitamins Therapeutic 1 tablet 11/02/24 09:00 11/02/24 09:56 Multivitamins Therapeutic Tab (*Bkc) PO 1 tablet DAILY FRANCY Administration Ondansetron HCl 4 mg 11/02/24 00:58 Ondansetron Inj 4 Mg/2 Ml Vial IV PUSH Q4H PRN Nausea Thiamine HCl 100 mg 11/02/24 09:00 11/02/24 09:56 Thiamine Hcl 100 Mg Tablet PO 100 mg DAILY FRANCY Administration Radiology Results: ITS Impressions Chest X-Ray 11/02/24 06:05 Impression: Clear lungs. Cardiomegaly. Cervical Spine CT 11/02/24 06:08 Impression: No fracture or subluxation of the cervical spine. Extensive degenerative change, as above. Head/Neck CTA 11/02/24 06:14 Impression: No significant abnormality. Labs Labs: Laboratory Results - last 24 hr 11/01/24 11/01/24 11/01/24 20:58 21:02 22:42 WBC 5.3 RBC 4.51 L Hgb 13.8 L Hct 41.2 L MCV 91.4 MCH 30.6 MCHC 33.5 RDW 12.4 Plt Count 268 MPV 8.6 Immature Gran % (Auto) 0.0 Neut % (Auto) 60.1 Lymph % (Auto) 21.6 [place] % (Auto) 12.4 H Eos % (Auto) 5.3 H Baso % (Auto) 0.6 Lymph # (Auto) 1.15 [place] # (Auto) 0.7 H Eos # (Auto) 0.3 Baso # (Auto) 0.0 Abs Immat Gran (auto) 0.00 Absolute Neuts (auto) 3.2 Absolute Nucleated RBC 0.000 Nucleated RBC % 0.0 PT 14.5 INR 1.1 APTT 27.6 Sodium 129 L Potassium 4.7 Chloride 94 L Carbon Dioxide 25 Anion Gap 10 BUN 15 D Creatinine 0.97 Estim Creat Clear Calc 68 Estimated GFR > 60 Glucose 99 Lactic Acid 0.9 Calcium 9.0 Magnesium 1.5 L Total Bilirubin 0.6 AST 28 ALT 24 Alkaline Phosphatase 53 Ammonia < 9 L Total Creatine Kinase 85 Troponin I < 0.012 NT-Pro-B Natriuret Pep 372 H Total Protein 6.0 L Albumin 3.9 Vitamin B12 Vitamin D 25-Hydroxy Folate TSH 2.400 Urine Color Yellow Urine Appearance Clear Urine pH 6.0 Ur Specific [place] 1.021 Urine Protein Negative Urine Glucose (UA) Negative Urine Ketones Trace H Ur Blood (Man) Negative Urine Nitrate Negative Urine Bilirubin Negative Urine Urobilinogen 1.0 Leukocyte Esterase Rfl Negative Salicylates < 1.0 L Urine Opiates Screen Negative Urine Methadone Screen Negative Acetaminophen < 10 L Ur Barbiturates Screen Negative Ur Phencyclidine Scrn Negative Ur Amphetamine Screen Negative U Benzodiazepines Scrn Positive A Urine Cocaine Screen Negative U Cannabinoids Screen Negative Ethyl Alcohol < 10 Influenza A (RT-PCR) Influenza B (RT-PCR) RSV (RT-PCR) SARS-CoV-2 RNA (RT-PCR) 11/01/24 11/02/24 11/02/24 23:47 07:47 12:50 WBC RBC Hgb Hct MCV MCH MCHC RDW Plt Count MPV Immature Gran % (Auto) Neut % (Auto) Lymph % (Auto) [place] % (Auto) Eos % (Auto) Baso % (Auto) Lymph # (Auto) [place] # (Auto) Eos # (Auto) Baso # (Auto) Abs Immat Gran (auto) Absolute Neuts (auto) Absolute Nucleated RBC Nucleated RBC % PT INR APTT Sodium 126 L Potassium 4.4 Chloride 93 L Carbon Dioxide 22 Anion Gap 11 BUN 13 Creatinine 0.70 Estim Creat Clear Calc 92 Estimated GFR > 60 Glucose 98 Lactic Acid Calcium 9.1 Magnesium 2.6 H Total Bilirubin AST ALT Alkaline Phosphatase Ammonia Total Creatine Kinase Troponin I NT-Pro-B Natriuret Pep Total Protein Albumin Vitamin B12 554.0 Vitamin D 25-Hydroxy 81.1 Folate 5.5 TSH Urine Color Urine Appearance Urine pH Ur Specific [place] Urine Protein Urine Glucose (UA) Urine Ketones Ur Blood (Man) Urine Nitrate Urine Bilirubin Urine Urobilinogen Leukocyte Esterase Rfl Salicylates Urine Opiates Screen Urine Methadone Screen Acetaminophen Ur Barbiturates Screen Ur Phencyclidine Scrn Ur Amphetamine Screen U Benzodiazepines Scrn Urine Cocaine Screen U Cannabinoids Screen Ethyl Alcohol Influenza A (RT-PCR) Negative Influenza B (RT-PCR) Negative RSV (RT-PCR) Negative SARS-CoV-2 RNA (RT-PCR) Negative Quality VTE Prophylaxis VTE prophylaxis: mechanical ordered (SCDs)
--- NOTE | 2024-11-02 17:36 | PC.NURSE ---
Order for MRI changed to include orbitz, MRI equipment scheduled to be fixed 11/03/24, rescheduled and Dr. Hernandez notifyed, continue to monitor patient and nuero checks
[2024-11-03] VITALS (10 sets, daily range): BP systolic 118–151; BP diastolic 67–71; PULSE 50–63; RESP 14–18; TEMP 36.2–36.7; O2SAT 93–98
[2024-11-03] MEDS: chlordiazePOXIDE (*CRX) 25 MG CAPSULE PO ×5 (00:40→23:36)
[2024-11-03 06:41] LABS: Hematocrit 43.3 % (42.0-52.0); Hemoglobin 14.4 g/dL (14.0-18.0); Mean Corpuscular HGB Conc 33.3 g/dl (32-36); Mean Corpuscular Volume 93.3 fl (80-100); Mean Platelet Volume 8.9 fl (7.4-10.4); Platelet Count Result 285 k/mm3 (150-375); Red Blood Count 4.64 M/mm3 (4.6-6.20); Red Cell Distribution Width 12.8 % (11.5-14.5); White Blood Count 9.3 K/mm3 (4.5-10.0)
[2024-11-03 07:05] LABS: Anion Gap 10 mmol/L (4-12); Blood Urea Nitrogen 18 mg/dL (9-20); Carbon Dioxide 23 mmol/L (22-30); Chloride 96 mmol/L (98-107); Estimated CRCL calculation 76 ml/min; Estimated Glomerular Filt Rate > 60; Glucose 86 mg/dL (65-110); Magnesium 2.1 mg/dL (1.6-2.3); Potassium 4.4 mmol/L (3.4-5.0); Sodium 129 mmol/L (137-145)
[2024-11-03] MEDS: THIAMINE HCL 100 MG TABLET PO (09:21)
[2024-11-03] MEDS: lisinopriL 20 MG TABLET PO (09:21)
[2024-11-03] MEDS: carvediloL 12.5 MG TABLET PO ×2 (09:21→20:44)
[2024-11-03] MEDS: DICLOFENAC SOD 75 MG TABLET.EC PO ×2 (09:22→20:44)
[2024-11-03] MEDS: FOLIC ACID 1 MG TABLET PO (09:22)
[2024-11-03] MEDS: MULTIVITAMINS THERAPEUTIC TAB (*BKC) 1 TABLET PO (09:22)
--- NOTE | 2024-11-03 11:35 | PCPTNOTE ---
The patient treatment was not able to be completed at this time due to patient having bedside EEG. Will plan to continue treatment per plan of care.
[2024-11-03 11:58] LABS: Glucose Point of Care 137 mg/dl (65-105)
[2024-11-03] MEDS: diazePAM (*CRX) 5 MG TABLET PO (14:26)
--- NOTE | 2024-11-03 15:18 | P.PNIM_ITS ---
Progress Note: A&P Assessment and Plan (1) Ptosis of eyelid, right: Code(s): H02.401 - Unspecified ptosis of right eyelid Status: Acute (2) Memory changes: Code(s): R41.3 - Other amnesia Status: Acute (3) Heavy alcohol consumption: Code(s): F10.90 - Alcohol use, unspecified, uncomplicated Status: Acute (4) Hypomagnesemia: Code(s): E83.42 - Hypomagnesemia Status: Acute (5) Anxiety: Code(s): F41.9 - Anxiety disorder, unspecified Status: Acute (6) Chronic hyponatremia: Code(s): E87.1 - Hypo-osmolality and hyponatremia Status: Acute Plan Patient has ptosis of the right eye, unsteady gait worsening from baseline, and possible deviation of the tongue to the right all findings are concerning for possible CVA. CT of the brain and CT of the brain and carotids were negative for acute process. MRI the brain with and without contrast has been ordered. Echocardiogram will with bubble study has been ordered. Will monitor patient on telemetry. Neurology has been consulted. Will continue to monitor neuro checks. Will check B12 and folic acid levels to rule out some component of vitamin deficiency causing neuropathy or gait disturbance. Patient does likely have peripheral neuropathy but I suspect it is more for multifactorial due to chronic alcohol use, prior back surgery and or idiopathic. Patient has had low magnesium levels during prior hospitalizations in is low again. Magnesium sul fate 4 g has been ordered. Patient may benefit from oral supplementation on discharge. Patient is report that they want the patient to have diazepam back for his anxiety. I suspect that his anxiety may have increased recently due to his memory difficulties and or the fact that he has cut back on alcohol. States that he has cut back on alcohol since his last hospitalization. However given his concern for acute neurologic changes I would like to avoid giving him assess of amounts of benzodiazepines. I will cut the benzodiazepines back to b.i.d. dosing. The patient would benefit from neuropsych evaluation and more appropriate treatment of his anxiety with SSRI or other such medication. patient presented drooping right high difficulty with ambulation, patient does have chronic back pain, knee and leg pain, concern patient may have CVA, CTA of the brain and neck are negative for any acute injury Cspine x-ray shows extensive OA, to further evaluate patient will have MRI of brain and orbits, patient will be seen by neurologist and further recommendations to follow, patient has history alcohol, he drinks daily for a longtime, concern for withdrawal will monitor with [facility] protocol. Will place PT and OT consult. Patient has been admitted as observation status. Subjective Date/time seen: 11/03/24 15:18 Interval history: Increased confusion, drooping right eye H&P-Narrative: 69-year-old male with a past medical history of essential hypertension, distant history of colon cancer status post bowel resection, heavy alcohol use and peripheral neuropathy of lower extremities who presented to the ER from home in the company of his family due to drooping of the right eye and increased confusion. The patient denied any memory issues. His reports that the patient's memory has been slipping for the last year. The patient is alert orient x3 but does not give me any history of why he has come to the hospital. He tells me to ask his here. His is at bedside and provides history. She states that the patient has been having memory issues for the last year. That the issues become worsen is usually worse at night. The patient noted drooping of the patient's right eyelid for the last 3 days and increasingly unsteady gait. The patient can get the eye partially open if he really strains. He still has normal for awaiting of his eyebrows. The patient denies any difficulty with his vision but he was having difficulty manipulating the remote to turn on and off the light in the room despite both I and his telling him which button to push. The patient did not seem to be able to either see her understand the print on the remote. He has been having intermittent headaches for a couple of months. He is having headaches about twice a day. His states that his headache usually gets better when he takes Tylenol. He is not able to give me much in the way of details about his headaches. He has not went to an eye doctor for an eye exam. The patient's feels patient has peripheral neuropathy. The patient states that he has not been able to feel his feet since he had back surgery several years ago. However his notes that his gait has been significantly worse over the last 3 days in the patient is actually started breaking down in using a walker that they have at home for her use. reports that she has been trying to get the patient in to see a neuro logist for his neuropathy and for evaluation of his memory issues. The patient is adamant that he does not have memory issues but clearly has difficulty perform providing much history. At the time my evaluation when the patient stuck his tongue when asked the patient's did admit that she thinks is tongue is going to the right somewhat. Patient did not have difficulty with finger-nose testing but again had difficulty reaching for the TB remote and manipulating the remote. He was quite tremulous which he had been tremulous during my prior evaluation in at that time it was attributed to alcohol use or withdrawal. The patient reports that the patient has cut back on his alcohol use somewhat in is only drinking 2-3 beers a day instead of his prior 6. Patient has been taking thiamin and folic acid since his last hospitalization in March. In the ER, CT scan of the brain and CT of the brain and neck were negative for acute process. The patient's does report that the patient snores but she thinks that his snoring has improved in recent months. The patient and his state that they desperately needs the diazepam. They state that his anxiety is gotten markedly worse over recent months and he needs to volume to sleep. However when I arrived in the patient's room the patient was sleeping soundly. The patient's states that the patient will sit in hold his hands or arms over his face to try to block out the environment because he is so anxious. They state that he has been taking the diazepam at home but it has not been refilled since May 2024. They state that they are not getting the diazepam from any other source. today patient is able to open his right eye, still has difficulty with ambulation, patient does have chronic back pain, knee and leg pain, concern patient may have CVA, CTA of the brain and neck are negative for any acute injury Cspine x-ray shows extensive OA, to further evaluate patient will have MRI of brain and orbits which is pending due to mechanical problem with MRI Machine, patient was seen by neurologist and recommended MRI of the brain and eye and as well EEG, patient has history alcohol, he drinks daily for a longtime, concern for withdrawal will monitor with [facility] protocol patient remains stable does not show any sign of alcohol withdrawal. Exam Narrative: Patient is comfortable, NAD HEENT: Right eyelids are more open today, left eyes is clear and none icteric LUNGS:CTA HEART: RR S1S2 ABD: BS+, Soft and nontender Lower extremities: no edema SKIN: nonjaundiced Neuro: grossly intact. Objective Data Vital Signs Vital Signs: Vital Signs - 24 hr 11/02/24 20:00 11/02/24 20:00 11/02/24 21:20 Temperature 37.0 C Pulse Rate 51 L 53 L Pulse Rate [Pedal (Dorsalis Pedis)] 51 L Respiratory Rate 18 Blood Pressure 154/90 H Pulse Oximetry 98 Oxygen Delivery 11/03/24 00:00 11/03/24 03:48 11/03/24 03:48 Temperature Pulse Rate 58 L Pulse Rate [Pedal (Dorsalis Pedis)] 50 L 58 L Respiratory Rate Blood Pressure Pulse Oximetry Oxygen Delivery 11/03/24 05:50 11/03/24 08:00 11/03/24 08:00 Temperature 36.4 C L Pulse Rate 61 57 L Pulse Rate [Pedal (Dorsalis Pedis)] Respiratory Rate 18 Blood Pressure 151/71 H Pulse Oximetry 98 Oxygen Delivery Room Air 11/03/24 08:47 11/03/24 09:21 11/03/24 14:00 Temperature 36.2 C L Pulse Rate 62 57 L Pulse Rate [Pedal (Dorsalis Pedis)] Respiratory Rate 14 Blood Pressure 118/71 Pulse Oximetry 93 98 Oxygen Delivery Room Air Intake/Output Intake/Output: Intake & Output 10/31/24 11/01/24 11/02/24 11/03/24 23:59 23:59 23:59 23:59 Intake Total 820 560 Output Total 400 450 Balance 420 110 Meds/Results Medications: Active Medications Generic Name Dose Route Start Last Admin Trade Name Freq PRN Reason Stop Dose Admin Acetaminophen 650 mg 11/02/24 00:58 Acetaminophen 325 Mg Tablet PO Q4H PRN Mild Pain (1-3) or Fever Carvedilol 12.5 mg 11/02/24 09:00 11/03/24 09:21 Carvedilol 12.5 Mg Tablet PO 12.5 mg Q12HR FRANCY Administration Chlordiazepoxide HCl 25 mg 11/02/24 12:00 11/03/24 12:05 Chlordiazepoxide (*Crx) 25 Mg Capsule PO 25 mg Q6HR FRANCY Administration Diazepam 5 mg 11/02/24 08:06 11/03/24 14:26 Diazepam (*Crx) 5 Mg Tablet PO 5 mg BID PRN Administration anxiety Diclofenac Sodium 75 mg 11/02/24 09:00 11/03/24 09:22 Diclofenac Sod 75 Mg Tablet.Ec PO 75 mg Q12HR FRANCY Administration Folic Acid 1 mg 11/02/24 09:00 11/03/24 09:22 Folic Acid 1 Mg Tablet PO 1 mg DAILY FRANCY Administration Lisinopril 20 mg 11/02/24 09:00 11/03/24 09:21 Lisinopril 20 Mg Tablet PO 20 mg DAILY FRANCY Administration Multivitamins Therapeutic 1 tablet 11/02/24 09:00 11/03/24 09:22 Multivitamins Therapeutic Tab (*Bkc) PO 1 tablet DAILY FRANCY Administration Ondansetron HCl 4 mg 11/02/24 00:58 Ondansetron Inj 4 Mg/2 Ml Vial IV PUSH Q4H PRN Nausea Thiamine HCl 100 mg 11/02/24 09:00 11/03/24 09:21 Thiamine Hcl 100 Mg Tablet PO 100 mg DAILY FRANCY Administration Radiology Results: ITS Impressions Chest X-Ray 11/02/24 06:05 Impression: Clear lungs. Cardiomegaly. Cervical Spine CT 11/02/24 06:08 Impression: No fracture or subluxation of the cervical spine. Extensive degenerative change, as above. Head/Neck CTA 11/02/24 06:14 Impression: No significant abnormality. Labs Labs: Laboratory Results - last 24 hr 11/03/24 11/03/24 05:43 11:56 WBC 9.3 RBC 4.64 Hgb 14.4 Hct 43.3 MCV 93.3 MCH 31.0 MCHC 33.3 RDW 12.8 Plt Count 285 MPV 8.9 Sodium 129 L Potassium 4.4 Chloride 96 L Carbon Dioxide 23 Anion Gap 10 BUN 18 Creatinine 0.85 Estim Creat Clear Calc 76 Estimated GFR > 60 Glucose 86 POC Capillary Glucose 137 H Calcium 9.0 Magnesium 2.1 Quality VTE Prophylaxis VTE prophylaxis: mechanical ordered (SCDs)
[2024-11-03 18:12] LABS: Glucose Point of Care 143 mg/dl (65-105)
[2024-11-03 23:40] LABS: Glucose Point of Care 84 mg/dl (65-105)
[2024-11-04] VITALS (7 sets, daily range): BP systolic 128–136; BP diastolic 67–78; PULSE 58–66; RESP 16–17; TEMP 36.5–36.6; O2SAT 96–97
[2024-11-04] MEDS: diazePAM (*CRX) 5 MG TABLET PO ×2 (03:51→12:13)
[2024-11-04] MEDS: chlordiazePOXIDE (*CRX) 25 MG CAPSULE PO ×2 (05:36→12:13)
[2024-11-04 05:45] LABS: Glucose Point of Care 96 mg/dl (65-105)
[2024-11-04 06:48] LABS: Hematocrit 43.1 % (42.0-52.0); Hemoglobin 14.2 g/dL (14.0-18.0); Mean Corpuscular HGB Conc 32.9 g/dl (32-36); Mean Corpuscular Hemoglobin 30.8 pg (26-34); Mean Corpuscular Volume 93.5 fl (80-100); Platelet Count Result 281 k/mm3 (150-375); Red Blood Count 4.61 M/mm3 (4.6-6.20); Red Cell Distribution Width 12.9 % (11.5-14.5); White Blood Count 5.7 K/mm3 (4.5-10.0)
[2024-11-04] MEDS: carvediloL 12.5 MG TABLET PO (09:02)
[2024-11-04] MEDS: MULTIVITAMINS THERAPEUTIC TAB (*BKC) 1 TABLET PO (09:02)
[2024-11-04] MEDS: lisinopriL 20 MG TABLET PO (09:02)
[2024-11-04] MEDS: THIAMINE HCL 100 MG TABLET PO (09:02)
[2024-11-04] MEDS: DICLOFENAC SOD 75 MG TABLET.EC PO (09:02)
[2024-11-04] MEDS: FOLIC ACID 1 MG TABLET PO (09:02)
[2024-11-04 10:10] LABS: Anion Gap 11 mmol/L (4-12); Blood Urea Nitrogen 18 mg/dL (9-20); Calcium 8.9 mg/dL (8.4-10.2); Carbon Dioxide 21 mmol/L (22-30); Chloride 98 mmol/L (98-107); Estimated CRCL calculation 73 ml/min; Estimated Glomerular Filt Rate > 60; Glucose 83 mg/dL (65-110); Potassium 4.4 mmol/L (3.4-5.0); Sodium 130 mmol/L (137-145)
--- NOTE | 2024-11-04 11:37 | WPDNEUROLOGY ---
Neurology EEG Report General Information Date of Study: 11/03/24 TEST eeg DIAGNOSIS Altered mental status CONDITION OF RECORDING awake ,drowsy and asleep. EEG NUMBER [id number] CLINICAL HISTORY patient herself does not know why he is here in the hospital. He denies loss of consciousness of confusion. EEG DESCRIPTION Basic resting occipital frequency consists of low to medium voltage 8 to 10 hertz per 2nd alpha admixed with low-voltage 15 to 18 hertz per 2nd beta activity. Alpha activity is symmetrical blocking with the eyes opening. Good anteroposterior gradient is noted. Low-voltage beta activity seen admixed with low-voltage alpha activity during drowsiness. Bilateral symmetrical sleep activity seen during sleep with symmetrical sleep spindles. Hyperventilation not done. Photic stimulation not done. Non paroxysmal. Nonfocal. Head nonlateralizing. IMPRESSION Normal record.
[2024-11-04 12:06] LABS: Glucose Point of Care 112 mg/dl (65-105)
--- NOTE | 2024-11-04 15:56 | P.PNIM_ITS ---
Progress Note: A&P Assessment and Plan (1) Ptosis of eyelid, right: Code(s): H02.401 - Unspecified ptosis of right eyelid Status: Acute (2) Memory changes: Code(s): R41.3 - Other amnesia Status: Acute (3) Heavy alcohol consumption: Code(s): F10.90 - Alcohol use, unspecified, uncomplicated Status: Acute (4) Hypomagnesemia: Code(s): E83.42 - Hypomagnesemia Status: Acute (5) Anxiety: Code(s): F41.9 - Anxiety disorder, unspecified Status: Acute (6) Chronic hyponatremia: Code(s): E87.1 - Hypo-osmolality and hyponatremia Status: Acute Plan Patient has ptosis of the right eye, unsteady gait worsening from baseline, and possible deviation of the tongue to the right all findings are concerning for possible CVA. CT of the brain and CT of the brain and carotids were negative for acute process. MRI the brain with and without contrast has been ordered. Echocardiogram will with bubble study has been ordered. Will monitor patient on telemetry. Neurology has been consulted. Will continue to monitor neuro checks. Will check B12 and folic acid levels to rule out some component of vitamin deficiency causing neuropathy or gait disturbance. Patient does likely have peripheral neuropathy but I suspect it is more for multifactorial due to chronic alcohol use, prior back surgery and or idiopathic. Patient has had low magnesium levels during prior hospitalizations in is low again. Magnesium sul fate 4 g has been ordered. Patient may benefit from oral supplementation on discharge. Patient is report that they want the patient to have diazepam back for his anxiety. I suspect that his anxiety may have increased recently due to his memory difficulties and or the fact that he has cut back on alcohol. States that he has cut back on alcohol since his last hospitalization. However given his concern for acute neurologic changes I would like to avoid giving him assess of amounts of benzodiazepines. I will cut the benzodiazepines back to b.i.d. dosing. The patient would benefit from neuropsych evaluation and more appropriate treatment of his anxiety with SSRI or other such medication. today patient is able to open his right eye, still has difficulty with ambulation, patient does have chronic back pain, knee and leg pain, concern patient may have CVA, CTA of the brain and neck are negative for any acute injury Cspine x-ray shows extensive OA, to further evaluate patient will have MRI of brain and orbits which is pending due to mechanical problem with MRI Machine, patient was seen by neurologist and recommended MRI of the brain is normal and EEG as well and MRI of orbits is pending, he is clinically improvig and right eye ptosis has improved patient has history alcohol, he drinks daily for a longtime, concern for withdrawal will monitor with [facility] protocol patient remains stable does not show any sign of alcohol withdrawal. Will place PT and OT consult. Patient has been admitted as observation status. Subjective Date/time seen: 11/04/24 15:56 Interval history: Increased confusion, drooping right eye H&P-Narrative: 69-year-old male with a past medical history of essential hypertension, distant history of colon cancer status post bowel resection, heavy alcohol use and peripheral neuropathy of lower extremities who presented to the ER from home in the company of his family due to drooping of the right eye and increased confusion. The patient denied any memory issues. His reports that the pa devante's memory has been slipping for the last year. The patient is alert orient x3 but does not give me any history of why he has come to the hospital. He tells me to ask his here. His is at bedside and provides history. She states that the patient has been having memory issues for the last year. That the issues become worsen is usually worse at night. The patient noted drooping of the patient's right eyelid for the last 3 days and increasingly unsteady gait. The patient can get the eye partially open if he really strains. He still has normal for awaiting of his eyebrows. The patient denies any difficulty with his vision but he was having difficulty manipulating the remote to turn on and off the light in the room despite both I and his telling him which button to push. The patient did not seem to be able to either see her understand the print on the remote. He has been having intermittent headaches for a couple of months. He is having headaches about twice a day. His states that his headache usually gets better when he takes Tylenol. He is not able to give me much in the way of details about his headaches. He has not went to an eye doctor for an eye exam. The patient's feels patient has peripheral neuropathy. The patient states that he has not been able to feel his feet since he had back surgery several years ago. However his notes that his gait has been significantly worse over the last 3 days in the patient is actually started breaking down in using a walker that they have at home for her use. reports that she has been trying to get the patient in to see a neurologist for his neuropathy and for evaluation of his memory issues. The patient is adamant that he does not have memory issues but clearly has di fficulty perform providing much history. At the time my evaluation when the patient stuck his tongue when asked the patient's did admit that she thinks is tongue is going to the right somewhat. Patient did not have difficulty with finger-nose testing but again had difficulty reaching for the TB remote and manipulating the remote. He was quite tremulous which he had been tremulous during my prior evaluation in at that time it was attributed to alcohol use or withdrawal. The patient reports that the patient has cut back on his alcohol use somewhat in is only drinking 2-3 beers a day instead of his prior 6. Patient has been taking thiamin and folic acid since his last hospitalization in March. In the ER, CT scan of the brain and CT of the brain and neck were negative for acute process. The patient's does report that the patient snores but she thinks that his snoring has improved in recent months. The patient and his state that they desperately needs the diazepam. They state that his anxiety is gotten markedly worse over recent months and he needs to volume to sleep. However when I arrived in the patient's room the patient was sleeping soundly. The patient's states that the patient will sit in hold his hands or arms over his face to try to block out the environment because he is so anxious. They state that he has been taking the diazepam at home but it has not been refilled since May 2024. They state that they are not getting the diazepam from any other source. today patient is able to open his right eye, still has difficulty with am bulation, patient does have chronic back pain, knee and leg pain, concern patient may have CVA, CTA of the brain and neck are negative for any acute injury Cspine x-ray shows extensive OA, to further evaluate patient will have MRI of brain and orbits which is pending due to mechanical problem with MRI Machine, patient was seen by neurologist and recommended MRI of the brain is normal and EEG as well and MRI of orbits is pending, he is clinically improvig and right eye ptosis has improved patient has history alcohol, he drinks daily for a longtime, concern for withdrawal will monitor with [facility] protocol patient remains stable does not show any sign of alcohol withdrawal. Exam Narrative: Patient is comfortable, NAD HEENT: Right eyelids are more open today, left eyes is clear and none icteric LUNGS:CTA HEART: RR S1S2 ABD: BS+, Soft and nontender Lower extremities: no edema SKIN: nonjaundiced Neuro: grossly intact. Objective Data Vital Signs Vital Signs: Vital Signs - 24 hr 11/03/24 20:00 11/03/24 20:00 11/03/24 20:00 Temperature Pulse Rate 63 61 Pulse Rate [Pedal (Dorsalis Pedis)] 58 L Respiratory Rate 17 Blood Pressure 128/67 Pulse Oximetry 97 Oxygen Delivery Room Air 11/03/24 20:28 11/03/24 20:44 11/04/24 00:00 Temperature 36.7 C Pulse Rate 57 L 63 Pulse Rate [Pedal (Dorsalis Pedis)] 58 L Respiratory Rate 17 Blood Pressure 128/67 128/67 Pulse Oximetry 97 Oxygen Delivery 11/04/24 00:00 11/04/24 04:00 11/04/24 04:00 Temperature Pulse Rate 64 66 Pulse Rate [Pedal (Dorsalis Pedis)] 58 L Respiratory Rate Blood Pressure 128/67 Pulse Oximetry Oxygen Delivery 11/04/24 05:46 11/04/24 08:00 11/04/24 09:02 Temperature 36.6 C Pulse Rate 62 64 Pulse Rate [Pedal (Dorsalis Pedis)] Respiratory Rate 17 Blood Pressure 130/78 Pulse Oximetry 97 Oxygen Delivery Room Air 11/04/24 14:00 Temperature 36.5 C Pulse Rate 63 Pulse Rate [Pedal (Dorsalis Pedis)] Respiratory Rate 16 Blood Pressure 136/77 Pulse Oximetry 96 Oxygen Delivery Intake/Output Intake/Output: Intake & Output 11/01/24 11/02/24 11/03/24 11/04/24 23:59 23:59 23:59 23:59 Intake Total 820 800 240 Output Total 400 600 0 Balance 420 200 240 Meds/Results Medications: Active Medications Generic Name Dose Route Start Last Admin Trade Name Freq PRN Reason Stop Dose Admin Acetaminophen 650 mg 11/02/24 00:58 Acetaminophen 325 Mg Tablet PO Q4H PRN Mild Pain (1-3) or Fever Carvedilol 12.5 mg 11/02/24 09:00 11/04/24 09:02 Carvedilol 12.5 Mg Tablet PO 12.5 mg Q12HR FRANCY Administration Chlordiazepoxide HCl 25 mg 11/02/24 12:00 11/04/24 12:13 Chlordiazepoxide (*Crx) 25 Mg Capsule PO 25 mg Q6HR FRANCY Administration Diazepam 5 mg 11/02/24 08:06 11/04/24 12:13 Diazepam (*Crx) 5 Mg Tablet PO 5 mg BID PRN Administration anxiety Diclofenac Sodium 75 mg 11/02/24 09:00 11/04/24 09:02 Diclofenac Sod 75 Mg Tablet.Ec PO 75 mg Q12HR FRANCY Administration Folic Acid 1 mg 11/02/24 09:00 11/04/24 09:02 Folic Acid 1 Mg Tablet PO 1 mg DAILY FRANCY Administration Lisinopril 20 mg 11/02/24 09:00 11/04/24 09:02 Lisinopril 20 Mg Tablet PO 20 mg DAILY FRANCY Administration Multivitamins Therapeutic 1 tablet 11/02/24 09:00 11/04/24 09:02 Multivitamins Therapeutic Tab (*Bkc) PO 1 tablet DAILY FRANCY Administration Ondansetron HCl 4 mg 11/02/24 00:58 Ondansetron Inj 4 Mg/2 Ml Vial IV PUSH Q4H PRN Nausea Thiamine HCl 100 mg 11/02/24 09:00 11/04/24 09:02 Thiamine Hcl 100 Mg Tablet PO 100 mg DAILY FRANCY Administration Radiology Results: ITS Impressions Chest X-Ray 11/02/24 06:05 Impression: Clear lungs. Cardiomegaly. Cervical Spine CT 11/02/24 06:08 Impression: No fracture or subluxation of the cervical spine. Extensive degenerative change, as above. Head/Neck CTA 11/02/24 06:14 Impression: No significant abnormality. Brain MRI 11/03/24 15:49 IMPRESSION: 1. Normal aging brain. No acute intracranial process. Labs Labs: Laboratory Results - last 24 hr 11/03/24 11/03/24 11/04/24 18:10 23:31 05:14 WBC RBC Hgb Hct MCV MCH MCHC RDW Plt Count MPV Sodium Potassium Chloride Carbon Dioxide Anion Gap BUN Creatinine Estim Creat Clear Calc Estimated GFR Glucose POC Capillary Glucose 143 H 84 96 Calcium Magnesium 11/04/24 11/04/24 06:01 12:02 WBC 5.7 RBC 4.61 Hgb 14.2 Hct 43.1 MCV 93.5 MCH 30.8 MCHC 32.9 RDW 12.9 Plt Count 281 MPV 9.0 Sodium 130 L Potassium 4.4 Chloride 98 Carbon Dioxide 21 L Anion Gap 11 BUN 18 Creatinine 0.90 Estim Creat Clear Calc 73 Estimated GFR > 60 Glucose 83 POC Capillary Glucose 112 H Calcium 8.9 Magnesium 2.0 Quality VTE Prophylaxis VTE prophylaxis: mechanical ordered (SCDs)
--- NOTE | 2024-11-04 16:52 | P.DS_ITS ---
DS: Admitting Diagnosis Discharge Date 11/04/24 Admitting Diagnosis Increased confusion, drooping right eye DS: Discharge Diagnosis Discharge Diagnosis (1) Ptosis of eyelid, right: Code(s): H02.401 - Unspecified ptosis of right eyelid Status: Acute (2) Memory changes: Code(s): R41.3 - Other amnesia Status: Acute (3) Heavy alcohol consumption: Code(s): F10.90 - Alcohol use, unspecified, uncomplicated Status: Acute (4) Hypomagnesemia: Code(s): E83.42 - Hypomagnesemia Status: Acute (5) Anxiety: Code(s): F41.9 - Anxiety disorder, unspecified Status: Acute (6) Chronic hyponatremia: Code(s): E87.1 - Hypo-osmolality and hyponatremia Status: Acute DS: Summary Hospital Course Hospital Course: Patient has ptosis of the right eye, unsteady gait worsening from baseline, and possible deviation of the tongue to the right all findings are concerning for possible CVA. CT of the brain and CT of the brain and carotids were negative for acute process. MRI the brain with and without contrast has been ordered. Echocardiogram will with bubble study has been ordered. Will monitor patient on telemetry. Neurology has been consulted. Will continue to monitor neuro checks. Will check B12 and folic acid levels to rule out some component of vitamin deficiency causing neuropathy or gait disturbance. Patient does likely have peripheral neuropathy but I suspect it is more for multifactorial due to chronic alcohol use, prior back surgery and or idiopathic. Patient has had low magnesium levels during prior hospitalizations in is low again. Magnesium sulfate 4 g has been ordered. Patient may benefit from oral supplementation on discharge. Patient is report that they want the patient to have diazepam back for his anxiety. I suspect that his anxiety may have increased recently due to his memory difficulties and or the fact that he has cut back on alcohol. States that he has cut back on alcohol since his last hospitalization. However given his concern for acute neurologic changes I would like to avoid giving him assess of amounts of benzodiazepines. I will cut the benzodiazepines back to b.i.d. dosing. The patient would benefit from neuropsych evaluation and more appropriate treatment of his anxiety with SSRI or other such medication. today patient is able to open his right eye, still has difficulty with ambulation, patient does have chronic back pain, knee and leg pain, concern patient may have CVA, CTA of the brain and neck are negative for any acute injury Cspine x-ray shows extensive OA, to further evaluate patient will have MRI of brain and orbits which is pending due to mechanical problem with MRI Machine, patient was seen by neurologist and recommended MRI of the brain is normal and EEG as well and MRI of orbits is normal as well. he is clinically improvig and right eye ptosis has improved patient has history alcohol, he drinks daily for a longtime, concern for withdrawal will monitor with CIWA protocol patient remains stable does not show any sign of alcohol withdrawal. today will discharge home. Time Spent with Patient Time attestation: Total time spent providing and/or coordinating discharge services: Exam Narrative: Patient is comfortable, NAD HEENT: Right eyelids are more open today, left eyes is clear and none icteric LUNGS:CTA HEART: RR S1S2 ABD: BS+, Soft and nontender Lower extremities: no edema SKIN: nonjaundiced Neuro: grossly intact. DS: Data Data Completed and Pending Labs on day of discharge: Labs from last 24 hours 11/04/24 11/04/24 11/04/24 12:02 06:01 05:14 WBC 5.7 RBC 4.61 Hgb 14.2 Hct 43.1 MCV 93.5 MCH 30.8 MCHC 32.9 RDW 12.9 Plt Count 281 MPV 9.0 Sodium 130 L Potassium 4.4 Chloride 98 Carbon Dioxide 21 L Anion Gap 11 BUN 18 Creatinine 0.90 Estim Creat Clear Calc 73 Estimated GFR > 60 Glucose 83 POC Capillary Glucose 112 H 96 Calcium 8.9 Magnesium 2.0 11/03/24 11/03/24 23:31 18:10 WBC RBC Hgb Hct MCV MCH MCHC RDW Plt Count MPV Sodium Potassium Chloride Carbon Dioxide Anion Gap BUN Creatinine Estim Creat Clear Calc Estimated GFR Glucose POC Capillary Glucose 84 143 H Calcium Magnesium Discharge Plan Discharge Attending physician on discharge: Loretta Nelson Consulting providers: Michael Steinberg; Alfredo Tristan; Karthik Church; El Valdovinos; Rubin Pino Discharging Clinician: Elan Hernandez Patient Disposition: Home, Self-Care Activity: as tolerated Diet: heart healthy Discharge Instructions: patient to follow up with his primary care provider as soon as possible, patient is instructed if any symptoms worsen to go to nearest ER. Patient Instructions: Antibiotic Form Patient Language: Portuguese Stand Alone Forms: General Discharge Information Follow-up/Referrals: UNKNOWN,DOCTOR [Primary Care Provider] - Discharge Medications: Continued multivitamin Tablet 1 tablet PO DAILY lisinopril 20 mg tablet 20 mg PO DAILY carvedilol 12.5 mg tablet 12.5 mg PO BID thiamine HCl (vitamin B1) 100 mg tablet 100 mg PO DAILY Qty: 30 0RF folic acid 1 mg tablet 1 mg PO DAILY Qty: 30 0RF diazepam 5 mg tablet 5 mg PO TID PRN (Reason: anxiety) diclofenac sodium 75 mg tablet,delayed release (DR/EC) 75 mg PO Q12H tadalafil 20 mg tablet 20 mg PO DAILY Date of admission: 11/04/24 16:21 Primary Care Provider: UNKNOWN,DOCTOR Admitting Provider: Loretta Nelson Attending physician on admission: Elan Hernandez Condition: Stable
[2024-11-05 11:19] LABS: Vitamin B1 54 nmol/L (8-30)
== END 2024-11-04 18:10 | disposition home or self-care (01) | DRG 123 ==
LOC: ANHED 21:29 → ANH3MEDSUR 11-02 01:36
PROVIDERS: Psychiatry & Neurology Neurology; Admitting Provider Internal Medicine; Emergency Provider Student in an Organized Health Care Education/Training Program; Visit Provider Family Medicine
DX: H02.401 Unspecified ptosis of right eyelid (principal); E87.1 Hypo-osmolality and hyponatremia; R41.3 Other amnesia; R26.81 Unsteadiness on feet; G62.1 Alcoholic polyneuropathy; F10.90 Alcohol use, unspecified, uncomplicated; E83.42 Hypomagnesemia; I10 Essential (primary) hypertension; F41.9 Anxiety disorder, unspecified; D64.9 Anemia, unspecified; Z85.038 Personal history of other malignant neoplasm of large intestine; Z96.653 Presence of artificial knee joint, bilateral; Z96.1 Presence of intraocular lens; Z98.42 Cataract extraction status, left eye; Z98.41 Cataract extraction status, right eye
CPT/HCPCS: 36415; 70496; 70498; 70543; 70551; 71045; 72125; 80048; 80053; 80143; 80179; 80307; 81003; 82077; 82140; 82306; 82550; 82607; 82746; 82948; 83605; 83735; 83880; 84425; 84443; 84484; 85025; 85027; 85610; 85730; 87637; 93005; 95816; 96374; 97110; 97161; 97166; 97530; 99285; A9270; A9579; G0378; J3475; Q9967